=== PATIENT | female | born 1940 | race Hispanic/Latino ===

== ENCOUNTER 2017-01-04 17:50 | Emergency (ER) | payer MEDICARE, OTHER ==
[2017-01-04 18:14] VITALS: BMI 26.9
--- NOTE | 2017-01-04 18:17 | ED PDOC ---
Arrival/HPI <Oliva Aldana - Last Filed: 01/04/17 21:27> - General Historian: Patient <Shay Palma - Last Filed: 01/04/17 21:54> - General Time Seen by Provider: 01/04/17 18:13 - History of Present Illness Narrative History of Present Illness (Text): 01/04/17 18:17 76yo female with PMhx of bronchitis, CAD with stents, hypercholestrol, anxiety , BIBA for evaluation s/p trauma. Patient states she became dizzy and fell this evening. states she used a new inhaler for her Bronchitis today and felt dizzy s /p. Notes that she landed on her left side. Having pain to her left hip, pelvic and thigh. Denies LOC, but states reports persistent lightheadedness. Denies headache, visual change, focal weakness, aphasia, back pain, abdominal pain nausea, vomiting, any other complaint. she notes surgical history of left hip replacement. She is currently on Plavix and ASA. (Shay Palma) Past Medical History - Provider Review Nursing Documentation Reviewed: Yes - Infectious Disease Hx of Infectious Diseases: None - Tetanus Immunization Tetanus Immunization: Unknown - Cardiac Hx Pacemaker: No - Pulmonary Hx Chronic Obstructive Pulmonary Disease (COPD): Yes - Neurological Hx Paralysis: No - HEENT Hx HEENT Disorder: No - Renal Hx Kidney Stones: Yes - Endocrine/Metabolic Hx Endocrine Disorders: No - Hematological/Oncological Hx Blood Transfusions: Yes (x4) Hx Blood Transfusion Reaction: No - Integumentary Hx Dermatological Disorder: No - Musculoskeletal/Rheumatological Hx Musculoskeletal Disorders: Yes (L HIP ORIF,L4 L5 LAMINECTOMY,BACK SX,REX.KNEE ,L SHOULDER,RT ANKLE) - Gastrointestinal Hx Gastrointestinal Disorders: Yes Other/Comment: gi bleed - Genitourinary/Gynecological Hx Genitourinary Disorders: No - Psychiatric Hx Emotional Abuse: No Hx Physical Abuse: No Hx Substance Use: No - Surgical History Other/Comment: right ankle pin, right knee fx with pin, carpal tunnel, right hip replacement, vertebrae replacement with 2 screws, 2 rods, 2 artificial verterbrae to cervical spine, and 2 in mid back, left knee. arthoscopic sx - Anesthesia Hx Anesthesia Reactions: No Hx Malignant Hyperthermia: No - Suicidal Assessment Feels Threatened In Home Enviroment: No <Shay Palma - Last Filed: 01/04/17 21:54> Family/Social History - Physician Review Nursing Documentation Reviewed: Yes Family/Social History: Unknown Family HX Smoking Status: Current Some Days Smoker Hx Alcohol Use: No Hx Substance Use: No Hx Substance Use Treatment: No <Shay Palma A - Last Filed: 01/04/17 21:54> Allergies/Home Meds <Oliva Aldana - Last Filed: 01/04/17 21:27> <Shay Palma A - Last Filed: 01/04/17 21:54> Allergies/Adverse Reactions: Allergies codeine Allergy (Verified 01/04/17 18:14) ANAPHYLAXIS hydromorphone HCl [From Dilaudid] Allergy (Verified 01/04/17 18:14) ANAPHYLAXIS meperidine HCl [From Demerol] Allergy (Verified 01/04/17 18:14) ANAPHYLAXIS Home Medications: Home Meds Medication Instructions Recorded Confirmed Clopidogrel [Plavix] 75 mg PO DAILY 04/18/12 01/04/17 Raloxifene HCl [Evista] 60 mg PO DAILY 04/18/12 01/04/17 Aspirin [Adult Low Dose Aspirin EC] 81 mg PO DAILY 10/18/16 01/04/17 Pantoprazole Sodium [Protonix] 40 mg PO DAILY 10/18/16 01/04/17 Rosuvastatin Calcium [Crestor] 20 mg PO HS 10/18/16 01/04/17 ALPRAZolam [Xanax] 1 mg PO DAILY 10/28/16 01/04/17 Ascorbate Calcium [Vitamin C] 500 mg PO DAILY 10/28/16 01/04/17 Calcium Carbonate/Vitamin D3 1 each PO DAILY 10/28/16 01/04/17 [Calcium 1,000 + D3 Caplet] Folic Acid 1 mg PO DAILY 10/28/16 01/04/17 Iron Polysaccharide Complex 150 mg PO DAILY 10/28/16 01/04/17 [Nu-Iron 150] Levocetirizine Dihydrochloride 5 mg PO DAILY 10/28/16 01/04/17 [Xyzal] Montelukast [Singulair] 10 mg PO DAILY 10/28/16 01/04/17 Multivit, Iron, Min #5, FA 1 tab PO DAILY 10/28/16 01/04/17 [Strovite Forte] Oxycodone HCl/Acetaminophen 1 each PO PRN PRN 10/28/16 01/04/17 [Percocet 10-325 mg Tablet] Tolterodine Tartrate [Detrol LA] 4 mg PO DAILY 10/28/16 01/04/17 Review of Systems - Physician Review All systems were reviewed & negative as marked: Yes - Review of Systems Constitutional: Normal Eyes: Normal ENT: Normal Respiratory: Normal Cardiovascular: Normal Gastrointestinal: Normal Genitourinary Female: Normal Musculoskeletal: Arthralgias (Left hip/thigh pain) Skin: Normal Neurological: Dizziness. absent: Headache, Focal Weakness, Gait Changes, Speech Changes Endocrine: Normal Hemo/Lymphatic: Normal Psychiatric: Normal <Diru,Happiness A - Last Filed: 01/04/17 21:54> Physical Exam Vital Signs Reviewed: Yes Temperature: Afebrile Blood Pressure: Normal Pulse: Regular Respiratory Rate: Normal Appearance: Positive for: Well-Appearing, Non-Toxic, Comfortable Pain Distress: None Mental Status: Positive for: Alert and Oriented X 3 - Systems Exam Head: Present: Atraumatic, Normocephalic Pupils: Present: PERRL Extroacular Muscles: Present: EOMI Conjunctiva: Present: Normal Mouth: Present: Moist Mucous Membranes Neck: Present: Normal Range of Motion Respiratory/Chest: Present: Clear to Auscultation, Good Air Exchange. No: Respiratory Distress, Accessory Muscle Use Cardiovascular: Present: Regular Rate and Rhythm, Normal S1, S2. No: Murmurs Abdomen: Present: Normal Bowel Sounds. No: Tenderness, Distention, Peritoneal Signs Back: Present: Normal Inspection Upper Extremity: Present: Normal Inspection, Normal ROM. No: Cyanosis, Edema, Tenderness Lower Extremity: Present: NORMAL PULSES, Normal ROM, Tenderness (LEft proximal thigh/hip), Neurovascularly Intact. No: Edema, Swelling, Erythema, Deformity, Temperature Abnormalties Neurological: Present: GCS=15, CN II-XII Intact, Speech Normal, Motor Func Grossly Intact, Normal Sensory Function, Memory Normal, Other (No focal neurological deficit) Skin: Present: Warm, Dry, Normal Color. No: Rashes Psychiatric: Present: Alert, Oriented x 3, Normal Insight, Normal Concentration <Diru,Happiness A - Last Filed: 01/04/17 21:54> Vital Signs Temp Pulse Resp BP Pulse Ox 01/04/17 21:47 97.7 F 94 H 18 145/89 95 01/04/17 20:52 81 19 159/77 H 98 01/04/17 17:51 98.4 F 82 18 173/74 H 90 L Medical Decision Making <Oliva Aldana - Last Filed: 01/04/17 21:27> <Shay Palma - Last Filed: 01/04/17 21:54> ED Course and Treatment: 01/04/17 21:29 Patient seen and examined - with near syncopal episode; no head injury - on asa and plavix - CT showing pelvis fx with hemorrhage and now hematuria - hemodynamically stable - spoke with Dr. Addison, [facility] accepting attending for transfer. (Oliva Aldana) 01/04/17 20:57 Pt present to ED for stated history. While in ED she is hemodynamically stable. AAO x3. Appears comfortable and in no distress. Lab was unremarkable EKG NSR @79bpm . No ST changes noted. Head CT - No acute intracranial derangement Hip CT - Acute fracture of the left superior pubic ramus. This is comminuted and minimally displaced. Acute fracture of the left inferior pubic ramus, which is nondisplaced. Arthroplasty device in the right hip. Intramedullary lubna and screw device in the left hip. No additional acute fractures seen. No evidence of acute dislocation. No evidence of significant widening of the pubic symphysis or sacroiliac joints. SOFT TISSUES: No evidence of significant soft tissue hematoma. INTRAPERITONEAL SPACE: Small to moderate amount of acute hemorrhage in the left pelvis, mainly located anteriorly. This abuts the bladder on the left. IMPRESSION: - Left pelvic hemorrhage. - Acute fractures of the left superior and inferior pubic rami. - See above for remaining findings. 01/04/17 21:06 On re evaluation pt remain hemodynamically stable. AAO x3. 1L of NS was ordered Case was DIXON Mccarthy Case was DW Dr. Aldana who also saw patient in ED. The plan was to transfer patient to a trauma center secondary to the hemorrhage on the CT. PT is also on anticoagulant, Plavix and ASA. Result and plan was DW the patient and she agreed. Dr. Aldana DC with Dr. Addison, at trauma center and he accepted patient for transfer. (Diru,Happiness A) - Lab Interpretations Lab Results: 01/04/17 18:24 01/04/17 18:24 Lab Results 01/04/17 20:20: Urine Color Dark red, Urine Appearance Cloudy, Urine pH 7.0, Ur Specific [place] 1.015, Urine Protein >=300 H, Urine Glucose (UA) Negative, Urine Ketones Trace H, Urine Blood Large H, Urine Nitrate Positive H, Urine Bilirubin Negative, Urine Urobilinogen 1.0 H, Ur Leukocyte Esterase Small H, Urine RBC Tntc, Urine WBC 5 - 10 01/04/17 18:24: WBC 10.7 D, RBC 4.10, Hgb 10.6 L, Hct 32.7 L, MCV 79.8 L, MCH 25.9, MCHC 32.4, RDW 17.2 H, Plt Count 252, MPV 10.3, Gran % 77.8 H, Lymph % ( Auto) 15.7 L, Cole % (Auto) 4.3, Eos % (Auto) 1.9, Baso % (Auto) 0.3, Gran # 8.32 H, Lymph # 1.7, Cole # 0.5, Eos # 0.2, Baso # 0.03, PT 11.4, INR 1.06, APTT 28.6, Sodium 138, Potassium 3.9, Chloride 103, Carbon Dioxide 26, Anion Gap 13, BUN 17, Creatinine 0.8, Est GFR ( Amer) > 60, Est GFR (Non-Af Amer) > 60, Random Glucose 89, Calcium 9.8, Total Bilirubin 0.4, AST 37, ALT 35 , Alkaline Phosphatase 61, Lactate Dehydrogenase 743 H, Total Creatine Kinase 63 , Troponin I < 0.01, Total Protein 8.0, Albumin 4.1, Globulin 3.9, Albumin/ Globulin Ratio 1.1 - RAD Interpretation Radiology Orders: 01/04/17 18:15 HEAD W/O CONTRAST [CT] Stat Hip [CT HIP W/O CONTRAST BILATERAL] [CT] Stat 01/04/17 18:16 Femur Left [FEMUR MIN 2 VIEWS LT] [RAD] Stat - Medication Orders Current Medication Orders: Sodium Chloride (Sodium Chloride 0.9%) 1,000 mls @ 999 mls/hr IV .Q1H1M STA Stop: 01/04/17 22:03 Last Admin: 01/04/17 21:11 Dose: 999 MLS/HR eMAR Start Stop Document 01/04/17 21:11 SE (Rec: 01/04/17 21:11 SE [id number]) Intravenous Solution Start Date 01/04/17 Start Time 21:11 Discontinued Medications Acetaminophen (Tylenol 325mg Tab) 650 mg PO STAT STA Stop: 01/04/17 19:04 Last Admin: 01/04/17 19:07 Dose: 650 MG MAR Pain/Vitals Document 01/04/17 19:07 SE (Rec: 01/04/17 19:07 [id number]) Pain Reassessment Is This A Pain ReAssessment? No Sleep Is patient sleeping during reassessment? No Presence of Pain Presence of Pain Yes Pain Scale Used Pain Scale Used Numeric Location Left, Right or Bilateral Left Pain Location Body Site Hip Acetaminophen (Tylenol 325mg Tab) Confirm Administered Dose 650 mg .ROUTE .STK- MED ONE Stop: 01/04/17 19:07 Last Admin: 01/04/17 19:07 Dose: Tramadol HCl (Ultram) Confirm Administered Dose 50 mg .ROUTE .STK-MED ONE Stop: 01/04/17 21:11 Last Admin: 01/04/17 21:24 Dose: Tramadol HCl (Ultram) 50 mg PO STAT STA Stop: 01/04/17 21:15 Last Admin: 01/04/17 21:28 Dose: 50 MG Disposition/Present on Arrival - Present on Arrival Any Indicators Present on Arrival: No <Oliva Aldana - Last Filed: 01/04/17 21:27> - Present on Arrival Any Indicators Present on Arrival: No History of DVT/PE: No History of Uncontrolled Diabetes: No Urinary Catheter: No History Surgical Site Infection Following: None - Disposition Have Diagnosis and Disposition been Completed?: Yes Disposition Time: 21:40 <Shay Palma - Last Filed: 01/04/17 21:54> - Disposition Diagnosis: Hip fracture, Hemorrhage Disposition: Transfer [facility] Patient Problems: Current Active Problems Problem Status Diagnosed Hemorrhage Acute Hip fracture Acute Near syncope Acute Condition: GUARDED Referrals: Carlos Mccarthy MD [Primary Care Provider] - Follow up with primary
[2017-01-04 18:30] LABS: ADD MANUAL DIFF? NO
[2017-01-04 18:45] LABS: BASO # 0.03 K/mm3 (0.0-2.0); BASO % 0.3 % (0.0-3.0); EOS # 0.2 (0.0-0.7); EOS % 1.9 % (1.5-5.0); GRAN # 8.32 (1.4-6.5); GRAN % 77.8 % (50.0-68.0); HEMATOCRIT 32.7 % (36.0-48.0); LYMPH # 1.7 (1.2-3.4); LYMPH % 15.7 % (22.0-35.0); MEAN CELL VOLUME 79.8 fL (80.0-105.0); MEAN CORPUSCULAR HEMOGLOBIN 25.9 pg (25.0-35.0); MEAN CORPUSCULAR HGB CONC 32.4 g/dl (31.0-37.0); MEAN PLATELET VOLUME 10.3 fl (7.0-11.0); MONO # 0.5 (0.1-0.6); MONO % 4.3 % (1.0-6.0); PLATELET COUNT 252 10^3/uL (120.0-450.0); RED CELL DISTRIBUTION WIDTH 17.2 % (11.5-14.5); WHITE BLOOD COUNT 10.7 10^3/ul (4.5-11.0)
[2017-01-04 18:47] LABS: ALB/GLOB RATIO 1.1 (1.1-1.8); ALKALINE PHOSPHATASE 61 U/L (38-133); ALT/SGPT 35 U/L (7-56); AST/SGOT 37 U/L (15-39); BILIRUBIN,TOTAL 0.4 mg/dL (0.2-1.3); BLOOD UREA NITROGEN 17 mg/dL (7-21); CALCIUM 9.8 mg/dL (8.4-10.5); CARBON DIOXIDE 26 mmol/L (21-33); CHLORIDE 103 mmol/L (98-107); GFR AFRICAN-AMERICAN > 60; GLUCOSE,RANDOM 89 mg/dL (70-110); POTASSIUM 3.9 mmol/L (3.6-5.0); SODIUM 138 mmol/L (132-148)
[2017-01-04 18:57] LABS: INR 1.06 (0.93-1.08); PARTIAL THROMBOPLASTIN TIME 28.6 Seconds (23.7-30.8)
[2017-01-04 18:59] LABS: TROPONIN I < 0.01 ng/mL
--- NOTE | 2017-01-04 20:24 | CT ---
EXAM: CT Head Without Intravenous Contrast CLINICAL HISTORY: 76 years old, female; Injury or trauma; Fall; Initial encounter; Blunt trauma (contusions or hematomas); Consciousness not specified; Additional info: Head injury/dizziness TECHNIQUE: Axial computed tomography images of the head/brain without intravenous contrast. EXAM DATE/TIME: 01/04/2017 6:15 PM COMPARISON: None is available. 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 Areas of hypodensity seen in the white matter bilaterally, nonspecific in appearance, but most likely representing chronic small vessel ischemic changes, in a patient of this age. Diffuse, age-related cortical atrophy and ventriculomegaly. No significant acute abnormality identified. No acute hemorrhage seen within the brain. No acute extra-axial fluid collections visualized. No evidence of significant mass effect within the brain. VENTRICLES: See above. BONES/JOINTS: No acute fractures or other acute bony abnormality noted. SOFT TISSUES: No acute abnormality of the visualized soft tissues is seen. VASCULATURE: Atherosclerotic calcification. SINUSES: Christofer mucosal thickening in the bilateral ethmoid and left frontal sinuses. MASTOID AIR CELLS: Mastoid air cells appear clear. IMPRESSION: - No evidence of acute intracranial injury or fractures. - See above for remaining findings.
--- NOTE | 2017-01-04 20:35 | CT ---
EXAM: CT Left Lower Extremity Without Intravenous Contrast, Hip CT Right Lower Extremity Without Intravenous Contrast, Hip CLINICAL HISTORY: 76 years old, female; Injury or trauma; Fall; Initial encounter; Blunt trauma; Hip; Bilateral; Prior surgery; Surgery date: 6+ months; Surgery type: Bilateral hip surgeries; Additional info: Hip/left hip pain S/P trauma TECHNIQUE: Axial computed tomography images of the bilateral hips without intravenous contrast. Coronal and sagittal reformatted images were created and reviewed. EXAM DATE/TIME: 01/04/2017 6:15 PM COMPARISON: No relevant prior studies available. FINDINGS: LIMITATIONS: Metallic hardware in the hips bilaterally. There is associated streak artifact, which obscures adjacent structures. BONES/JOINTS: Acute fracture of the left superior pubic ramus. This is comminuted and minimally displaced. Acute fracture of the left inferior pubic ramus, which is nondisplaced. Arthroplasty device in the right hip. Intramedullary lubna and screw device in the left hip. No additional acute fractures seen. No evidence of acute dislocation. No evidence of significant widening of the pubic symphysis or sacroiliac joints. SOFT TISSUES: No evidence of significant soft tissue hematoma. INTRAPERITONEAL SPACE: Small to moderate amount of acute hemorrhage in the left pelvis, mainly located anteriorly. This abuts the bladder on the left. IMPRESSION: - Left pelvic hemorrhage. - Acute fractures of the left superior and inferior pubic rami. - See above for remaining findings.
[2017-01-04 20:38] LABS: URINE BILIRUBIN NEGATIVE (NEGATIVE); URINE BLOOD LARGE (NEGATIVE); URINE GLUCOSE (UA) NEGATIVE (NEGATIVE); URINE KETONE TRACE mg/dL (NEGATIVE); URINE LEUKOCYTE ESTERASE SMALL Leu/uL (NEGATIVE); URINE PROTEIN >=300 mg/dL (<30 mg/dL)
[2017-01-04 20:44] LABS: URINE APPEARANCE CLOUDY (CLEAR); URINE COLOR DARK RED (YELLOW)
[2017-01-04 20:48] LABS: URINE RBC TNTC /hpf (0-2)
[2017-01-04] MEDS ORDERED: Sodium Chloride 0.9% 1,000 ML IV STA (21:03)
[2017-01-04 21:48] VITALS: BP 145/89; PULSE 94; RESP 18; TEMP 97.7; O2SAT 95
--- NOTE | 2017-01-05 09:05 | RAD ---
PROCEDURE: Left Femur Radiographs. HISTORY: thigh pain s/p trauma COMPARISON: None. TECHNIQUE: AP and Lateral Radiographs of the left femur. FINDINGS: FEMUR: Normal. No fracture. SOFT TISSUES: Normal. OTHER FINDINGS: None. IMPRESSION: Unremarkable radiographs of the left femur.
--- NOTE | 2017-01-05 15:34 | CARD ---
APPROVED REPORT EKG Measurement Heart [id number] MI [id number] <Conclusion> Normal sinus rhythm Normal ECG
== END 2017-01-04 22:00 | disposition short-term general hospital (02) ==
LOC: ED 17:50
DX: S32.592A Other specified fracture of left pubis, initial encounter for closed fracture (principal); W19.XXXA Unspecified fall, initial encounter; R58 Hemorrhage, not elsewhere classified; F17.210 Nicotine dependence, cigarettes, uncomplicated; Z96.641 Presence of right artificial hip joint
CPT/HCPCS: 70450; 73552; 73700; 80053; 81001; 82550; 83615; 84484; 85025; 85610; 85730; 93005; 99285; J7040

== ENCOUNTER 2017-08-30 10:44 | Inpatient (IN) | payer MEDICARE, OTHER ==
[2017-08-30 10:53] VITALS: BMI 24.0
[2017-08-30 11:52] LABS: BASO # 0.02 K/mm3 (0.0-2.0); BASO % 0.3 % (0.0-3.0); EOS # 0.1 (0.0-0.7); EOS % 1.8 % (1.5-5.0); GRAN # 6.11 (1.4-6.5); GRAN % 77.3 % (50.0-68.0); LYMPH # 1.3 (1.2-3.4); LYMPH % 15.8 % (22.0-35.0); MEAN CELL VOLUME 84.6 fl (80.0-105.0); MEAN CORPUSCULAR HEMOGLOBIN 26.9 pg (25.0-35.0); MEAN CORPUSCULAR HGB CONC 31.8 g/dl (31.0-37.0); MONO # 0.4 (0.1-0.6); MONO % 4.8 % (1.0-6.0); RED CELL DISTRIBUTION WIDTH 15.5 % (11.5-14.5); WHITE BLOOD COUNT 7.9 10^3/ul (4.5-11.0)
[2017-08-30 12:01] LABS: ALB/GLOB RATIO 1.1 (1.1-1.8); ALKALINE PHOSPHATASE 62 U/L (38-126); ALT/SGPT 25 U/L (7-56); AST/SGOT 30 U/L (14-36); BILIRUBIN,TOTAL 0.5 mg/dL (0.2-1.3); BLOOD UREA NITROGEN 17 mg/dL (7-21); CALCIUM 10.3 mg/dL (8.4-10.5); CARBON DIOXIDE 26 mmol/L (21-33); CHLORIDE 103 mmol/L (98-107); GFR AFRICAN-AMERICAN > 60; GLUCOSE,RANDOM 95 mg/dL (70-110); POTASSIUM 4.7 mmol/L (3.6-5.0); SODIUM 138 mmol/L (132-148); TOTAL PROTEIN 8.1 g/dL (5.8-8.3)
--- NOTE | 2017-08-30 13:12 | RAD ---
PROCEDURE: Radiographs of the chest and bilateral ribs HISTORY: fall, rib pain COMPARISON: 06/29/2017 TECHNIQUE: Frontal radiograph of the chest and multiple oblique radiographs of the bilateral ribs were obtained. FINDINGS: RIGHT RIBS: Displaced healing fractures are seen of the right 6 7th 8 and 10th ribs. There is now callus formation around the fractures. LEFT RIBS: No fracture or focal lesion visualized. LUNGS: Minimal infiltrate at the right lung base and small right pleural effusion showing improvement from prior exam PLEURA: No pneumothorax or pleural fluid. CARDIOVASCULAR: Normal sized heart. No pulmonary vascular congestion. OTHER FINDINGS: None. IMPRESSION: Displaced healing fractures are seen of the right 6 7th 8 and 10th ribs. There is now callus formation around the fractures.
[2017-08-30] MEDS ORDERED: Azithromycin 500MG/NS 250ml 500 MG/250 ML BAG IVPB STA (13:36)
[2017-08-30] MEDS ORDERED: cefTRIAXone 1 gm 100 ML IVPB STA (13:36)
[2017-08-30] MEDS ORDERED: cefTRIAXone 1 gm 1 GM/100 ML BAG IVPB STA (13:42)
[2017-08-30 14:23] LABS: TROPONIN I < 0.01 ng/mL
--- NOTE | 2017-08-30 14:23 | CT ---
PROCEDURE: CT HEAD WITHOUT CONTRAST. HISTORY: dizzy/ fall COMPARISON: 01/04/2017 TECHNIQUE: Axial computed tomography images were obtained through the head/brain without intravenous contrast. Radiation dose: Total exam DLP = 703 mGy-cm. This CT exam was performed using one or more of the following dose reduction techniques: Automated exposure control, adjustment of the mA and/or kV according to patient size, and/or use of iterative reconstruction technique. FINDINGS: HEMORRHAGE: No intracranial hemorrhage. BRAIN: No mass effect or edema. Chronic microvascular changes. Mild atrophy VENTRICLES: Unremarkable. No hydrocephalus. CALVARIUM: Unremarkable. PARANASAL SINUSES: Unremarkable as visualized. No significant inflammatory changes. MASTOID AIR CELLS: Unremarkable as visualized. No inflammatory changes. OTHER FINDINGS: None. IMPRESSION: No acute findings
--- NOTE | 2017-08-30 15:23 | ED PDOC ---
Arrival/HPI - General Chief Complaint: Rib Injury Time Seen by Provider: 08/30/17 10:59 Historian: Patient - History of Present Illness Narrative History of Present Illness (Text): 08/30/17 15:12 77-year-old female presents to the with left-sided rib pain status post fall. Patient states 2 nights ago she was dizzy and tripped and fell landing on the edge of her walker sustaining an injury to the left ribs. Patient denies head or head. She denies headache. Denies loss of consciousness. Patient states she was feeling okay yesterday and had been applying heat to the ribs. Patient states when she woke up today the pain was severe. Patient states the pain is worse with movement or deep inspiration. She denies chest pain. Patient states the pain is localized to the lateral posterior aspect of the left ribs. Patient states she has a history of right rib fracture a few months ago. Patient states she recently completed a course of Levaquin for pneumonia. Patient denies abdominal pain. No urinary symptoms. Denies fevers or chills. Patient states she has a history of chronic bronchitis. No other complaints. Patient states she has a history of dizziness and is being followed by a neurologist and has an outpatient CT angiography of the head scheduled for this Monday. Time/Duration: Other (2 nights ago) Symptom Course: Worsening Quality: Stabbing, Throbbing Past Medical History - Provider Review Nursing Documentation Reviewed: Yes - Travel History Have you recently traveled outside [place] w/in the past 3 mons?: No - Infectious Disease Hx of Infectious Diseases: None - Tetanus Immunization Tetanus Immunization: Unknown - Reproductive Menopause: No - Cardiac Hx Pacemaker: No - Pulmonary Hx Chronic Obstructive Pulmonary Disease (COPD): Yes - Neurological Hx Paralysis: No - HEENT Hx HEENT Disorder: No - Renal Hx Kidney Stones: Yes - Endocrine/Metabolic Hx Endocrine Disorders: No - Hematological/Oncological Hx Blood Transfusions: Yes (x4) Hx Blood Transfusion Reaction: No - Integumentary Hx Dermatological Disorder: No - Musculoskeletal/Rheumatological Hx Musculoskeletal Disorders: Yes (L HIP ORIF,L4 L5 LAMINECTOMY,BACK SX,REX.KNEE ,L SHOULDER,RT ANKLE) - Gastrointestinal Hx Gastrointestinal Disorders: Yes Other/Comment: gi bleed - Genitourinary/Gynecological Hx Genitourinary Disorders: No - Psychiatric Hx Emotional Abuse: No Hx Physical Abuse: No Hx Substance Use: No - Surgical History Other/Comment: right ankle pin, right knee fx with pin, carpal tunnel, right hip replacement, vertebrae replacement with 2 screws, 2 rods, 2 artificial verterbrae to cervical spine, and 2 in mid back, left knee. arthoscopic sx - Anesthesia Hx Anesthesia: Yes Hx Anesthesia Reactions: No Hx Malignant Hyperthermia: No - Suicidal Assessment Feels Threatened In Home Enviroment: No Family/Social History - Physician Review Nursing Documentation Reviewed: Yes Family/Social History: Unknown Family HX Smoking Status: Current Some Days Smoker Hx Alcohol Use: No Hx Substance Use: No Hx Substance Use Treatment: No Allergies/Home Meds Allergies/Adverse Reactions: Allergies codeine Allergy (Verified 08/30/17 10:58) ANAPHYLAXIS hydromorphone HCl [From Dilaudid] Allergy (Verified 08/30/17 10:58) ANAPHYLAXIS meperidine HCl [From Demerol] Allergy (Verified 08/30/17 10:58) ANAPHYLAXIS Home Medications: Home Meds Medication Instructions Recorded Confirmed Clopidogrel [Plavix] 75 mg PO DAILY 04/18/12 08/30/17 Raloxifene HCl [Evista] 60 mg PO DAILY 04/18/12 08/30/17 Aspirin [Adult Low Dose Aspirin EC] 81 mg PO DAILY 10/18/16 08/30/17 Pantoprazole Sodium [Protonix] 40 mg PO DAILY 10/18/16 08/30/17 Rosuvastatin Calcium [Crestor] 20 mg PO HS 10/18/16 08/30/17 ALPRAZolam [Xanax] 1 mg PO DAILY 10/28/16 08/30/17 Ascorbate Calcium [Vitamin C] 500 mg PO DAILY 10/28/16 08/30/17 Calcium Carbonate/Vitamin D3 1 each PO DAILY 10/28/16 08/30/17 [Calcium 1,000 + D3 Caplet] Folic Acid 1 mg PO DAILY 10/28/16 08/30/17 Iron Polysaccharide Complex 150 mg PO DAILY 10/28/16 08/30/17 [Nu-Iron 150] Levocetirizine Dihydrochloride 5 mg PO DAILY 10/28/16 08/30/17 [Xyzal] Montelukast [Singulair] 10 mg PO DAILY 10/28/16 08/30/17 Multivit,Iron,Min 5/Folic Acid 1 tab PO DAILY 10/28/16 08/30/17 [Strovite Forte] Oxycodone HCl/Acetaminophen 1 each PO PRN PRN 10/28/16 08/30/17 [Percocet 10-325 mg Tablet] Tolterodine Tartrate [Detrol LA] 4 mg PO DAILY 10/28/16 08/30/17 Review of Systems - Review of Systems Constitutional: absent: Fatigue, Fevers ENT: absent: Sore Throat, Sinus Congestion Respiratory: SOB, Cough Cardiovascular: absent: Chest Pain, Palpitations Gastrointestinal: absent: Abdominal Pain, Nausea, Vomiting Genitourinary Female: absent: Dysuria Musculoskeletal: Arthralgias. absent: Back Pain, Neck Pain Skin: absent: Rash, Pruritis Neurological: Dizziness. absent: Headache Psychiatric: absent: Anxiety, Depression Physical Exam Vital Signs Reviewed: Yes Vital Signs Temp Pulse Resp BP Pulse Ox 08/30/17 15:00 79 18 116/71 95 08/30/17 13:26 86 18 114/69 95 08/30/17 11:24 98.0 F 86 17 111/68 88 L 08/30/17 11:03 98.1 F 85 18 111/68 95 Temperature: Afebrile Blood Pressure: Normal Pulse: Regular Respiratory Rate: Tachypneic Appearance: Positive for: Well-Appearing, Non-Toxic, Comfortable Pain Distress: None Mental Status: Positive for: Alert and Oriented X 3 - Systems Exam Head: Present: Atraumatic Mouth: Present: Moist Mucous Membranes Neck: Present: Normal Range of Motion. No: MIDLINE TENDERNESS, Paraspinal Tenderness Respiratory/Chest: Present: Decreased Breath Sounds, Rhonchi, Tachypneic, Tender to Palpation (+ ttp over right and left lateral and posterior ribs; no edema, no erythema; no ecchymosis; no midline tenderness. ). No: Clear to Auscultation, Respiratory Distress, Wheezes Cardiovascular: Present: Regular Rate and Rhythm. No: Tachycardic Abdomen: No: Tenderness, Distention, Rebound, Guarding Back: No: Midline Tenderness, Paraspinal Tenderness Upper Extremity: Present: Normal ROM Lower Extremity: Present: Normal ROM Neurological: Present: GCS=15, Speech Normal Skin: Present: Warm, Dry Psychiatric: Present: Alert, Oriented x 3 Medical Decision Making ED Course and Treatment: 08/30/17 15:32 77yr old female with b/l rib pain s/p dizziness and fall 2 days ago. Hypoxic at 88% on room air slightly tachypneic. Patient given 3 L nasal cannula oxygen saturation 94-95% CBC within normal limits CMP within normal limits Troponin within normal limits EKG shows normal sinus rhythm at 83 bpm normal axis normal intervals no ST elevations cxr with b/l ribs; FINDINGS: RIGHT RIBS: Displaced healing fractures are seen of the right 6 7th 8 and 10th ribs. There is now callus formation around the fractures. LEFT RIBS: No fracture or focal lesion visualized. LUNGS: Minimal infiltrate at the right lung base and small right pleural effusion showing improvement from prior exam PLEURA: No pneumothorax or pleural fluid. CARDIOVASCULAR: Normal sized heart. No pulmonary vascular congestion. OTHER FINDINGS: None. IMPRESSION: Displaced healing fractures are seen of the right 6 7th 8 and 10th ribs. There is now callus formation around the fractures. pt given incentive spirometer; blood cultures pending. rocephin and zithromax started IV. pt with hypoxia; frequent falls/ recurrent dizziness with PNA on xray with failure of outpatient abx. splinting. requiring o2 and pain control. will admit. case discussed with dr. joshi accepts admission. consult pulm and neuro. impression; pneumonia with failure outpatient abx, rib fractures, rib contusion , dizziness, fall admit to remote tele. - Lab Interpretations Lab Results: 08/30/17 11:40 08/30/17 11:40 Lab Results 08/30/17 11:45: Lactate Dehydrogenase 437, Total Creatine Kinase 39, Troponin I < 0.01 08/30/17 11:40: WBC 7.9, RBC 4.49, Hgb 12.1, Hct 38.0, MCV 84.6, MCH 26.9, MCHC 31.8, RDW 15.5 H, Plt Count 255, MPV 10.0, Gran % 77.3 H, Lymph % (Auto) 15.8 L , Fannin % (Auto) 4.8, Eos % (Auto) 1.8, Baso % (Auto) 0.3, Gran # 6.11, Lymph # 1.3, Fannin # 0.4, Eos # 0.1, Baso # 0.02 08/30/17 11:40: Sodium 138, Potassium 4.7, Chloride 103, Carbon Dioxide 26, Anion Gap 14, BUN 17, Creatinine 0.7, Est GFR ( Amer) > 60, Est GFR (Non- Af Amer) > 60, Random Glucose 95, Calcium 10.3, Total Bilirubin 0.5, AST 30, ALT 25, Alkaline Phosphatase 62, Total Protein 8.1, Albumin 4.3, Globulin 3.8, Albumin/Globulin Ratio 1.1 - RAD Interpretation Radiology Orders: 08/30/17 11:24 RIBS BILATERAL W/PA CHEST [RAD] Stat 08/30/17 13:43 HEAD W/O CONTRAST [CT] Stat - Medication Orders Current Medication Orders: Discontinued Medications Azithromycin (Zithromax 500mg In Ns) 500 mg in 250 mls @ 167 mls/hr IVPB STAT STA PRN Reason: Protocol Stop: 08/30/17 15:05 Ceftriaxone Sodium (Rocephin 1 Gram Ivpb) 1 gm in 100 mls @ 200 mls/hr IVPB STAT STA PRN Reason: Protocol Stop: 08/30/17 14:11 Last Admin: 08/30/17 14:29 Dose: 200 mls/hr eMAR Start Stop Document 08/30/17 14:29 HI (Rec: 08/30/17 14:34 HI [facility] [id number]) Intravenous Solution Start Date 08/30/17 Start Time 14:33 Tramadol HCl (Ultram) 50 mg PO STAT STA Stop: 08/30/17 12:36 Last Admin: 08/30/17 12:44 Dose: 50 mg MAR Pain Assessment Document 08/30/17 12:44 HI (Rec: 08/30/17 12:45 HI [facility] [id number]) Pain Reassessment Is this a pain reassessment? No Sleep Is patient sleeping during reassessment? No Presence of Pain Presence of Pain Yes Disposition/Present on Arrival - Present on Arrival Any Indicators Present on Arrival: No History of DVT/PE: No History of Uncontrolled Diabetes: No Urinary Catheter: No History of Decub. Ulcer: No History Surgical Site Infection Following: None - Disposition Have Diagnosis and Disposition been Completed?: Yes Diagnosis: Dizziness, Hypoxia, Rib contusion, Ribs, multiple fractures Disposition: HOSPITALIZED Disposition Time: 13:31 Patient Plan: Telemetry Condition: FAIR
--- NOTE | 2017-08-30 17:57 | CP.PCM.CON ---
<Maren Tobin - Last Filed: 08/30/17 17:55> History of Present Illness - History of Present Illness History of Present Illness: PGY-2 Neurology consult note for Dr. Dougherty's service 77-year-old female with PMH of HTN, COPD, cardiac stntes, HLD, CAD, arthritis presents to the with left-sided rib pain status post fall. Patient states 2 nights ago she was dizzy and tripped and fell landing on the edge of her walker sustaining an injury to the left ribs. Patient denies hitting her head, headache , loss of consciousness. Patient was recently in Dr. Dougherty's office for dizziness. She stated that it gets worst with standing. She described it as rishi room spinning. Most likely positional vertigo that contributed to fall. Patient states she recently completed a course of Levaquin for pneumonia. Patient denies abdominal pain. She denies chest pain, sob, urinary symptoms, fevers or chills, No other complaints. In ED patient was found to be hypoxiemic. PMH: HTN, COPD, cardiac stents, HLD, CAD, arthritis PSH: right ankle pin, right knee fx with pin, carpal tunnel, right hip replacement, vertebrae replacement with 2 screws, 2 rods, 2 artificial verterbrae to cervical spine, and 2 in mid back, left knee. arthoscopic sx social history: light smoker, denies alcohol use, illicit drug use Review of Systems - Review of Systems All systems: reviewed and no additional remarkable complaints except (as stated in HPI) Past Patient History - Infectious Disease Hx of Infectious Diseases: None - Tetanus Immunizations Tetanus Immunization: Unknown - Past Social History Smoking Status: Current Some Days Smoker - CARDIAC Hx Pacemaker: No - PULMONARY Hx Chronic Obstructive Pulmonary Disease (COPD): Yes - NEUROLOGICAL Hx Paralysis: No - HEENT Hx HEENT Problems: No - RENAL Hx Kidney Stones: Yes - ENDOCRINE/METABOLIC Hx Endocrine Disorders: No - HEMATOLOGICAL/ONCOLOGICAL Hx Blood Transfusions: Yes (x4) Hx Blood Transfusion Reaction: No - INTEGUMENTARY Hx Dermatological Problems: No - MUSCULOSKELETAL/RHEUMATOLOGICAL Hx Musculoskeletal Disorders: Yes (L HIP ORIF,L4 L5 LAMINECTOMY,BACK SX,REX.KNEE ,L SHOULDER,RT ANKLE) - GASTROINTESTINAL Hx Gastrointestinal Disorders: Yes Other/Comment: gi bleed - GENITOURINARY/GYNECOLOGICAL Hx Genitourinary Disorders: No - PSYCHIATRIC Hx Emotional Abuse: No Hx Physical Abuse: No Hx Substance Use: No - SURGICAL HISTORY Other/Comment: right ankle pin, right knee fx with pin, carpal tunnel, right hip replacement, vertebrae replacement with 2 screws, 2 rods, 2 artificial verterbrae to cervical spine, and 2 in mid back, left knee. arthoscopic sx - ANESTHESIA Hx Anesthesia: Yes Hx Anesthesia Reactions: No Hx Malignant Hyperthermia: No Meds Allergies/Adverse Reactions: Allergies Allergy/AdvReac Type Severity Reaction Status Date / Time codeine Allergy ANAPHYLAXIS Verified 08/30/17 17:57 hydromorphone HCl Allergy ANAPHYLAXIS Verified 08/30/17 17:57 [From Dilaudid] meperidine HCl [From Demerol] Allergy ANAPHYLAXIS Verified 08/30/17 17:57 Physical Exam - Constitutional Appears: No Acute Distress - Head Exam Head Exam: ATRAUMATIC, NORMAL INSPECTION, NORMOCEPHALIC - Eye Exam Eye Exam: Normal appearance - Respiratory Exam Respiratory Exam: NORMAL BREATHING PATTERN. absent: Respiratory Distress - Neurological Exam Neurological exam: Alert, CN II-XII Intact, Oriented x3 - Skin Skin Exam: Dry, Intact, Normal Color, Warm Results - Vital Signs Recent Vital Signs: Last Vital Signs Temp 98.1 F 08/30/17 16:23 Pulse 86 08/30/17 16:23 Resp 18 08/30/17 16:23 BP 105/57 L 08/30/17 16:23 Pulse Ox 95 08/30/17 16:23 - Labs Result Diagrams: 08/30/17 11:40 08/30/17 11:40 Assessment & Plan - Assessment and Plan (Free Text) Assessment: 77-year-old female with PMH of HTN, COPD, cardiac stents, HLD, CAD, arthritis presents to the with left-sided rib pain status post fall and dizziness due to probable BPV with hypoxemia with underlying de conditioning. 1. possible Positional vertigo 2. hypoxemia with PNA 3. HTN - CT head no acute findings - orthostatic vitals - CTA of neck and head - PT/OT - nasal cannula - monitor electrolytes, correct as needed case reviewed and discussed with attending <Prabhjot Dougherty - Last Filed: 08/30/17 19:58> Meds - Medications Medications: Current Medications Alprazolam (Xanax) 1 mg PO DAILY [facility] PRN Reason: Protocol Aspirin (Ecotrin) 81 mg PO DAILY [facility] Atorvastatin Calcium (Lipitor) 80 mg PO HS [facility] Clopidogrel Bisulfate (Plavix) 75 mg PO DAILY [facility] Folic Acid (Folic Acid) 1 mg PO DAILY [facility] Levalbuterol HCl (Xopenex) 1.25 mg IH [id number] [facility] Last Admin: 08/30/17 19:38 Dose: Not Given Montelukast Sodium (Singulair) 10 mg PO DAILY [facility] Non-Formulary Medication (Ascorbate Calcium [Vitamin C]) 500 mg PO DAILY [facility] Non-Formulary Medication (Calcium Carbonate/Vitamin D3 [Calcium 1,000 + D3 Caplet]) 1 each PO DAILY [facility] Non-Formulary Medication (Levocetirizine Dihydrochloride [Xyzal]) 5 mg PO DAILY [facility] Non-Formulary Medication (Multivit,Iron,Min 5/Folic Acid [Strovite Forte Caplet] ) 1 tab PO DAILY [facility] Oxycodone/Acetaminophen (Percocet 10/325 Mg Tab) tab PO PRN PRN PRN Reason: Pain, moderate (4-7) Pantoprazole Sodium (Protonix Ec Tab) 40 mg PO DAILY [facility] Polysaccharide Iron Complex (Ferrex-150) 150 mg PO DAILY [facility] Raloxifene HCl (Evista) 60 mg PO DAILY [facility] Tolterodine Tartrate (Detrol La) 4 mg PO DAILY [facility] Tramadol HCl (Ultram) 50 mg PO Q4H PRN PRN Reason: Pain, severe (8-10) Results - Vital Signs Recent Vital Signs: Last Vital Signs Temp 98.1 F 08/30/17 16:23 Pulse 86 08/30/17 19:19 Resp 18 08/30/17 16:23 BP 105/57 L 08/30/17 16:23 Pulse Ox 95 08/30/17 16:23 - Labs Result Diagrams: 08/30/17 11:40 08/30/17 11:40 Attending/Attestation - Attestation I have personally seen and examined this patient.: Yes I have fully participated in the care of the patient.: Yes I have reviewed all pertinent clinical information: Yes
[2017-08-30] MEDS ORDERED: Oxycodone/Acetaminophen 10/325 mg Tab PO PRN (18:44)
[2017-08-30] MEDS ORDERED: Albuterol-Ipratrop 3 mg / 0.5 (3 ml) UD IH ONE (18:55)
[2017-08-30] MEDS: Levalbuterol 1.25 MG/3 ML Inhal Soln UD IH SCH (19:38)
[2017-08-30] MEDS ORDERED: Influenza Vaccine 60 mcg/0.5 mL SYR (4YR UP) IM ONE (21:16)
[2017-08-30] MEDS ORDERED: Pneumococcal 23-Valent Vaccine IM ONE (21:16)
[2017-08-30] MEDS ORDERED: Albuterol 0.083% Inhal Sol (2.5 mg/3 mL) UD IH PRN (21:35)
[2017-08-30] MEDS ORDERED: Non Formulary Medication (Rosuvastatin Calcium [Crestor] 20 MG) PO SCH (22:00)
--- NOTE | 2017-08-30 23:35 | CARD ---
APPROVED REPORT EKG Measurement Heart [id number] <Conclusion> Normal sinus rhythm Normal ECG
[2017-08-31] MEDS: Levalbuterol 1.25 MG/3 ML Inhal Soln UD IH SCH ×6 (00:59→23:33)
[2017-08-31] MEDS: Budesonide 0.5 mg/2 ml Inhal Susp UD IH SCH ×2 (07:38→19:43)
--- NOTE | 2017-08-31 08:43 | RAD ---
HISTORY: follow up COMPARISON: 08/30/2017 FINDINGS: LUNGS: Minimal bibasilar infiltrates are seen. This could represent atelectasis or pneumonia. PLEURA: No significant pleural effusion identified, no pneumothorax apparent. CARDIOVASCULAR: Normal. OSSEOUS STRUCTURES: No significant abnormalities. VISUALIZED UPPER ABDOMEN: Normal. OTHER FINDINGS: None. IMPRESSION: Minimal bibasilar infiltrates are seen. This could represent atelectasis or pneumonia.
--- NOTE | 2017-08-31 09:06 | CP.PCM.PN ---
<Maren Tobin - Last Filed: 08/31/17 12:26> Subjective - Date & Time of Evaluation Date of Evaluation: 08/31/17 Time of Evaluation: 09:04 - Subjective Subjective: PGY-2 Neurology progress note for Dr. Dougherty's service Patient seen and examined at bedside. Patient is receiving breathing treatment. She reports shortness of breath and rib pain. Patient denies headache, chest pain, dizziness, weakness. Objective - Vital Signs/Intake and Output Vital Signs (last 24 hours): Temp Pulse Resp BP Pulse Ox 100.1 F H 89 20 134/71 88 L 08/31/17 00:00 08/31/17 05:04 08/31/17 00:00 08/31/17 00:00 08/31/17 00:00 Intake and Output: 08/31/17 08/31/17 06:59 18:59 Intake Total 360 Balance 360 - Medications Medications: Current Medications Albuterol Sulfate (Albuterol 0.083% Inhal Petty (2.5 Mg/3 Ml) Ud) 2.5 mg IH TIDRESP PRN PRN Reason: Wheezing Alprazolam (Xanax) 1 mg PO DAILY [facility] PRN Reason: Protocol Aspirin (Ecotrin) 81 mg PO DAILY [facility] Atorvastatin Calcium (Lipitor) 80 mg PO HS [facility] Last Admin: 08/30/17 21:40 Dose: 80 mg Budesonide (Pulmicort Respules) 0.5 mg IH [id number] [facility] Last Admin: 08/31/17 07:38 Dose: 0.5 mg Clopidogrel Bisulfate (Plavix) 75 mg PO DAILY [facility] Folic Acid (Folic Acid) 1 mg PO DAILY [facility] Levalbuterol HCl (Xopenex) 1.25 mg IH [id number] [facility] Last Admin: 08/31/17 07:38 Dose: 1.25 mg Montelukast Sodium (Singulair) 10 mg PO DAILY [facility] Non-Formulary Medication (Ascorbate Calcium [Vitamin C]) 500 mg PO DAILY [facility] Non-Formulary Medication (Calcium Carbonate/Vitamin D3 [Calcium 1,000 + D3 Caplet]) 1 each PO DAILY [facility] Non-Formulary Medication (Levocetirizine Dihydrochloride [Xyzal]) 5 mg PO DAILY [facility] Non-Formulary Medication (Multivit,Iron,Min 5/Folic Acid [Strovite Forte Caplet] ) 1 tab PO DAILY [facility] Oxycodone/Acetaminophen (Percocet 10/325 Mg Tab) tab PO PRN PRN PRN Reason: Pain, moderate (4-7) Pantoprazole Sodium (Protonix Ec Tab) 40 mg PO DAILY [facility] Polysaccharide Iron Complex (Ferrex-150) 150 mg PO DAILY [facility] Raloxifene HCl (Evista) 60 mg PO DAILY [facility] Tolterodine Tartrate (Detrol La) 4 mg PO DAILY [facility] Tramadol HCl (Ultram) 50 mg PO Q4H PRN PRN Reason: Pain, severe (8-10) Zolpidem Tartrate (Ambien) 5 mg PO HS PRN; Protocol PRN Reason: Insomnia Last Admin: 08/30/17 21:39 Dose: 5 mg - Constitutional Appears: Well, No Acute Distress - Head Exam Head Exam: ATRAUMATIC, NORMAL INSPECTION, NORMOCEPHALIC - Eye Exam Eye Exam: EOMI, Normal appearance - ENT Exam ENT Exam: Mucous Membranes Moist - Respiratory Exam Respiratory Exam: Clear to Ausculation Bilateral, NORMAL BREATHING PATTERN. absent: Rhonchi, Wheezes, Respiratory Distress - Cardiovascular Exam Cardiovascular Exam: REGULAR RHYTHM. absent: Tachycardia, Murmur - Neurological Exam Neurological Exam: Alert, Awake, CN II-XII Intact, Oriented x3 Neuro motor strength exam: Left Upper Extremity: 5, Right Upper Extremity: 5, Left Lower Extremity: 5, Right Lower Extremity: 5 - Skin Skin Exam: Dry, Intact, Normal Color, Warm Assessment and Plan - Assessment and Plan (Free Text) Assessment: 77-year-old female with PMH of HTN, COPD, cardiac stents, HLD, CAD, arthritis presents to the with left-sided rib pain status post fall and dizziness due to probable BPV with hypoxemia with underlying de conditioning. 1. possible Positional vertigo 2. hypoxemia with PNA 3. HTN - CT head no acute findings - orthostatic vitals mare normal - CTA of neck and head ordered for today - PT/OT - nasal cannula, continue breathing treatments - continue antibiotics treatment - monitor electrolytes, correct as needed case reviewed and discussed with attending <Prabhjot Dougherty - Last Filed: 08/31/17 18:03> Objective - Vital Signs/Intake and Output Vital Signs (last 24 hours): Temp Pulse Resp BP Pulse Ox 99.2 F 83 20 115/63 88 L 08/31/17 06:00 08/31/17 14:00 08/31/17 06:00 08/31/17 06:00 08/31/17 06:00 Intake and Output: 08/31/17 08/31/17 06:59 18:59 Intake Total 360 Balance 360 - Medications Medications: Current Medications Albuterol Sulfate (Albuterol 0.083% Inhal Petty (2.5 Mg/3 Ml) Ud) 2.5 mg IH TIDRESP PRN PRN Reason: Wheezing Alprazolam (Xanax) 1 mg PO DAILY [facility] PRN Reason: Protocol Last Admin: 08/31/17 09:22 Dose: 1 mg Aspirin (Ecotrin) 81 mg PO DAILY [facility] Last Admin: 08/31/17 09:23 Dose: 81 mg Atorvastatin Calcium (Lipitor) 80 mg PO HS [facility] Last Admin: 08/30/17 21:40 Dose: 80 mg Budesonide (Pulmicort Respules) 0.5 mg IH [id number] [facility] Last Admin: 08/31/17 07:38 Dose: 0.5 mg Clopidogrel Bisulfate (Plavix) 75 mg PO DAILY [facility] Last Admin: 08/31/17 09:23 Dose: 75 mg Folic Acid (Folic Acid) 1 mg PO DAILY [facility] Last Admin: 08/31/17 09:22 Dose: 1 mg Levalbuterol HCl (Xopenex) 1.25 mg IH [id number] [facility] Last Admin: 08/31/17 13:40 Dose: 1.25 mg Montelukast Sodium (Singulair) 10 mg PO DAILY [facility] Last Admin: 08/31/17 09:23 Dose: 10 mg Non-Formulary Medication (Ascorbate Calcium [Vitamin C]) 500 mg PO DAILY [facility] Last Admin: 08/31/17 09:31 Dose: Not Given Non-Formulary Medication (Calcium Carbonate/Vitamin D3 [Calcium 1,000 + D3 Caplet]) 1 each PO DAILY [facility] Last Admin: 08/31/17 09:31 Dose: Not Given Non-Formulary Medication (Levocetirizine Dihydrochloride [Xyzal]) 5 mg PO DAILY [facility] Last Admin: 08/31/17 09:31 Dose: Not Given Non-Formulary Medication (Multivit,Iron,Min 5/Folic Acid [Strovite Forte Caplet] ) 1 tab PO DAILY [facility] Last Admin: 08/31/17 09:31 Dose: Not Given Pantoprazole Sodium (Protonix Ec Tab) 40 mg PO DAILY [facility] Last Admin: 08/31/17 09:23 Dose: 40 mg Polysaccharide Iron Complex (Ferrex-150) 150 mg PO DAILY [facility] Last Admin: 08/31/17 09:23 Dose: 150 mg Raloxifene HCl (Evista) 60 mg PO DAILY [facility] Last Admin: 08/31/17 10:32 Dose: 60 mg Tolterodine Tartrate (Detrol La) 4 mg PO DAILY [facility] Last Admin: 08/31/17 10:31 Dose: 4 mg Tramadol HCl (Ultram) 50 mg PO Q4H PRN PRN Reason: Pain, severe (8-10) Last Admin: 08/31/17 10:32 Dose: 50 mg Zolpidem Tartrate (Ambien) 5 mg PO HS PRN; Protocol PRN Reason: Insomnia Last Admin: 08/30/17 21:39 Dose: 5 mg Assessment and Plan - Assessment and Plan (Free Text) Plan: 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 vascular consult. VINCENT STAFFORD Attending/Attestation - Attestation I have personally seen and examined this patient.: Yes I have fully participated in the care of the patient.: Yes I have reviewed all pertinent clinical information, including history, physical exam and plan: Yes
[2017-08-31] MEDS: Pantoprazole 40 mg EC Tab PO SCH (09:23)
[2017-08-31] MEDS: Iron Complex Polysacch 150mg Cap PO SCH (09:23)
[2017-08-31] MEDS: FOLIC ACID PO SCH (09:31)
[2017-08-31] MEDS: MULTIVIT IRON MIN PO SCH (09:31)
[2017-08-31] MEDS: VITAMIN D3 PO SCH (09:31)
[2017-08-31] MEDS: Non Formulary Medication (Levocetirizine Dihydrochloride [Xyzal] 5 MG) PO SCH (09:31)
[2017-08-31] MEDS: [UNRECOGNIZED DRUG - OTHER] PO SCH (09:31)
[2017-08-31] MEDS: ASCORBATE CALCIUM 500 MG PO SCH (09:31)
[2017-08-31] MEDS: CALCIUM CARBONATE PO SCH (09:31)
[2017-08-31] MEDS ORDERED: TOLTERODINE TARTRATE 4 MG PO SCH (10:00)
[2017-08-31] MEDS: Tolterodine 4 mg ER Cap PO SCH (10:31)
[2017-08-31] MEDS ORDERED: Iodixanol 320 MG/ML 100 ML BOTTLE IV ONE (14:27)
--- NOTE | 2017-08-31 15:46 | CT ---
PROCEDURE: CTA HEAD AND NECK WITH CONTRAST HISTORY: dizziness COMPARISON: None available. TECHNIQUE: Initial noncontrast head CT was performed. Subsequently, CT angiogram of the head and neck were performed after the intravenous administration of 80 mL of Omnipaque 350. Contiguous 1.5mm thick images were obtained in the axial plane of the neck. 2-D coronal and sagittal MPR images were obtained. Imaging postprocessing was performed with 3-D images also obtained. A delayed contrast head CT was also obtained. This CT exam was performed using one or more of the following dose reduction techniques: Automated exposure control, adjustment of the mA and/or kV according to patient size, and/or use of iterative reconstruction technique. Contrast dose: 100 mL Omnipaque 350 Radiation dose: Total exam DLP = 359.31 mGy-cm. FINDINGS: HEAD: Right: The intracranial internal carotid artery, and anterior and middle cerebral arteries are widely patent. Left: The intracranial internal carotid artery, and anterior and middle cerebral arteries are widely patent. Posterior circulation: The visualized intracranial vertebral arteries, basilar artery and posterior cerebral arteries are widely patent. There is origin of the left posterior cerebral artery, an anatomic variant. Ther is no endoluminal filling defect to suggest thrombus. There is no intracranial saccular aneurysm. NECK: There is a two vessel aortic arch with common origins of the innominate and left common carotid artery is. There is no significant stenosis at the origins of the great vessels at the level of the aortic arch. There are calcified and noncalcified atherosclerotic plaques at the origin of the vertebral arteries with mild stenosis. There is retropharyngeal course of bilateral internal carotid arteries, the left carotid artery is more tortuous than the right. Right Carotid: On the right, the common carotid, internal carotid and external carotid arteries are widely patent. There are advanced calcified atherosclerotic plaques in the carotid bulbs and proximal internal carotid artery with approximately 71% stenosis. There is no hemodynamically significant stenosis in the internal carotid arteries. Left Carotid: On the left, the common carotid, internal carotid and external carotid arteries are widely patent.There is no hemodynamically significant stenosis in the internal carotid arteries. There are advanced calcified atherosclerotic plaques in the proximal internal carotid artery and mild calcified plaques in the common carotid artery without luminal narrowing. The vertebral arteries are widely patent. The right vertebral artery is dominant, an anatomic variant. The visualized soft tissues of the neck are normal. The visualized brain and cervical spine are within normal limits. There is severe centrilobular emphysema in the visualized lungs. IMPRESSION: 1. Severe calcified atherosclerotic plaques in the right proximal internal carotid artery with hemodynamically significant stenosis. 2. No evidence of hemodynamically significant stenosis in the left internal carotid artery. 3. Patent bilateral vertebral arteries, the right vertebral artery is dominant an anatomic variant. 4. No evidence of occlusion, significant stenosis or definite narrowing in the intracranial arteries. origin of the left posterior cerebral artery, an anatomic variant.
--- NOTE | 2017-08-31 18:18 | CON ---
PULMONARY CONSULTATION DATE: 08/31/2017 REASON FOR CONSULTATION: Pleural effusion. REFERRING PHYSICIAN: Dr. Mccarthy. HISTORY OF PRESENT ILLNESS: The patient is a 77-year-old female, with past medical history significant for advanced chronic obstructive pulmonary disease, coronary artery disease, status post multiple cardiac stents, hypertension, hyperlipidemia, frequent falls at home, who presents to [facility] with left posterior rib pain - after falling at home. The patient states that she was walking with her walker, tripped and fell landing on her left side. When the pain progressively got worse, she sought additional evaluation in the emergency room. In the emergency room, she also complained of frequent dizziness. She was thus admitted for additional evaluation. The patient is not short of breath at rest. She does have chronic dyspnea on exertion - unchanged. She also has a chronic minimal cough with minimal sputum production - also unchanged. There is no history of chest pain, coughing up of blood, or chest pain - made worse with deep respirations. However, her left posterior back pain is certainly made worse with deep respirations or turning. There is no history of temperatures, chills, or infectious exposure. There is no history of night sweats, weight loss or appetite change prior to the above events. No history of leg or calf pains. No history of syncope or diaphoresis. No history of recent travel. REVIEW OF SYSTEMS: No history of nausea, vomiting, or diarrhea. No acute urinary symptoms. Rest of the review of systems is negative. ALLERGIES: TO CODEINE, DILAUDID, AND DEMEROL. SOCIAL HISTORY: Positive for tobacco usage. No alcohol. FAMILY HISTORY: No inheritable diseases. HOME MEDICATIONS: Include Crestor, folate, Plavix, vitamin C, Xanax, Evista, Protonix, Percocet, Singulair, and Xyzal. PHYSICAL EXAMINATION: GENERAL: The patient appears comfortable at rest. She is not short of breath. VITAL SIGNS: Last temperature recorded is 100.1, pulse 89, respirations 18/20, blood pressure 134/71. Oxygen saturation on nasal cannula is 88% to 95%. HEENT: Normocephalic, atraumatic. No JVD. CARDIOVASCULAR: Systolic ejection murmur at the lower left sternal border. No S3 gallop. LUNGS: Decreased breath sounds at the bases. Minimal bilateral rhonchi. No wheezing. EXTREMITIES: No clubbing, cyanosis or edema. Calves are nontender to palpation. GI: Abdomen is soft, nontender, and nondistended. Bowel sounds are positive. SKIN: No acute rash. NEUROLOGIC: Limited at the present time. PERTINENT LABORATORY DATA: Rib series was done yesterday and reviewed. There is a very small/minimal infiltrate noted at the right base, as well as a very small right pleural effusion. These findings were actually worse on previous films. CBC: White count 7.9, hemoglobin 12.1, hematocrit 38.0, platelets of 255. Complete metabolic profile: All values within normal limits. IMPRESSION: 1. Status post fall at home. 2. Recurrent dizziness. 3. Advanced chronic obstructive pulmonary disease. 4. Small right pleural effusion with small right basilar infiltrate. 5. Coronary artery disease. PLAN: The patient presents to [facility] after falling at home. Apparently, she fell a few nights ago. However, when she awoke yesterday, the pain in her left posterior back was more severe - prompting her to come to the emergency room. I did review the chest x-ray as above. The chest x-ray was done as part of a rib series. The current film shows a very small infiltrate and effusion at the right base. These findings were actually worse on previous films. I will order a stat procalcitonin level - to try and discern whether we are dealing with an acute pneumonia or not. There have been low-grade temperatures in the hospital. There is no leukocytosis. The patient was cultured and given antibiotic therapy in the emergency room. On physical exam, the patient is in mild bronchospasm. I will continue the current nebulizer treatments and add inhaled steroids. I did discuss the patient's pulse oximetry with her at length. She stated that the above readings are nothing unusual for her. Incentive spirometry is ordered. I will also have the patient out of bed as much as possible. Neurology evaluation is noted. Additional pulmonary intervention will be based on the clinical status of the patient as well as the above results. I will discuss the above with Dr. Mccarthy. Thank you very much for this pulmonary consultation. Kendrick Zimmerman MD [facility] # [id number] MTDD
[2017-08-31] MEDS: cefTRIAXone 1 gm 1 GM/100 ML BAG IVPB SCH (18:48)
--- NOTE | 2017-08-31 20:33 | CP.PCM.CON ---
History of Present Illness - History of Present Illness History of Present Illness: Surgery 77 F w pmh of COPD, former smoker, CAD, HLD came with weakness and dizziness. Pt reports that she fell dizzy and fell several times last few months. Denies F/ C/N/V/D/CP/SOb/LOC/vision changes/ facial drooping. Pt reports ribs pain from fall. CTA shows 70 % R ICA stenosis. Vascular surgery is consulted to evaluate for carotid stenosis of R ICA. PMH: COPD, HLD. CAD PSH: heart stents. orthopedic surgeries. Meds: ASA, Plavix SS: Former smoker. Review of Systems - Review of Systems Review of Systems: See HPI Past Patient History - Infectious Disease Hx of Infectious Diseases: None - Tetanus Immunizations Tetanus Immunization: Unknown - Past Social History Smoking Status: Former Smoker - CARDIAC Hx Cardiac Disorders: Yes Hx Hypercholesterolemia: Yes Hx Pacemaker: No - PULMONARY Hx Respiratory Disorders: Yes (SMOKED CIGARETTES H/O) Hx Chronic Obstructive Pulmonary Disease (COPD): Yes - NEUROLOGICAL Hx Neurological Disorder: Yes Other/Comment: paralysis 20 yrs ago post fall for 6-8 wks - HEENT Hx HEENT Problems: No - RENAL Hx Chronic Kidney Disease: Yes Hx Kidney Stones: Yes - ENDOCRINE/METABOLIC Hx Endocrine Disorders: No - HEMATOLOGICAL/ONCOLOGICAL Hx Blood Disorders: Yes Other/Comment: blood transfusions - INTEGUMENTARY Hx Dermatological Problems: No - MUSCULOSKELETAL/RHEUMATOLOGICAL Hx Musculoskeletal Disorders: Yes (L HIP ORIF,L4 L5 LAMINECTOMY,BACK SX,REX.KNEE ,L SHOULDER,RT ANKLE) Hx Falls: Yes (MULTIPLE FX,FALLS) Hx Unsteady Gait: Yes (WALKER) - GASTROINTESTINAL Hx Gastrointestinal Disorders: Yes Other/Comment: gi bleed - GENITOURINARY/GYNECOLOGICAL Hx Genitourinary Disorders: No - PSYCHIATRIC Hx Psychophysiologic Disorder: No Hx Emotional Abuse: No Hx Physical Abuse: No Hx Substance Use: No - SURGICAL HISTORY Hx Surgeries: Yes Other/Comment: right ankle pin, right knee fx with pin, carpal tunnel, right hip replacement, vertebrae replacement with 2 screws, 2 rods, 2 artificial verterbrae to cervical spine, and 2 in mid back, left knee. arthoscopic sx - ANESTHESIA Hx Anesthesia: Yes Hx Anesthesia Reactions: No Hx Malignant Hyperthermia: No Meds Allergies/Adverse Reactions: Allergies Allergy/AdvReac Type Severity Reaction Status Date / Time codeine Allergy ANAPHYLAXIS Verified 08/30/17 17:57 hydromorphone HCl Allergy ANAPHYLAXIS Verified 08/30/17 17:57 [From Dilaudid] meperidine HCl [From Demerol] Allergy ANAPHYLAXIS Verified 08/30/17 17:57 - Medications Medications: Current Medications Albuterol Sulfate (Albuterol 0.083% Inhal Petty (2.5 Mg/3 Ml) Ud) 2.5 mg IH TIDRESP PRN PRN Reason: Wheezing Alprazolam (Xanax) 1 mg PO DAILY [facility] PRN Reason: Protocol Last Admin: 08/31/17 09:22 Dose: 1 mg Aspirin (Ecotrin) 81 mg PO DAILY [facility] Last Admin: 08/31/17 09:23 Dose: 81 mg Atorvastatin Calcium (Lipitor) 80 mg PO HS [facility] Last Admin: 08/30/17 21:40 Dose: 80 mg Budesonide (Pulmicort Respules) 0.5 mg IH [id number] [facility] Last Admin: 08/31/17 19:43 Dose: 0.5 mg Clopidogrel Bisulfate (Plavix) 75 mg PO DAILY [facility] Last Admin: 08/31/17 09:23 Dose: 75 mg Folic Acid (Folic Acid) 1 mg PO DAILY [facility] Last Admin: 08/31/17 09:22 Dose: 1 mg Ceftriaxone Sodium (Rocephin 1 Gram Ivpb (D5w)) 1 gm in 100 mls @ 100 mls/hr IVPB DAILY [facility] PRN Reason: Protocol Last Admin: 08/31/17 18:48 Dose: 100 mls/hr Azithromycin (Zithromax 500mg In Ns) 500 mg in 250 mls @ 167 mls/hr IVPB DAILY [facility] PRN Reason: Protocol Levalbuterol HCl (Xopenex) 1.25 mg IH [id number] [facility] Last Admin: 08/31/17 19:43 Dose: 1.25 mg Montelukast Sodium (Singulair) 10 mg PO DAILY [facility] Last Admin: 08/31/17 09:23 Dose: 10 mg Non-Formulary Medication (Ascorbate Calcium [Vitamin C]) 500 mg PO DAILY [facility] Last Admin: 08/31/17 09:31 Dose: Not Given Non-Formulary Medication (Calcium Carbonate/Vitamin D3 [Calcium 1,000 + D3 Caplet]) 1 each PO DAILY [facility] Last Admin: 08/31/17 09:31 Dose: Not Given Non-Formulary Medication (Levocetirizine Dihydrochloride [Xyzal]) 5 mg PO DAILY [facility] Last Admin: 08/31/17 09:31 Dose: Not Given Non-Formulary Medication (Multivit,Iron,Min 5/Folic Acid [Strovite Forte Caplet] ) 1 tab PO DAILY [facility] Last Admin: 08/31/17 09:31 Dose: Not Given Pantoprazole Sodium (Protonix Ec Tab) 40 mg PO DAILY [facility] Last Admin: 08/31/17 09:23 Dose: 40 mg Polysaccharide Iron Complex (Ferrex-150) 150 mg PO DAILY [facility] Last Admin: 08/31/17 09:23 Dose: 150 mg Raloxifene HCl (Evista) 60 mg PO DAILY [facility] Last Admin: 08/31/17 10:32 Dose: 60 mg Tolterodine Tartrate (Detrol La) 4 mg PO DAILY [facility] Last Admin: 08/31/17 10:31 Dose: 4 mg Tramadol HCl (Ultram) 50 mg PO Q4H PRN PRN Reason: Pain, severe (8-10) Last Admin: 08/31/17 18:24 Dose: 50 mg Zolpidem Tartrate (Ambien) 5 mg PO HS PRN; Protocol PRN Reason: Insomnia Last Admin: 08/30/17 21:39 Dose: 5 mg Physical Exam - Constitutional Appears: No Acute Distress - Head Exam Head Exam: ATRAUMATIC, NORMAL INSPECTION, NORMOCEPHALIC - Eye Exam Eye Exam: EOMI, Normal appearance, PERRL Pupil Exam: NORMAL ACCOMODATION, PERRL - ENT Exam ENT Exam: Mucous Membranes Moist, Normal Exam - Neck Exam Neck exam: Positive for: Normal Inspection - Respiratory Exam Respiratory Exam: Clear to Auscultation Bilateral, NORMAL BREATHING PATTERN - Cardiovascular Exam Cardiovascular Exam: REGULAR RHYTHM - GI/Abdominal Exam GI & Abdominal Exam: Normal Bowel Sounds, Soft. absent: Tenderness - Extremities Exam Extremities exam: Positive for: full ROM, normal inspection - Back Exam Back exam: NORMAL INSPECTION - Neurological Exam Neurological exam: Alert, CN II-XII Intact, Normal Gait, Oriented x3, Reflexes Normal - Psychiatric Exam Psychiatric exam: Normal Affect, Normal Mood - Skin Skin Exam: Dry, Intact, Normal Color, Warm Results - Vital Signs Recent Vital Signs: Last Vital Signs Temp 98.2 F 08/31/17 16:00 Pulse 79 08/31/17 18:00 Resp 20 08/31/17 16:00 BP 105/61 08/31/17 16:00 Pulse Ox 91 L 08/31/17 16:00 - Labs Result Diagrams: 08/30/17 11:40 08/30/17 11:40 Labs: Laboratory Results - last 24 hr 08/31/17 07:20 Procalcitonin 0.05 L Assessment & Plan - Assessment and Plan (Free Text) Assessment: 70 % R ICA stenosis -Dr. Faustin to evalaute the pt -Possible OR next week for R carotid endarterectomy -Continue anticoagulation -Medical management -[employer] Consultant clearance -Neuro on board DW Dr. Faustin
[2017-08-31] MEDS: Azithromycin 500MG/NS 250ml 500 MG/250 ML BAG IVPB SCH (21:33)
[2017-09-01] MEDS: Levalbuterol 1.25 MG/3 ML Inhal Soln UD IH SCH ×5 (01:48→20:08)
--- NOTE | 2017-09-01 04:01 | PN ---
DATE: 08/31/2017 The patient was seen this morning in room 363, bed #2, lying in bed, comfortable. Admitted yesterday with multiple rib fractures from a recent fall at home as well as multiple other prior falls. She was seen by Neurology, his notes were appreciated, and scheduled for CTA of the carotid vessels in view of so many falls. She said her pain is relatively nicely controlled. We will follow chest x-ray as there was apparently a question of pneumonia in the emergency room, but there is no reported infiltrate. She is afebrile, and her white count is normal. would hold antibiotics for now , but could resume should there be any signs of infectious etiology or symptoms. Barak Mccarthy MD MTDD
[2017-09-01 06:32] LABS: HEMATOCRIT 32.4 % (36.0-48.0); MEAN CELL VOLUME 84.4 fl (80.0-105.0); MEAN CORPUSCULAR HEMOGLOBIN 26.6 pg (25.0-35.0); MEAN CORPUSCULAR HGB CONC 31.5 g/dl (31.0-37.0); MEAN PLATELET VOLUME 10.1 fl (7.0-11.0); RED CELL DISTRIBUTION WIDTH 15.5 % (11.5-14.5); WHITE BLOOD COUNT 7.4 10^3/ul (4.5-11.0)
[2017-09-01 06:57] LABS: ALB/GLOB RATIO 1.2 (1.1-1.8); ALKALINE PHOSPHATASE 58 U/L (38-126); ALT/SGPT 25 U/L (7-56); AST/SGOT 29 U/L (14-36); BILIRUBIN,TOTAL 0.5 mg/dL (0.2-1.3); BLOOD UREA NITROGEN 13 mg/dL (7-21); CARBON DIOXIDE 27 mmol/L (21-33); CHLORIDE 105 mmol/L (98-107); GFR AFRICAN-AMERICAN > 60; GLUCOSE,RANDOM 91 mg/dL (70-110); POTASSIUM 3.8 mmol/L (3.6-5.0); SODIUM 139 mmol/L (132-148); TOTAL PROTEIN 6.9 g/dL (5.8-8.3)
[2017-09-01] MEDS ORDERED: Albuterol-Ipratrop 3 mg / 0.5 (3 ml) UD IH PRN (08:05)
[2017-09-01] MEDS: Budesonide 0.5 mg/2 ml Inhal Susp UD IH SCH ×2 (08:24→20:07)
--- NOTE | 2017-09-01 09:53 | PN ---
DATE: PULMONARY PROGRESS NOTE SUBJECTIVE: The patient appears comfortable this morning. She is not short of breath at rest. OBJECTIVE: VITAL SIGNS: Temperature is 98.1, pulse is 86, respirations are 18, and blood pressure is 114/59. Oxygen saturation on nasal cannula is 94-96%. HEENT: Normocephalic, atraumatic. NECK: No JVD. CARDIOVASCULAR: Systolic ejection murmur at the lower left sternal border. No S3 gallop. LUNGS: Decreased breath sounds at the bases. Less rhonchi. No wheezing. EXTREMITIES: No clubbing, cyanosis or edema. Calves are nontender to palpation. GASTROINTESTINAL: Abdomen is soft, nontender, and nondistended. Bowel sounds are positive. SKIN: No acute rash. NEUROLOGIC: Limited at the present time. PERTINENT LABORATORY DATA: Chest x-ray was repeated yesterday and reviewed. There are minimal linear changes at the bases, most consistent with atelectasis; however, pneumonia cannot be ruled out. Procalcitonin done yesterday negative - 0.05. IMPRESSION: 1. Status post fall at home. 2. Recurrent dizziness. 3. Advanced chronic obstructive pulmonary disease. 4. Small right pleural effusion with probable bibasilar atelectasis. 5. Coronary artery disease. PLAN: The patient appears comfortable this morning. She is not short of breath at rest. She does state to feeling better overall. On physical exam, her bronchospasm is definitely less. In addition, the alveolar-arterial gradient is also less. Oxygen saturation on nasal cannula is now 94-96%. I will continue the current nebulizer treatments and inhaled steroids for now. I will also continue with the patient out of bed and using her incentive spirometer as much as possible. I did review the chest x-ray as above. The chest x-ray is more consistent with atelectasis at the bases than true infiltrates (pneumonia). I have also reviewed the laboratory data. There is a negative procalcitonin noted. The patient is on antibiotic therapy at the present time, and we can continue with the antibiotics for now. However, again, the negative procalcitonin makes acute pneumonia less likely. Inputs by Neurology and Surgery are noted. Clinical status of the patient is definitely improving. I will discuss the above with the attending physician. Kendrick Zimmerman MD [facility]
[2017-09-01] MEDS: Iron Complex Polysacch 150mg Cap PO SCH (10:29)
[2017-09-01] MEDS: Pantoprazole 40 mg EC Tab PO SCH (10:31)
[2017-09-01] MEDS: Tolterodine 4 mg ER Cap PO SCH (10:33)
[2017-09-01] MEDS: Azithromycin 500MG/NS 250ml 500 MG/250 ML BAG IVPB SCH (10:34)
[2017-09-01] MEDS: cefTRIAXone 1 gm 1 GM/100 ML BAG IVPB SCH (10:34)
[2017-09-01] MEDS: CALCIUM CARBONATE PO SCH (12:04)
[2017-09-01] MEDS: Non Formulary Medication (Levocetirizine Dihydrochloride [Xyzal] 5 MG) PO SCH (12:04)
[2017-09-01] MEDS: ASCORBATE CALCIUM 500 MG PO SCH (12:04)
[2017-09-01] MEDS: [UNRECOGNIZED DRUG - OTHER] PO SCH (12:04)
[2017-09-01] MEDS: VITAMIN D3 PO SCH (12:04)
[2017-09-01] MEDS: MULTIVIT IRON MIN PO SCH (12:05)
[2017-09-01] MEDS: FOLIC ACID PO SCH (12:05)
--- NOTE | 2017-09-01 12:44 | CON ---
REASON FOR THE CONSULTATION: Preop evaluation and risk stratification for possible carotid artery endarterectomy, history of coronary artery disease. BRIEF CLINICAL HISTORY: This is a 77-year-old female with a past medical history significant for coronary artery disease, status post multiple stents in LAD in 2010, a stent in circumflex, a stent in RCA. Recent stress test was normal dated 10/17/2016, admitted after a fall, mechanical in , but sustaining rib fracture. Prior to that, the patient has had multiple syncopal episodes and the patient had CTA of the neck was done that showed left carotid artery stenosis 70%, possible endarterectomy. So cardiac evaluation, cardiac consult was called. The patient denies any chest pain, denies any shortness of breath, denies any palpitation. PAST MEDICAL HISTORY: Significant for coronary artery disease status post multiple stents in the past, multiple PTCA, last PTCA was done in January 2012. History of premature coronary artery disease, hypertension, hyperlipidemia, history of GI bleed in the past, history of multiple endoscopy in the past. SOCIAL HISTORY: Denies smoking. Denies any history of alcohol abuse. RECENT CARDIAC WORKUP: As follows; the patient had a stress test done in 10/17/2016, that shows essentially normal myocardial perfusion study, filling defect, ejection fraction 71%. Last echo in the hospital 06/27/2014, that shows normal LV ejection fraction 65%, mild tricuspid regurgitation, RV systolic pressure of 37, trace to mild pulmonary insufficiency, trace to mild mitral regurgitation, trace to mild aortic regurgitation, moderate aortic valve thickened, no aortic stenosis noted at that time, 06/27/2014. CURRENT MEDICATIONS: The patient is taking at home, Detrol, Crestor, Evista, Protonix, clopidogrel, Plavix 75 mg daily, aspirin 81 mg daily, Xanax, and ascorbic acid. REVIEW OF SYSTEMS: As per HPI. PHYSICAL EXAMINATION VITAL SIGNS: Temperature afebrile, heart rate 84 and blood pressure 114/59. HEENT: PERRLA. Extraocular muscles intact. NECK: Supple. No carotid bruits or thyromegaly. CHEST: Clear to auscultation. HEART: S1 and S2 regular. ABDOMEN: Soft. EXTREMITIES: Clubbing and cyanosis negative. LABORATORY DATA: EKG shows normal sinus, no acute ST-T changes noted. Blood workup as follows; WBC 7.5, hemoglobin 10.2, hematocrit 32.4, platelet count 217. Chemistry shows sodium 113, potassium 3.0, chloride of 105, carbon dioxide 27, anion gap of 13, BUN 11, creatinine 0.7. IMPRESSION: Status post fall, mechanical fracture with history of dizziness before, history of carotid artery stenosis. CTA shows 70% stenosis of left carotid, may require a carotid artery endarterectomy. The patient had multiple stents in the past, but catheterization patent stent; last stress test dated 10/17/2016, preserved LV function, no ischemia, ejection fraction 71%. Last echo in [place] shows trace to mild aortic regurgitation, trace to mild mitral regurgitation, mild tricuspid regurgitation, RV systolic pressure of 37 mmHg, ejection fraction 65%, dated 06/27/2014. Also, this patient had an echo in Dr. Velasco's office. RECOMMENDATION: The risk and benefit ratio, if the benefits outweigh the risk for carotid endarterectomy, the patient undergoes surgery, no absolute contraindication. Last stress test, no evidence of ischemia, though history of multiple stents in the past, but no evidence of active ischemia, heart failure or arrhythmia, so no absolute contraindication for surgery. Though, the patient to be high-risk for any procedure because of underlying comorbidity. We will put low dose of beta damien for preoperative . We will get lipid profile, hemoglobin A1c, TSH and calcium mag phosphate level in the morning. We will follow with you. Thank you Dr. Mccarthy for providing me the opportunity in taking care of the patient, Olivia Cevallos. Adeola Deshpande MD
--- NOTE | 2017-09-01 13:35 | CP.PCM.PN ---
Subjective - Date & Time of Evaluation Date of Evaluation: 09/01/17 Time of Evaluation: 13:31 - Subjective Subjective: PGY1 Note for Dr. Faustin HPI: Patient seen and examined at bedside. Significant pain with breathing and coughing. No other complaints at this time. Currently not experiencing any blurry vision, weakness, numbness. Objective - Vital Signs/Intake and Output Vital Signs (last 24 hours): Temp Pulse Resp BP Pulse Ox 98.2 F 84 20 114/59 L 94 L 09/01/17 06:00 09/01/17 06:00 09/01/17 06:00 09/01/17 06:00 09/01/17 06:00 Intake and Output: 09/01/17 09/01/17 06:59 18:59 Intake Total 540 Balance 540 - Medications Medications: Current Medications Albuterol/Ipratropium (Duoneb 3 Mg/0.5 Mg (3 Ml) Ud) 3 ml IH Q2H PRN PRN Reason: Shortness of Breath Alprazolam (Xanax) 1 mg PO DAILY [facility] PRN Reason: Protocol Last Admin: 09/01/17 10:31 Dose: 1 mg Aspirin (Ecotrin) 81 mg PO DAILY [facility] Last Admin: 09/01/17 10:31 Dose: 81 mg Atorvastatin Calcium (Lipitor) 80 mg PO HS [facility] Last Admin: 08/31/17 21:32 Dose: 80 mg Azithromycin (Zithromax) 500 mg PO DAILY [facility] Budesonide (Pulmicort Respules) 0.5 mg IH [id number] [facility] Last Admin: 09/01/17 08:24 Dose: 0.5 mg Clopidogrel Bisulfate (Plavix) 75 mg PO DAILY [facility] Last Admin: 09/01/17 10:32 Dose: 75 mg Folic Acid (Folic Acid) 1 mg PO DAILY [facility] Last Admin: 09/01/17 10:29 Dose: 1 mg Ceftriaxone Sodium (Rocephin 1 Gram Ivpb (D5w)) 1 gm in 100 mls @ 100 mls/hr IVPB DAILY [facility] PRN Reason: Protocol Last Admin: 09/01/17 10:34 Dose: 100 mls/hr Levalbuterol HCl (Xopenex) 1.25 mg IH [id number] [facility] Last Admin: 09/01/17 13:08 Dose: 1.25 mg Metoprolol Tartrate (Lopressor) 12.5 mg PO BID [facility] Last Admin: 09/01/17 10:29 Dose: 12.5 mg Montelukast Sodium (Singulair) 10 mg PO DAILY [facility] Last Admin: 09/01/17 10:28 Dose: 10 mg Non-Formulary Medication (Ascorbate Calcium [Vitamin C]) 500 mg PO DAILY [facility] Last Admin: 09/01/17 12:04 Dose: Not Given Non-Formulary Medication (Calcium Carbonate/Vitamin D3 [Calcium 1,000 + D3 Caplet]) 1 each PO DAILY [facility] Last Admin: 09/01/17 12:04 Dose: Not Given Non-Formulary Medication (Levocetirizine Dihydrochloride [Xyzal]) 5 mg PO DAILY [facility] Last Admin: 09/01/17 12:04 Dose: Not Given Non-Formulary Medication (Multivit,Iron,Min 5/Folic Acid [Strovite Forte Caplet] ) 1 tab PO DAILY [facility] Last Admin: 09/01/17 12:05 Dose: Not Given Pantoprazole Sodium (Protonix Ec Tab) 40 mg PO DAILY [facility] Last Admin: 09/01/17 10:31 Dose: 40 mg Polysaccharide Iron Complex (Ferrex-150) 150 mg PO DAILY [facility] Last Admin: 09/01/17 10:29 Dose: 150 mg Raloxifene HCl (Evista) 60 mg PO DAILY [facility] Last Admin: 09/01/17 10:28 Dose: 60 mg Tolterodine Tartrate (Detrol La) 4 mg PO DAILY [facility] Last Admin: 09/01/17 10:33 Dose: 4 mg Tramadol HCl (Ultram) 50 mg PO Q4H PRN PRN Reason: Pain, severe (8-10) Last Admin: 09/01/17 10:32 Dose: 50 mg Zolpidem Tartrate (Ambien) 5 mg PO HS PRN; Protocol PRN Reason: Insomnia Last Admin: 08/31/17 21:32 Dose: 5 mg - Labs Labs: 09/01/17 05:30 09/01/17 05:30 - Constitutional Appears: Well, Non-toxic, No Acute Distress - Head Exam Head Exam: ATRAUMATIC, NORMAL INSPECTION, NORMOCEPHALIC - Eye Exam Eye Exam: EOMI Pupil Exam: NORMAL ACCOMODATION - ENT Exam ENT Exam: Mucous Membranes Moist - Respiratory Exam Respiratory Exam: Clear to Ausculation Bilateral, NORMAL BREATHING PATTERN - Cardiovascular Exam Cardiovascular Exam: REGULAR RHYTHM - GI/Abdominal Exam GI & Abdominal Exam: Soft, Normal Bowel Sounds. absent: Distended, Tenderness - Extremities Exam Extremities Exam: absent: Joint Swelling, Tenderness - Neurological Exam Neurological Exam: Alert, Awake, Oriented x3 Neuro motor strength exam: Left Upper Extremity: 5, Right Upper Extremity: 5, Left Lower Extremity: 5, Right Lower Extremity: 5 - Psychiatric Exam Psychiatric exam: Normal Affect, Normal Mood - Skin Skin Exam: Dry, Intact, Normal Color, Warm Assessment and Plan - Assessment and Plan (Free Text) Assessment: 77F w/ R. Carotid artery stenosis Plan: * OR Monday09/04/17 * Will Discuss with cardio and neurology * Further reccs per Dr. Roxie Burch PGY1
--- NOTE | 2017-09-01 17:46 | CP.PCM.PCO ---
Assessment & Plan - Assessment and Plan (Free Text) Assessment: NEURO COMMUNICATION NOTE: DIZZINESS SEEMS MORE OF VERTEBRO-BASILAR AND DECONDITIONED. WOULD RE-EVALUATE THE RIGHT CAROTID STENOSIS SINCE I FEEL THAT ITS STENOSIS IS LESS THAN 70% AND NOT SYMPTOMATIC CAUSING HER SYMPTOMS. WOULD POSSIBLY NEED A CEREBRAL ANGIO GRAM IN THE FUTURE. C/W [id number] AND PLAVIX 75 MG PO DAILY WITH STATIN FOR STOKE PREVENTION. PT/OT AND DA. THANKS LEONIDAS STAFFORD.
--- NOTE | 2017-09-01 17:54 | CP.PCM.PN ---
<Maren Tobin - Last Filed: 09/01/17 17:55> Subjective - Date & Time of Evaluation Date of Evaluation: 09/01/17 Time of Evaluation: 09:00 - Subjective Subjective: PGY-2 Neurology progress note for Dr. Dougherty's service Patient seen and examined at bedside. No acute distress. Patient is sleeping comfortably. Continues to report some dizziness. Objective - Vital Signs/Intake and Output Vital Signs (last 24 hours): Temp Pulse Resp BP Pulse Ox 98.4 F 86 20 128/63 90 L 09/01/17 16:00 09/01/17 16:00 09/01/17 16:00 09/01/17 16:00 09/01/17 16:00 Intake and Output: 09/01/17 09/01/17 06:59 18:59 Intake Total 540 Balance 540 - Medications Medications: Current Medications Albuterol/Ipratropium (Duoneb 3 Mg/0.5 Mg (3 Ml) Ud) 3 ml IH Q2H PRN PRN Reason: Shortness of Breath Alprazolam (Xanax) 1 mg PO DAILY [facility] PRN Reason: Protocol Last Admin: 09/01/17 10:31 Dose: 1 mg Aspirin (Ecotrin) 81 mg PO DAILY [facility] Last Admin: 09/01/17 10:31 Dose: 81 mg Atorvastatin Calcium (Lipitor) 80 mg PO HS [facility] Last Admin: 08/31/17 21:32 Dose: 80 mg Azithromycin (Zithromax) 500 mg PO DAILY [facility] Budesonide (Pulmicort Respules) 0.5 mg IH [id number] [facility] Last Admin: 09/01/17 08:24 Dose: 0.5 mg Clopidogrel Bisulfate (Plavix) 75 mg PO DAILY [facility] Last Admin: 09/01/17 10:32 Dose: 75 mg Folic Acid (Folic Acid) 1 mg PO DAILY [facility] Last Admin: 09/01/17 10:29 Dose: 1 mg Ceftriaxone Sodium (Rocephin 1 Gram Ivpb (D5w)) 1 gm in 100 mls @ 100 mls/hr IVPB DAILY [facility] PRN Reason: Protocol Last Admin: 09/01/17 10:34 Dose: 100 mls/hr Levalbuterol HCl (Xopenex) 1.25 mg IH [id number] [facility] Last Admin: 09/01/17 13:08 Dose: 1.25 mg Metoprolol Tartrate (Lopressor) 12.5 mg PO BID [facility] Last Admin: 09/01/17 10:29 Dose: 12.5 mg Montelukast Sodium (Singulair) 10 mg PO DAILY [facility] Last Admin: 09/01/17 10:28 Dose: 10 mg Non-Formulary Medication (Ascorbate Calcium [Vitamin C]) 500 mg PO DAILY [facility] Last Admin: 09/01/17 12:04 Dose: Not Given Non-Formulary Medication (Calcium Carbonate/Vitamin D3 [Calcium 1,000 + D3 Caplet]) 1 each PO DAILY [facility] Last Admin: 09/01/17 12:04 Dose: Not Given Non-Formulary Medication (Levocetirizine Dihydrochloride [Xyzal]) 5 mg PO DAILY [facility] Last Admin: 09/01/17 12:04 Dose: Not Given Non-Formulary Medication (Multivit,Iron,Min 5/Folic Acid [Strovite Forte Caplet] ) 1 tab PO DAILY [facility] Last Admin: 09/01/17 12:05 Dose: Not Given Pantoprazole Sodium (Protonix Ec Tab) 40 mg PO DAILY [facility] Last Admin: 09/01/17 10:31 Dose: 40 mg Polysaccharide Iron Complex (Ferrex-150) 150 mg PO DAILY [facility] Last Admin: 09/01/17 10:29 Dose: 150 mg Raloxifene HCl (Evista) 60 mg PO DAILY [facility] Last Admin: 09/01/17 10:28 Dose: 60 mg Tolterodine Tartrate (Detrol La) 4 mg PO DAILY [facility] Last Admin: 09/01/17 10:33 Dose: 4 mg Tramadol HCl (Ultram) 50 mg PO Q4H PRN PRN Reason: Pain, severe (8-10) Last Admin: 09/01/17 16:17 Dose: 50 mg Zolpidem Tartrate (Ambien) 5 mg PO HS PRN; Protocol PRN Reason: Insomnia Last Admin: 08/31/17 21:32 Dose: 5 mg - Labs Labs: 09/01/17 05:30 09/01/17 05:30 - Constitutional Appears: Well, No Acute Distress - Head Exam Head Exam: ATRAUMATIC, NORMAL INSPECTION, NORMOCEPHALIC - Eye Exam Eye Exam: Normal appearance - ENT Exam ENT Exam: Mucous Membranes Moist - Respiratory Exam Respiratory Exam: NORMAL BREATHING PATTERN. 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 1. vertigo 2. hypoxemia with PNA 3. HTN - CT head no acute findings - orthostatic vitals mare normal - CTA of neck and head showed 70 % stenosis of right ICA - would reevaluate right carotid stenosis, appears to be less then 70% - continue medical management - continue asa and plavix - continue Lipitor for stroke prevention - PT/OT - nasal cannula, continue breathing treatments - continue antibiotics treatment - monitor electrolytes, correct as needed - consider possible DA case reviewed and discussed with attending <Prabhjot Dougherty - Last Filed: 09/01/17 23:31> Objective - Vital Signs/Intake and Output Vital Signs (last 24 hours): Temp Pulse Resp BP Pulse Ox 98.4 F 72 20 128/63 90 L 09/01/17 16:00 09/01/17 22:00 09/01/17 16:00 09/01/17 16:00 09/01/17 16:00 Intake and Output: 09/01/17 09/02/17 18:59 06:59 Intake Total 240 Balance 240 - Medications Medications: Current Medications Albuterol/Ipratropium (Duoneb 3 Mg/0.5 Mg (3 Ml) Ud) 3 ml IH Q2H PRN PRN Reason: Shortness of Breath Alprazolam (Xanax) 1 mg PO DAILY [facility] PRN Reason: Protocol Last Admin: 09/01/17 10:31 Dose: 1 mg Aspirin (Ecotrin) 81 mg PO DAILY [facility] Last Admin: 09/01/17 10:31 Dose: 81 mg Atorvastatin Calcium (Lipitor) 80 mg PO HS [facility] Last Admin: 09/01/17 21:36 Dose: 80 mg Azithromycin (Zithromax) 500 mg PO DAILY [facility] Budesonide (Pulmicort Respules) 0.5 mg IH [id number] [facility] Last Admin: 09/01/17 20:07 Dose: 0.5 mg Clopidogrel Bisulfate (Plavix) 75 mg PO DAILY [facility] Last Admin: 09/01/17 10:32 Dose: 75 mg Folic Acid (Folic Acid) 1 mg PO DAILY [facility] Last Admin: 09/01/17 10:29 Dose: 1 mg Ceftriaxone Sodium (Rocephin 1 Gram Ivpb (D5w)) 1 gm in 100 mls @ 100 mls/hr IVPB DAILY [facility] PRN Reason: Protocol Last Admin: 09/01/17 10:34 Dose: 100 mls/hr Levalbuterol HCl (Xopenex) 1.25 mg IH [id number] [facility] Last Admin: 09/01/17 20:08 Dose: 1.25 mg Metoprolol Tartrate (Lopressor) 12.5 mg PO BID [facility] Last Admin: 09/01/17 17:57 Dose: 12.5 mg Montelukast Sodium (Singulair) 10 mg PO DAILY [facility] Last Admin: 09/01/17 10:28 Dose: 10 mg Non-Formulary Medication (Ascorbate Calcium [Vitamin C]) 500 mg PO DAILY [facility] Last Admin: 09/01/17 12:04 Dose: Not Given Non-Formulary Medication (Calcium Carbonate/Vitamin D3 [Calcium 1,000 + D3 Caplet]) 1 each PO DAILY [facility] Last Admin: 09/01/17 12:04 Dose: Not Given Non-Formulary Medication (Levocetirizine Dihydrochloride [Xyzal]) 5 mg PO DAILY [facility] Last Admin: 09/01/17 12:04 Dose: Not Given Non-Formulary Medication (Multivit,Iron,Min 5/Folic Acid [Strovite Forte Caplet] ) 1 tab PO DAILY [facility] Last Admin: 09/01/17 12:05 Dose: Not Given Pantoprazole Sodium (Protonix Ec Tab) 40 mg PO DAILY [facility] Last Admin: 09/01/17 10:31 Dose: 40 mg Polysaccharide Iron Complex (Ferrex-150) 150 mg PO DAILY [facility] Last Admin: 09/01/17 10:29 Dose: 150 mg Promethazine HCl/Dextromethorphan (Phenergan Dm Syrup) 5 ml PO Q6H PRN PRN Reason: Cough Raloxifene HCl (Evista) 60 mg PO DAILY [facility] Last Admin: 09/01/17 10:28 Dose: 60 mg Tolterodine Tartrate (Detrol La) 4 mg PO 1999 [facility] Last Admin: 09/01/17 21:36 Dose: 4 mg Tramadol HCl (Ultram) 50 mg PO Q4H PRN PRN Reason: Pain, severe (8-10) Last Admin: 09/01/17 21:39 Dose: 50 mg Zolpidem Tartrate (Ambien) 5 mg PO HS PRN; Protocol PRN Reason: Insomnia Last Admin: 08/31/17 21:32 Dose: 5 mg - Labs Labs: 09/01/17 05:30 09/01/17 05:30 Attending/Attestation - Attestation I have personally seen and examined this patient.: Yes I have fully participated in the care of the patient.: Yes I have reviewed all pertinent clinical information, including history, physical exam and plan: Yes
[2017-09-01] MEDS ORDERED: Promethazine/Cod 6.25mg-10mg/5ml Syr UD PO PRN (18:46)
[2017-09-01] MEDS ORDERED: Promethazine DM 6.25 mg-15 mg/5 ml Syrup PO PRN (19:09)
[2017-09-01] MEDS ORDERED: Tolterodine 4 mg ER Cap PO SCH (20:00)
[2017-09-02] MEDS: Levalbuterol 1.25 MG/3 ML Inhal Soln UD IH SCH ×2 (02:21→07:31)
[2017-09-02] MEDS: Budesonide 0.5 mg/2 ml Inhal Susp UD IH SCH (07:31)
[2017-09-02 07:39] LABS: BASO # 0.03 K/mm3 (0.0-2.0); BASO % 0.4 % (0.0-3.0); EOS # 0.4 (0.0-0.7); EOS % 4.3 % (1.5-5.0); GRAN # 6.08 (1.4-6.5); GRAN % 73.3 % (50.0-68.0); HEMATOCRIT 33.8 % (36.0-48.0); LYMPH # 1.3 (1.2-3.4); LYMPH % 15.9 % (22.0-35.0); MEAN CELL VOLUME 84.9 fl (80.0-105.0); MEAN CORPUSCULAR HEMOGLOBIN 26.4 pg (25.0-35.0); MEAN CORPUSCULAR HGB CONC 31.1 g/dl (31.0-37.0); MEAN PLATELET VOLUME 10.5 fl (7.0-11.0); MONO # 0.5 (0.1-0.6); MONO % 6.1 % (1.0-6.0); RED CELL DISTRIBUTION WIDTH 15.5 % (11.5-14.5); WHITE BLOOD COUNT 8.3 10^3/ul (4.5-11.0)
[2017-09-02 08:01] VITALS: BP 108/62; RESP 24; TEMP 99.2; O2SAT 94
[2017-09-02 08:16] LABS: ALB/GLOB RATIO 1.3 (1.1-1.8); ALKALINE PHOSPHATASE 63 U/L (38-126); ALT/SGPT 24 U/L (7-56); AST/SGOT 32 U/L (14-36); BILIRUBIN,TOTAL 0.5 mg/dL (0.2-1.3); BLOOD UREA NITROGEN 16 mg/dL (7-21); CALCIUM 8.9 mg/dL (8.4-10.5); CARBON DIOXIDE 20 mmol/L (21-33); CHLORIDE 105 mmol/L (98-107); CHOLESTEROL 113 mg/dL (130-200); GFR AFRICAN-AMERICAN > 60; GLUCOSE,RANDOM 82 mg/dL (70-110); PHOSPHOROUS 3.6 mg/dL (2.5-4.5); POTASSIUM 3.9 mmol/L (3.6-5.0); SODIUM 138 mmol/L (132-148)
--- NOTE | 2017-09-02 08:47 | PN ---
DATE: 09/02/2017 PULMONARY PROGRESS NOTE SUBJECTIVE: The patient appears comfortable at rest. She is mildly short of breath, but in no acute distress. PHYSICAL EXAMINATION: VITAL SIGNS: Temperature is 99.2, pulse is 89, respirations are 20/22, and blood pressure is 108/62. Oxygen saturation on nasal cannula is 94%. HEENT: Normocephalic and atraumatic. NECK: No JVD. CARDIOVASCULAR: Systolic ejection murmur at the lower left sternal border. No S3, gallop. LUNGS: Decreased breath sounds at the bases. Minimal/less rhonchi. No wheezing. EXTREMITIES: No clubbing, cyanosis or edema. Calves are nontender to palpation. GASTROINTESTINAL: Abdomen is soft, nontender and nondistended. Bowel sounds are positive. SKIN: No acute rash. NEUROLOGIC: Exam is limited at the present time. IMPRESSION 1. Status post fall at home. 2. Recurrent dizziness. 3. Advanced chronic obstructive pulmonary disease. 4. Small right pleural effusion, with probable bibasilar atelectasis. 5. Coronary artery disease. PLAN: The patient appears comfortable this morning. She is mildly short of breath, but in no acute distress. She does state to feeling better overall. On physical exam, there is certainly less bronchospasm noted. In addition, the alveolar-arterial gradient is also less. I will continue the current nebulizer treatments and inhaled steroids for now. The patient is also reminded to use her spirometer and be out of bed as much as possible. I will continue with the current antibiotic therapy for now. Temperatures are resolving. There is no leukocytosis. Clinical status of the patient is certainly improved - compared to the initial presentation. However, the overall status/prognosis for this patient, with advanced chronic obstructive pulmonary disease, does remain guarded. I will discuss the above with the attending physician. Kendrick Zimmerman MD MTDD
[2017-09-02] MEDS: cefTRIAXone 1 gm 1 GM/100 ML BAG IVPB SCH (09:21)
[2017-09-02] MEDS: Iron Complex Polysacch 150mg Cap PO SCH (09:25)
[2017-09-02] MEDS: Pantoprazole 40 mg EC Tab PO SCH (09:25)
[2017-09-02] MEDS: ASCORBATE CALCIUM 500 MG PO SCH (09:26)
[2017-09-02] MEDS: VITAMIN D3 PO SCH (09:27)
[2017-09-02] MEDS: FOLIC ACID PO SCH (09:27)
[2017-09-02] MEDS: [UNRECOGNIZED DRUG - OTHER] PO SCH (09:27)
[2017-09-02] MEDS: CALCIUM CARBONATE PO SCH (09:27)
[2017-09-02] MEDS: Non Formulary Medication (Levocetirizine Dihydrochloride [Xyzal] 5 MG) PO SCH (09:27)
[2017-09-02] MEDS: MULTIVIT IRON MIN PO SCH (09:27)
[2017-09-02 11:09] VITALS: PULSE 84
--- NOTE | 2017-09-02 20:34 | PN ---
DATE: 09/02/2017 LOCATION: The patient is in room 363, bed 2. REASON FOR CONSULTATION AND FOLLOWUP: Coronary artery disease, history of coronary artery stent, mechanical fall, rib fractures, hypertension, hyperlipidemia and past history of GI bleeding, multiple endoscopy in the past. SUBJECTIVE: The patient is lying in bed complaining pain at the site of the rib fractures, otherwise the patient denies any angina type symptoms or palpitation. The patient's breathing is also stable. PHYSICAL EXAMINATION: VITAL SIGNS: Blood pressure 93/56, respirations 20, pulse 84, and temperature 97.3. HEENT: Head is normocephalic. Eyes: Pupils normal. Conjunctivae slightly pale. NECK: JVP low. Carotid equal. THORAX: AP diameter normal. LUNGS: No rales. CARDIOVASCULAR: S1 and S2. ABDOMEN: Soft and nontender. No organomegaly. Bowel sounds normal. EXTREMITIES: No clubbing. No cyanosis. LABORATORY DATA: WBC 8.3, hemoglobin 10.5, hematocrit 33.8 and platelets 245. Sodium 138, potassium 3.9, BUN 16 and creatinine 0.8. AST and ALT normal. Total protein, albumin normal. The patient's CTA of the neck, showed proximal internal carotid artery about 71% stenosis, there is no hemodynamically significant stenosis in the internal carotid artery. He has a right carotid, which showed 71% stenosis. DIAGNOSES: Status post mechanical fall, fracture of ribs, dizziness, CTA shows 70% stenosis of the left carotid, coronary artery disease, history of multiple stents in the past. Stress test on 04/16/2017 showed preserved left ventricular function, normal nuclear scan, ejection fraction of 71%. Echocardiogram at [facility] showed trace to mild aortic regurgitation, trace to mild mitral regurgitation, mild tricuspid regurgitation, right ventricular systolic pressure of 37 mmHg, left ventricular ejection fraction of 55%. This echocardiogram was done on 06/27/2014. The patient recently had outpatient echocardiogram at our office. PLAN: The patient is getting DuoNeb and nebulizer therapy, aspirin 81 mg daily, Evista 60 mg p.o. daily, iron polysaccharide 150 mg p.o. daily, folic acid 1 mg daily, atorvastatin 80 daily, levocetirizine dihydrochloride 5 mg p.o. daily, metoprolol 12.5 mg b.i.d., Plavix 75 mg daily. We will continue present therapy. We will follow. Adeola Velasco MD
--- NOTE | 2017-09-03 02:20 | PN ---
DATE: 09/01/2017 The patient was seen this Monday evening in room 363, bed 2. SUBJECTIVE: She sitting out of bed in the chair. Awake, alert, quite clear, comfortable, a little bit confused about some details of her hospital stay, but appropriate in response and present conversation. She denied hemoptysis or chest pains. She does report some continued rib fracture pains and cough associated with her rather severe COPD. There is no hemoptysis as per the patient. PHYSICAL EXAMINATION LUNGS: Showed markedly prolonged expiratory phase with advanced COPD. HEART: Regular, not tachycardic. EXTREMITIES: Showed no edema. After leaving the room, I spoke with the patient's nurse, who asked me to complete some paper work in preparation for her trip to the OR on Monday. Imagine my surprise when I heard she is scheduled in the OR for carotid enterectomy. This came as a surprise to me as her CTA was reportedly showing a 70% or less stenosis in the area that she would be asymptomatic. So this patient with multiple other comorbidities, I would not think this was a strong indications for her surgical intervention at this time. I went back into the room and asked the patient if anyone has spoke with her, which time she told me that is why she is little upset and concerned needing surgery and explained the cleaning off of calcified plaque in her neck. I tried to reassure her and told her that I would confer the consultants involved and give her an updated information tomorrow. I looked at the chart today as to how this all came today and what consultants were involved and we are trying to discuss with consultants I have called to be involved in the case and our best recommendation and plan for the patient. Barak Mccarthy MD [facility]
--- NOTE | 2017-09-03 15:15 | DS ---
HISTORY OF PRESENT ILLNESS: This is a 77-year-old woman with severe COPD, known to my practice for several years and known to me for her many hospitalizations at [facility] for COPD over the past several years. She had recently been experiencing series of falls dating back to several months. At times, she broke ribs, compression fractures, but most recently fell sustaining fractures to approximately 6 ribs. She was admitted to medical floor. Consultation was requested for her neurologist who knows her and has been working her up for what I believe to be vestibular syndrome with room spinning vertigo. MRA was done with approximately 70% stenosis of carotid artery. The patient was asymptomatic for syncope, weakness, slurred speech, etc. So, this was felt to be more of a coincidental finding. In the matter I am quite uncertain. The rest of surgery residents and team became involved with the case. The patient was told she may be a candidate for a surgery, which was scheduled for Monday causing some degree of confusion amongst the patient and the staff as well as myself as to the origin of this plan. However, with conversations today between myself and consulting neurologist Dr. Farhat Jr., our plans are confirmed. The patient was reassured and it was felt best to ready her for transfer to Transitional Care Unit today. That way, we can continue analgesics for her rib fracture, monitoring of underlying pulmonary disease. I will confirm the findings of the MRA with hospital radiologist. Her vascular consultation was canceled, and the patient was transferred to TCU. FINAL DISCHARGE DIAGNOSES: 1. Fall at home with multiple rib fractures. 2. History of vertigo being pursued as an outpatient by neurologist with a presumptive diagnosis of the vestibular syndrome. 3. Severe chronic obstructive pulmonary disease with chronic hypoxia. 4. Hyperlipidemia. 5. Coronary artery disease. 6. Osteoporosis. 7. Severe overactive bladder. 8. Gastroesophageal reflux disease, reflux esophagitis. 9. Anxiety. PLAN: The patient will go to Transitional Care Unit. We will follow up right there. Barak Mccarthy MD [facility]
== END 2017-09-02 12:50 | DRG 67 ==
LOC: ED 10:44 → ERH 14:51 → 3RNO 16:49
PROVIDERS: ADMIT Internal Medicine; ATTEND Internal Medicine
DX: I65.21 Occlusion and stenosis of right carotid artery (principal); J18.9 Pneumonia, unspecified organism; J90 Pleural effusion, not elsewhere classified; J44.0 Chronic obstructive pulmonary disease with (acute) lower respiratory infection; S22.49XA Multiple fractures of ribs, unspecified side, initial encounter for closed fracture; I08.3 Combined rheumatic disorders of mitral, aortic and tricuspid valves; J98.11 Atelectasis; W01.0XXA Fall on same level from slipping, tripping and stumbling without subsequent striking against object, initial encounter; R09.02 Hypoxemia; E78.5 Hyperlipidemia, unspecified; I25.10 Atherosclerotic heart disease of native coronary artery without angina pectoris; M81.0 Age-related osteoporosis without current pathological fracture; N32.81 Overactive bladder; K21.0 Gastro-esophageal reflux disease with esophagitis; F41.9 Anxiety disorder, unspecified; E78.00 Pure hypercholesterolemia, unspecified; I08.0 Rheumatic disorders of both mitral and aortic valves; Y92.009 Unspecified place in unspecified non-institutional (private) residence as the place of occurrence of the external cause; Y93.01 Activity, walking, marching and hiking; R29.6 Repeated falls; Z79.02 Long term (current) use of antithrombotics/antiplatelets; Z79.82 Long term (current) use of aspirin; Z79.899 Other long term (current) drug therapy; Z87.442 Personal history of urinary calculi; F17.200 Nicotine dependence, unspecified, uncomplicated; Z95.5 Presence of coronary angioplasty implant and graft; Z96.641 Presence of right artificial hip joint; Z88.5 Allergy status to narcotic agent; Z87.892 Personal history of anaphylaxis; R40.2412 Glasgow coma scale score 13-15, at arrival to emergency department

== ENCOUNTER 2017-09-02 12:50 | Inpatient (IN) | payer OTHER ==
[2017-09-02] MEDS ORDERED: Albuterol-Ipratrop 3 mg / 0.5 (3 ml) UD IH PRN (13:46)
[2017-09-02] MEDS: Levalbuterol 1.25 MG/3 ML Inhal Soln UD IH SCH ×2 (14:19→20:00)
[2017-09-02 15:30] VITALS: RESP 20
[2017-09-02] MEDS ORDERED: Pneumococcal 23-Valent Vaccine IM ONE (15:31)
[2017-09-02] MEDS ORDERED: Influenza Vaccine 60 mcg/0.5 mL SYR (4YR UP) IM ONE (15:31)
[2017-09-02] MEDS: Arformoterol 15 mcg/2 ml Inh Sol IH SCH (19:49)
[2017-09-02] MEDS: Budesonide 0.5 mg/2 ml Inhal Susp UD IH SCH (20:00)
--- NOTE | 2017-09-02 20:01 | CON ---
DATE: 09/02/2017 NEUROLOGY CONSULTATION CHIEF COMPLAINT: Dizziness, history of fall. HISTORY OF PRESENT ILLNESS: This is a 77-year-old woman who is well known to me from my prior practice with past medical history of hypertension, COPD, cardiac stents, hyperlipidemia, CAD, arthritis, vertigo, positional type who presented to the hospital with left-sided rib pain, found to have left-sided rib fractures and status post fall and dizziness, and has lightheadedness and mild spinning sensation of the room. She underwent a CT scan of the head which showed no acute intracranial abnormalities. CTA of the head and neck shows some patent bilateral vertebral arteries. The right vertebral artery is dominant and . There are some atherosclerotic plaque in bilateral carotids, more in the right, but less than 60% according to my read. She is currently TCU for deconditioning and balancing exercise for gait and dizziness. She recently was treated with pneumonia, had some hypoxemia when she came into the hospital, which has eventually stabilized and had some vertiginous symptoms as well, which has stabilized as well. She is currently in [facility] for rehabilitation. PAST MEDICAL HISTORY: History of hypertension, COPD, cardiac stent, hyperlipidemia, coronary artery disease, arthritis, vertigo, and multiple falls. FAMILY HISTORY: Noncontributory. SOCIAL HISTORY: No illicit drug use, smoking, or EtOH abuse. REVIEW OF SYSTEMS: A 14-point review of systems is negative except as per the HPI. ALLERGIES: KENDALL, CODEINE, HYDROMORPHONE, AND MEPERIDINE. PHYSICAL EXAMINATION: VITAL SIGNS: Temperature 99.2, pulse rate of 89, blood pressure of 108/62, respiratory rate of 20, oxygen saturation 95% on room air. GENERAL: The patient is sitting up in bed, in no acute distress. HEENT: Head is atraumatic and normocephalic. PERRLA. Extraocular muscles are intact. NECK: Supple. No JVD. No adenopathy noted. LUNGS: Clear to auscultation. No adventitious sounds. HEART: S1 and S2. Normal rate and rhythm. No murmurs, rubs or gallops. ABDOMEN: Soft, nontender and nondistended. Bowel sounds are present. EXTREMITIES: No clubbing. No cyanosis. Peripheral pulses are 2+ bilaterally. NEUROLOGIC: The patient is alert and oriented to person, place, month and year. Speech is fluent without any errors. Cranial nerves II through XII are intact. Motor exam: Moves all extremities equally. Toes downgoing bilaterally. Sensory exam: Light touch, pinprick, proprioception, and vibration intact. DTRs are 2+ throughout and 1 at the knees and ankles. Coordination: [id number] intact. Gait is deferred for now. LABORATORY DATA: Sodium is 138, potassium 3.9, chloride 105, carbon dioxide 20, BUN of 16, creatinine of 0.8, random glucose of 82. ASSESSMENT AND PLAN: This is a 77-year-old woman with history of positional vertigo, hypertension, chronic obstructive pulmonary disease, cardiac stents, hyperlipidemia, coronary artery disease, arthritis, multiple falls, recently recovered pneumonia, who came in for status post fall, left-sided rib pain, and dizziness. Based on her CT/angio of the head and neck, I felt like dizziness is likely secondary to underlying vertebrobasilar insufficiency with underlying decondition state in conjunction with her underlying positional vertigo. I did not feel that her right carotid artery stenosis is not causing any of her symptoms and it is definitely less than 60%. She does not need an endarterectomy at this time according to my evaluation. We will definitely discontinue her OR for any CEA. She is currently in [facility] for decondition state and rehabilitation. We recommend: 1. To continue with aspirin 81, Plavix 75, and Lipitor for stroke prevention. 2. Continue underlying antibiotics for pneumonia. 3. Avoid systolic drops in her blood pressure. 4. Continue with PT/OT and occupational therapy for decondition state. 5. Monitor electrolytes and correct accordingly. Once again, thank you for this consult. Prabhjot Dougherty MD
--- NOTE | 2017-09-02 21:34 | CP.PCM.PN ---
Subjective - Date & Time of Evaluation Date of Evaluation: 09/02/17 Time of Evaluation: 07:00 - Subjective Subjective: VASCULAR SURGERY PROGRESS NOTE FOR DR. OSORIO Patient seen and examined at bedside with Dr. Osorio. She reports pain in her back and side from her previous rib fractures. She is SOB (about to get breathing tx) and coughing. She denies weakness or dizziness. She reports that when she gets dizzy and falls, she never loses consciousness. Never has sx of amaurosis fugax. Never had weakness in one particular extremity. Occasionally drops things but from both hands. Objective - Vital Signs/Intake and Output Vital Signs (last 24 hours): Temp Pulse Resp BP Pulse Ox 97.3 F L 88 20 103/63 09/02/17 15:05 09/02/17 18:22 09/02/17 15:05 09/02/17 18:22 - Medications Medications: Current Medications Albuterol/Ipratropium (Duoneb 3 Mg/0.5 Mg (3 Ml) Ud) 3 ml IH Q2H PRN; Protocol PRN Reason: Shortness of Breath Alprazolam (Xanax) 0.5 mg PO Q6 PRN; Protocol PRN Reason: Anxiety Arformoterol Tartrate (Brovana) 15 mcg IH [id number] LAMAR Ascorbic Acid (Vitamin C 500 Mg Tab) 500 mg PO DAILY LAMAR Aspirin (Ecotrin) 81 mg PO DAILY LAMAR PRN Reason: Protocol Atorvastatin Calcium (Lipitor) 80 mg PO DIN LAMAR PRN Reason: Protocol Last Admin: 09/02/17 18:00 Dose: 80 mg Azithromycin (Zithromax) 500 mg PO DAILY LAMAR PRN Reason: Protocol Budesonide (Pulmicort Respules) 0.5 mg IH [id number] LAMAR PRN Reason: Protocol Calcium/Vitamin D (Oscal-D 250 Mg-125 Units Tab) 1 tab PO DAILY LAMAR Clopidogrel Bisulfate (Plavix) 75 mg PO DAILY LAMAR PRN Reason: Protocol Folic Acid (Folic Acid) 1 mg PO DAILY LAMAR PRN Reason: Protocol Ceftriaxone Sodium (Rocephin 1 Gram Ivpb (D5w)) 1 gm in 100 mls @ 100 mls/hr IVPB 0600 LAMAR PRN Reason: Protocol Levalbuterol HCl (Xopenex) 1.25 mg IH [id number] LAMAR PRN Reason: Protocol Last Admin: 09/02/17 14:19 Dose: 1.25 mg Metoprolol Tartrate (Lopressor) 12.5 mg PO BID [facility] PRN Reason: Protocol Last Admin: 09/02/17 18:22 Dose: 12.5 mg Montelukast Sodium (Singulair) 10 mg PO DAILY LAMAR PRN Reason: Protocol Levocetirizine Dihydrochloride [ Xyzal] 5 Mg) (Home Med) 5 mg PO DAILY [facility] Multivit,Iron,Min 5/Folic Acid [Strovite Forte Caplet] 1 tab PO DAILY [facility] Pantoprazole Sodium (Protonix Ec Tab) 40 mg PO 0600 [facility] PRN Reason: Protocol Polysaccharide Iron Complex (Ferrex-150) 150 mg PO DAILY LAMAR PRN Reason: Protocol Promethazine HCl/Dextromethorphan (Phenergan Dm Syrup) 5 ml PO Q6H PRN; Protocol PRN Reason: Cough Raloxifene HCl (Evista) 60 mg PO DAILY [facility] PRN Reason: Protocol Tolterodine Tartrate (Detrol La) 4 mg PO DAILY LAMAR Tramadol HCl (Ultram) 50 mg PO Q4H PRN; Protocol PRN Reason: Pain, severe (8-10) Zolpidem Tartrate (Ambien) 5 mg PO HS PRN; Protocol PRN Reason: Insomnia - Constitutional Appears: Non-toxic, No Acute Distress, Chronically Ill - Respiratory Exam Respiratory Exam: absent: Respiratory Distress - Cardiovascular Exam Cardiovascular Exam: +S1, +S2 - GI/Abdominal Exam GI & Abdominal Exam: Soft. absent: Tenderness - Neurological Exam Neurological Exam: Alert, Awake, CN II-XII Intact, Oriented x3 Neuro motor strength exam: Left Upper Extremity: 5, Right Upper Extremity: 5, Left Lower Extremity: 5, Right Lower Extremity: 5 - Psychiatric Exam Psychiatric exam: Normal Affect, Normal Mood - Skin Skin Exam: Dry, Normal Color, Warm Assessment and Plan - Assessment and Plan (Free Text) Assessment: 77yo F with right carotid artery stenosis - Per Neurologist Dr. Dougherty: dizziness is likely secondary to underlying vertebrobasilar insufficiency w/ underlying deconditioning state in conjunction w/ underlying positional vertigo. He does not feel that her right carotid artery stenosis is causing any of her symptoms. She does not need endarterectomy at this time. - Agree with Dr. Farhat, symptoms do not appear to be related to carotid stenosis. Since her stenosis is 60-70% and asymptomatic, carotid endarterectomy is not indicated at this time. - Recommend repeating US in 3-6 months to follow up carotid stenosis. - Discussed plan with Dr. Roxie Larkin PGY-3
[2017-09-03] MEDS: Levalbuterol 1.25 MG/3 ML Inhal Soln UD IH SCH ×4 (02:08→19:51)
[2017-09-03] MEDS: Promethazine DM 6.25 mg-15 mg/5 ml Syrup PO PRN (04:45)
[2017-09-03] MEDS: cefTRIAXone 1 gm 1 GM/100 ML BAG IVPB SCH (05:30)
[2017-09-03] MEDS: Pantoprazole 40 mg EC Tab PO SCH (05:31)
[2017-09-03] MEDS ORDERED: cefTRIAXone 1 gm 1 GM/100 ML BAG IVPB SCH (06:00)
[2017-09-03] MEDS ORDERED: Pantoprazole 40 mg EC Tab PO SCH (06:00)
[2017-09-03] MEDS: Arformoterol 15 mcg/2 ml Inh Sol IH SCH ×2 (07:28→20:00)
[2017-09-03] MEDS: Budesonide 0.5 mg/2 ml Inhal Susp UD IH SCH ×2 (07:28→19:51)
--- NOTE | 2017-09-03 08:20 | PN ---
DATE: 09/03/2017 PULMONARY NOTE SUBJECTIVE: The patient appears comfortable this morning. She is not short of breath at rest. PHYSICAL EXAMINATION: VITAL SIGNS: (Last noted in the computer): Temperature is 97.3, pulse 88, respirations 18/20, blood pressure 103/63. Oxygen saturation on nasal cannula is 94%. HEENT: Normocephalic, atraumatic. No JVD. CARDIOVASCULAR: Systolic ejection murmur at the lower left sternal border. No S3 gallop. LUNGS: Decreased breath sounds at the bases. Minimal/less rhonchi. No wheezing. EXTREMITIES: No clubbing, cyanosis or edema. Calves are nontender to palpation. GI: Abdomen is soft, nontender and nondistended. Bowel sounds are positive. SKIN: No acute rash. NEUROLOGIC: Exam limited a the present time. IMPRESSION: 1. Status post fall at home. 2. Recurrent dizziness. 3. Advanced chronic obstructive pulmonary disease. 4. Small right pleural effusion, with probable bibasilar atelectasis. 5. Coronary artery disease. PLAN: The patient appears comfortable this morning. She is not short of breath at rest. She does state to feeling much better overall. She is also experiencing much less rib pain. On physical exam, her bronchospasm is definitely less. I will continue the current nebulizer treatments and inhaled steroids for now. The patient also remains on antibiotic therapy. There are no temperatures noted. Clinical status of the patient is significantly improved - compared to the initial presentation. The patient is now on the Transitional Unit - where she will participate with physical therapy. She is also reminded to use her spirometer. I will discuss the above with the attending physician. Kendrick Zimmerman MD [facility]
[2017-09-03] MEDS ORDERED: FOLIC ACID PO SCH (10:00)
[2017-09-03] MEDS ORDERED: Tolterodine 4 mg ER Cap PO SCH (10:00)
[2017-09-03] MEDS ORDERED: LEVOCETIRIZINE DIHYDROCHLORIDE 5 MG PO SCH (10:00)
[2017-09-03] MEDS ORDERED: MULTIVIT IRON MIN PO SCH (10:00)
[2017-09-03] MEDS: Calcium-Vit D 250 mg-125 Units Tab UD PO SCH (10:24)
[2017-09-03] MEDS: Iron Complex Polysacch 150mg Cap PO SCH (10:24)
[2017-09-03] MEDS ORDERED: TOLTERODINE TARTRATE 4 MG PO SCH (20:00)
--- NOTE | 2017-09-03 23:44 | PN ---
DATE: 09/03/2017 SUBJECTIVE: The patient was seen this Monday, late morning, having been transferred out of the Transitional Care Unit yesterday afternoon. Today is much better day for the patient. She is more relaxed, less stressed, or unsettled. She is releived that she is not scheduled for carotid endarterectomy and surgery is not necessary after she was unfortunately told that this was needed and scheduled. She is more calm. She is quite pleasant and conversation was delightful today. I reviewed her case with her completely mainly from the chronic vertigo symptoms to her findings on CTA. Of interesting note the patient states that since she is here in the hospital, she has had no further episodes of vertigo. She has had no further room spinning dizziness. She has not taken any Antivert and wonders if the Antivert could have actually making her feel dizzy. At this point in time, I am going to try most anything with her including staying off the Antivert. We will still check orthostatic blood pressures and engage in Physical Therapy, incentive spirometry, and treatment for her rib fractures, she has analgesics available, and I will see how she does over the next few days. She, as well as I, anticipate discharge home sooner than the maximum allowable 8 days of the Transitional Care Unit depending on how she is doing. Barak Mccarthy MD [facility]
[2017-09-04] MEDS: Promethazine DM 6.25 mg-15 mg/5 ml Syrup PO PRN ×2 (00:20→09:50)
[2017-09-04] MEDS: Levalbuterol 1.25 MG/3 ML Inhal Soln UD IH SCH ×2 (01:09→07:24)
--- NOTE | 2017-09-04 05:37 | CON ---
DATE: 09/03/2017 REASON FOR CONSULTATION: Coronary artery disease status post fall, rib fractures, COPD, and deconditioning. HISTORY OF PRESENT ILLNESS: The patient is a 77-year-old female who is known to have coronary artery disease status post multiple stents, last stent was put in LAD in 2010, also a stent in circumflex and RCA. Recent stress test on 10/17/2016 was negative with ejection fraction of 71%. The patient was admitted to medical floor with a mechanical fall with dizziness and found to have rib fractures at 7, 8, and 10. The patient's CTA on 08/31/2017 also showed right internal carotid artery 71% stenosis. The patient complained of chest pain at the area of the rib fractures. Otherwise, she does not have any anginal symptoms. The patient had advanced chronic obstructive pulmonary disease. PAST MEDICAL HISTORY: Positive for coronary artery disease status post multiple stents in the past. The patient had a stent put in 2010 and last stent was put in January 2012, history of hypertension, hyperlipidemia, arthritis, vertigo, history of GI bleeding, history of multiple endoscopies in the past, history of advanced chronic obstructive pulmonary disease. PERSONAL HISTORY: Denied smoking. Denied alcohol abuse. ALLERGIES: THE PATIENT IS ALLERGIC TO CODEINE, HYDROMORPHONE, AND MEPERIDINE. RECENT CARDIAC WORKUP: The patient had a stress test on 10/17/2016 which was normal with LV ejection fraction of 70%. Last echo in the hospital was done on 06/27/2014 that showed LV ejection fraction of 65%, mild tricuspid regurgitation, RV systolic pressure of 37 mmHg, trace to mild pulmonary insufficiency, trace to mild mitral regurgitation, trace to mild aortic regurgitation. Aortic valve was thickened, but no aortic stenosis noted at that time. HOME MEDICATION: Included Detrol, Crestor, Evista, Protonix, Plavix, aspirin, Xanax, and ascorbic acid. REVIEW OF SYSTEMS: All the system reviewed and positive mentioned in the history, others were negative. PHYSICAL EXAMINATION: VITAL SIGNS: Blood pressure 90/48, respirations 20, pulse 78, temperature 97.3. HEENT: Head is normocephalic.. EYES: Pupils normal. Conjunctivae slightly pale. NECK: JVP low. Carotids equal. THORAX: AP diameter slightly increased. LUNGS: Few rhonchi. CARDIOVASCULAR: S1 and S2. ABDOMEN: Soft. No tenderness. CHEST WALL: The patient had tenderness on the area of the rib fractures. LABORATORY DATA: On the medical floor, labs showed WBC 7.5, hemoglobin 10.2, hematocrit 32.4, platelets 217. Sodium 138, potassium 4.7, BUN 14, creatinine 0.7, calcium 10.3. AST and ALT normal. Total protein and bilirubin normal. EKG showed normal sinus rhythm. Chest x-ray showed some bibasilar atelectasis. DIAGNOSES: Status post fall and status post rib fractures, advanced chronic obstructive pulmonary disease, vertigo, arthritis, hyperlipidemia, hypertension, history of gastrointestinal bleed in the past, history of multiple endoscopies, coronary artery disease, multiple percutaneous transluminal coronary angioplasty and stent insertion, right internal carotid approximately 70% stenosis, and anemia. PLAN: The patient recently had echo in our office as well. Continue DuoNeb and nebulizer therapy, aspirin 81 mg daily, Evista 60 mg p.o. daily, iron polysaccharide 150 mg p.o. daily, folic acid 1 mg daily, Lipitor 40 daily, metoprolol tartrate 12.5 b.i.d., Plavix 75 daily, Protonix 40 daily, ceftriaxone 1 g daily, Singulair 10 mg daily, azithromycin 500 mg p.o. daily. Clinically cardiac status stable. The patient can go for physical therapy for deconditioning and we will follow with you. Adeola Velasco MD
[2017-09-04] MEDS: cefTRIAXone 1 gm 1 GM/100 ML BAG IVPB SCH (05:48)
[2017-09-04] MEDS: Pantoprazole 40 mg EC Tab PO SCH (05:50)
[2017-09-04 06:10] VITALS: BP 125/77; TEMP 97.9
[2017-09-04] MEDS: Budesonide 0.5 mg/2 ml Inhal Susp UD IH SCH (07:24)
[2017-09-04] MEDS: Arformoterol 15 mcg/2 ml Inh Sol IH SCH (07:24)
--- NOTE | 2017-09-04 07:37 | PN ---
DATE: 09/04/2017 PULMONARY NOTE SUBJECTIVE: The patient appears comfortable this morning. She is not short of breath at rest. She also has much less rib pain. PHYSICAL EXAMINATION: VITAL SIGNS: Temperature is 97.9, pulse 67, respirations 18/20, blood pressure 125/77. Oxygen saturation on nasal cannula is 97%. HEENT: Normocephalic, atraumatic. NECK: No JVD. CARDIOVASCULAR: Systolic ejection murmur at the lower left sternal border. No S3 gallop. LUNGS: Better breath sounds at the bases. Very minimal/less rhonchi. No wheezing. EXTREMITIES: No clubbing, cyanosis or edema. Calves are nontender to palpation. GI: Abdomen is soft, nontender and nondistended. Bowel sounds are positive. SKIN: No acute rash. NEUROLOGIC: Exam limited at the present time. IMPRESSION: 1. Status post fall at home. 2. Recurrent dizziness. 3. Advanced chronic obstructive pulmonary disease. 4. Small right pleural effusion, with probable bibasilar atelectasis. 5. Coronary artery disease. PLAN: The patient appears comfortable this morning. She is not short of breath at rest. She has much less rib pain. She does state to feeling much, much better overall. On physical exam, her bronchospasm continues to slowly resolve. In addition, the alveolar arterial gradient also continues to resolve. Oxygen saturation on nasal cannula is now 97%. I will continue the current nebulizer treatments and inhaled steroids for now. The patient also remains on antibiotic therapy. There are no temperatures noted. Inputs by Neurology and Cardiology are noted. Clinical status of the patient is significantly improved. The patient is advised to be out of bed as much as possible. I will discuss the above with Dr. Mccarthy. Kendrick Zimmerman MD [facility]
[2017-09-04] MEDS: Calcium-Vit D 250 mg-125 Units Tab UD PO SCH (09:45)
[2017-09-04] MEDS: Iron Complex Polysacch 150mg Cap PO SCH (09:45)
[2017-09-04 11:40] VITALS: PULSE 79; O2SAT 94
[2017-09-04] MEDS ORDERED: Albuterol 0.083% Inhal Sol (2.5 mg/3 mL) UD IH SCH (12:45)
--- NOTE | 2017-09-04 14:43 | PN ---
DATE: 09/04/2017 LOCATION: The patient in room 317, bed 1. REASON FOR CONSULTATION: Coronary artery disease, status post fall, rib fracture, COPD, deconditioning. SUBJECTIVE: The patient is complaining of pain in the rib fracture area. Otherwise, denies any anginal symptoms. Her shortness of breath also has been stable. Denies palpitation. The patient was admitted to the medical floor post mechanical fall and developed rib fracture. PHYSICAL EXAMINATION: VITAL SIGNS: Blood pressure 125/77, respirations 20, pulse 67, temperature 97.9. HEENT: Head is normocephalic. Eyes: Pupils normal. Conjunctivae normal. NECK: JVP low. Carotids equal. THORAX: AP diameter slightly increased. The patient has tenderness at area of rib fracture. LUNGS: No significant rales. CARDIOVASCULAR: S1 and S2. ABDOMEN: Soft. No tenderness. No organomegaly. EXTREMITIES: No clubbing. No cyanosis. LABORATORY DATA: Labs were done on medical floor and they were reported in our previous notes. RECENT CARDIAC WORKUP: Stress test on 10/17/2016 was normal with ejection fraction of 70%. Last echo in hospital was 06/27/2014, which showed ejection fraction 65%, mild tricuspid regurg, RV systolic pressure of 37 mmHg, [id number] pulmonary regurg, [id number] mitral regurg, [id number] aortic regurgitation. Aortic wall thickened but no aortic stenosis noted at that time. The patient also had a recent echo in our office. DIAGNOSES: Status post fall, status post rib fracture, advanced chronic obstructive pulmonary disease, vertigo, arthritis, hyperlipidemia, hypertension, history of gastrointestinal bleeding in the past, history of multiple endoscopies, coronary artery disease, multiple transluminal coronary angioplasties and stent insertions, right internal carotid approximately 70% stenosis, anemia. PLAN: Continue present therapy. Clinically, cardiac stress test stable. Continue physical therapy. We will follow with you. Adeola Velasco MD
[2017-09-04] MEDS ORDERED: Fluticasone Nasal 50 mcg/Spray NS SCH (22:00)
[2017-09-04] MEDS ORDERED: Non Formulary Medication (Rosuvastatin Calcium [Crestor] 20 MG) PO SCH (22:00)
== END 2017-09-04 12:54 | disposition home or self-care (01) | DRG 559 ==
LOC: TRCU 12:50
PROVIDERS: ADMIT Internal Medicine; ATTEND Internal Medicine
PROC: 3E0F7GC Introduction of Other Therapeutic Substance into Respiratory Tract, Via Natural or Artificial Opening (ICD-10-PCS; 2017-09-02)
PROC: F07Z9FZ Gait Training/Functional Ambulation Treatment using Assistive, Adaptive, Supportive or Protective Equipment (ICD-10-PCS; principal; 2017-09-03)
PROC: F08Z4FZ Home Management Treatment using Assistive, Adaptive, Supportive or Protective Equipment (ICD-10-PCS; 2017-09-04)
DX: S22.49XD Multiple fractures of ribs, unspecified side, subsequent encounter for fracture with routine healing (principal); J18.9 Pneumonia, unspecified organism; G45.0 Vertebro-basilar artery syndrome; J44.0 Chronic obstructive pulmonary disease with (acute) lower respiratory infection; Z79.2 Long term (current) use of antibiotics; D64.9 Anemia, unspecified; I65.21 Occlusion and stenosis of right carotid artery; I25.10 Atherosclerotic heart disease of native coronary artery without angina pectoris; I10 Essential (primary) hypertension; E78.5 Hyperlipidemia, unspecified; R29.6 Repeated falls; M19.90 Unspecified osteoarthritis, unspecified site; W19.XXXD Unspecified fall, subsequent encounter; Z95.5 Presence of coronary angioplasty implant and graft

== ENCOUNTER 2018-04-25 11:44 | Observation (INO) | payer MEDICARE, OTHER ==
[2018-04-25 11:44] VITALS: BMI 25.4
[2018-04-25] MEDS ORDERED: Albuterol-Ipratrop 3 mg / 0.5 (3 ml) UD IH STA (12:10)
--- NOTE | 2018-04-25 12:16 | ED PDOC ---
Arrival/HPI - General Historian: Patient - History of Present Illness Time/Duration: Prior to Arrival Symptom Onset: Sudden Symptom Course: Unchanged Quality: Aching, Tightness Severity Level: 7 Activities at Onset: Rest Context: Walking, Exertion <Ryan Ornelas - Last Filed: 04/25/18 13:42> <MaritzacarltonSuzie A - Last Filed: 04/25/18 15:13> - General Chief Complaint: Trauma Time Seen by Provider: 04/25/18 11:47 - History of Present Illness Narrative History of Present Illness (Text): 04/25/18 12:12 Patient is a 77 year old female with PMH of chronic bronchitis, CAD (s/p 7 stents and valve replacement), and multiple falls with fractures (s/p R hip arthroplasty, L hip fx repair, L rib fx's) who presents to ED after she fell after showering this morning and hit her right side on the bathtub two hours ago. She denies that she hit her head and denies ELIZALDE, blurred vision, or numbness /tingling in her extremities. She denies any pain in her hips. She admits to worsening dyspnea since the event that is worse with exertion. She also endorses chest tightness that is worse when she breaths in. She last used her albuterol inhaler earlier this morning. She denies fever, chills, nausea/ vomiting/diarrhea, or other arthralgias. (Ryan Ornelas) Past Medical History - Provider Review Nursing Documentation Reviewed: Yes - Travel History Have you recently traveled outside [place] w/in the past 3 mons?: No - Infectious Disease Hx of Infectious Diseases: None - Tetanus Immunization Tetanus Immunization: Unknown - Cardiac Hx Cardiac Disorders: Yes - Pulmonary Hx Respiratory Disorders: Yes Hx Chronic Obstructive Pulmonary Disease (COPD): Yes - Neurological Hx Neurological Disorder: Yes Other/Comment: paralysis 20 yrs ago post fall for 6-8 wks - HEENT Hx HEENT Disorder: No - Renal Hx Renal Disorder: Yes Hx Kidney Stones: Yes - Endocrine/Metabolic Hx Endocrine Disorders: No - Hematological/Oncological Hx Blood Disorders: Yes Other/Comment: blood transfusions - Integumentary Hx Dermatological Disorder: No - Musculoskeletal/Rheumatological Hx Musculoskeletal Disorders: Yes Hx Falls: Yes (recent) - Gastrointestinal Hx Gastrointestinal Disorders: Yes Other/Comment: gi bleed - Genitourinary/Gynecological Hx Genitourinary Disorders: No - Psychiatric Hx Psychophysiologic Disorder: No Hx Substance Use: No - Surgical History Other/Comment: right ankle pin, right knee fx with pin, carpal tunnel, right hip replacement, vertebrae replacement with 2 screws, 2 rods, 2 artificial verterbrae to cervical spine, and 2 in mid back, left knee. arthoscopic sx - Anesthesia Hx Anesthesia: Yes Hx Anesthesia Reactions: No Hx Malignant Hyperthermia: No - Suicidal Assessment Feels Threatened In Home Enviroment: No <Ryan Ornelas - Last Filed: 04/25/18 13:42> Family/Social History - Physician Review Nursing Documentation Reviewed: Yes Family/Social History: No Known Family HX (patient was adopted) Smoking Status: Former Smoker Hx Alcohol Use: No Hx Substance Use: No Hx Substance Use Treatment: No <Ryan Ornelas - Last Filed: 04/25/18 13:42> Allergies/Home Meds <Ryan Ornelas - Last Filed: 04/25/18 13:42> <Suzie Jung - Last Filed: 04/25/18 15:13> Allergies/Adverse Reactions: Allergies codeine Allergy (Verified 04/25/18 12:02) ANAPHYLAXIS hydromorphone HCl [From Dilaudid] Allergy (Verified 04/25/18 12:02) ANAPHYLAXIS meperidine HCl [From Demerol] Allergy (Verified 04/25/18 12:02) ANAPHYLAXIS Home Medications: Home Meds Medication Instructions Recorded Confirmed Clopidogrel [Plavix] 75 mg PO DAILY 04/18/12 04/25/18 Raloxifene HCl [Evista] 60 mg PO DAILY 04/18/12 04/25/18 Aspirin [Adult Low Dose Aspirin EC] 81 mg PO DAILY 10/18/16 04/25/18 Pantoprazole Sodium [Protonix] 40 mg PO DAILY 10/18/16 04/25/18 Rosuvastatin Calcium [Crestor] 20 mg PO HS 10/18/16 04/25/18 ALPRAZolam [Xanax] 1 mg PO DAILY 10/28/16 04/25/18 Ascorbate Calcium [Vitamin C] 500 mg PO DAILY 10/28/16 04/25/18 Calcium Carbonate/Vitamin D3 1 each PO DAILY 10/28/16 04/25/18 [Calcium 1,000 + D3 Caplet] Folic Acid 1 mg PO DAILY 10/28/16 04/25/18 Levocetirizine Dihydrochloride 5 mg PO DAILY 10/28/16 04/25/18 [Xyzal] Montelukast [Singulair] 10 mg PO DAILY 10/28/16 04/25/18 Multivit,Iron,Min 5/Folic Acid 1 tab PO DAILY 10/28/16 04/25/18 [Strovite Forte Caplet] Oxycodone HCl/Acetaminophen 1 each PO PRN PRN 10/28/16 04/25/18 [Percocet 10-325 mg Tablet] Tolterodine Tartrate [Detrol LA] 4 mg PO DAILY 10/28/16 04/25/18 Albuterol HFA [Ventolin HFA 90 2 puff IH QID PRN 09/02/17 04/25/18 mcg/actuation (8 g)] Benzonatate 200 mg PO TID 09/02/17 04/25/18 Ferrous Sulfate [Feosol] 325 mg PO DAILY 09/02/17 04/25/18 Fluticasone Nasal [Flonase] 1 spr NS HS 09/02/17 04/25/18 Review of Systems - Review of Systems Constitutional: absent: Fatigue, Fevers Eyes: absent: Vision Changes, Photophobia ENT: absent: Hearing Changes, Sore Throat Respiratory: SOB, Cough. absent: Sputum, Wheezing Cardiovascular: Chest Pain, BURT. absent: Calf Pain Gastrointestinal: absent: Abdominal Pain, Nausea, Vomiting Genitourinary Female: Dysuria. absent: Frequency Musculoskeletal: absent: Arthralgias, Joint Swelling Skin: absent: Rash, Pruritis Neurological: absent: Headache Endocrine: absent: Diaphoresis Hemo/Lymphatic: absent: Adenopathy Psychiatric: absent: Anxiety, Depression <Ryan Ornelas - Last Filed: 04/25/18 13:42> Physical Exam Vital Signs Reviewed: Yes Temperature: Afebrile Blood Pressure: Normal Pulse: Regular Respiratory Rate: Normal Appearance: Positive for: Non-Toxic, Uncomfortable Pain Distress: Moderate Mental Status: Positive for: Alert and Oriented X 3 - Systems Exam Head: Present: Atraumatic, Normocephalic Pupils: Present: PERRL Extroacular Muscles: Present: EOMI Conjunctiva: Present: Normal Ears: Present: Normal Mouth: Present: Moist Mucous Membranes Pharnyx: Present: Normal. No: ERYTHEMA, EXUDATE Nose (External): Present: Atraumatic Neck: Present: Normal Range of Motion. No: Paraspinal Tenderness, JVD Respiratory/Chest: Present: Decreased Breath Sounds (poor air movement bilaterally, consistent with poorly controlled chronic bronchitis). No: Wheezes , Rales, Rhonchi Cardiovascular: Present: Regular Rate and Rhythm, Normal S1, S2. No: Murmurs, Rub, Gallop Abdomen: No: Tenderness, Distention, Rebound, Guarding Upper Extremity: Present: Tenderness (tenderness to palpation of R ribs). No: Cyanosis, Edema, Swelling Lower Extremity: No: Edema, Cyanosis, Tenderness (no tenderness to R hip) Neurological: Present: Speech Normal Skin: Present: Warm, Dry Psychiatric: Present: Alert, Oriented x 3 <Ryan Ornelas - Last Filed: 04/25/18 13:42> Vital Signs Temp Pulse Resp BP Pulse Ox 04/25/18 15:00 71 18 122/62 95 04/25/18 13:41 75 20 119/67 95 04/25/18 12:05 98.1 F 124 H 18 178/83 H 98 Medical Decision Making <Ryan Ornelas - Last Filed: 04/25/18 13:42> - Lab Interpretations I have reviewed the lab results: Yes - RAD Interpretation Childbirth And Infant Care Teacher: Radiologist - EKG Interpretation Interpreted by ED Physician: Yes Type: 12 lead EKG <Suzie Jung - Last Filed: 04/25/18 15:13> ED Course and Treatment: 04/25/18 12:24 -Patient currently feels pain primarily over the R ribs -No pain to palpation of neck or R hip, no need for hip series -Patient denies hitting her head, patient without neurological symptoms, no need for head CT -Will give duo-neb treatment as patient has decreased breath sounds currently -Will obtain CXR and rib series 04/25/18 13:46 -Patient states she was recently treated for a UTI as an outpatient -She states she continues to have dysuria even though she finished 7 days of antibiotics -Will get UA and UCx along with CBC, CMP -Rib series positive for rib fx in ribs 6, 7, 8 -Will plan to admit for observation for pain control, incentive spirometry ( Ryan Ornelas) 04/25/18 In agreement with resident note, which includes further HPI details. Patient was seen and evaluated with resident, came up with plan and treatment together. Patient seen by resident and then evaluated by me. Patient presents complaining of R sided rib pain after slipping in bathtub this morning. She reports that she fell on her R side. Physical exam shows R sided bony rib tenderness. No bony hip tenderness and full and normal ROM of extremities. Steady gait. Denies head trauma. Denies LOC. Denies headache. Xray shows "Displaced fractures are seen of the right lateral 6th 7th and 8th ribs." EKG shows NSR at 92bpm with normal intervals and no st changes. Patient refusing narcotics for pain. Patient's lung exam shows decreased air entry. Patient has long standing hx of COPD. I am concerned about pain control and deterioration of baseline poor respiratory function due to 3 rib fractures. Recommend observation for pain control, monitoring of respiratory function, and incentive spirometry. Also complaining of prior outpatient treatment with 7 days of unknown antibiotic for uti, with persistent dysuria. UA and ucx ordered. 04/25/18 14:54 UA shows 5-10 wbc and leukocytes. Patient still complaining of dysuria. Due to recent treatment with po antibitoics will start rocephin pending ucx. 04/25/18 15:12 Discussed case with , who is aware of and agrees to admit patient to his service. (Suzie Jung) - Lab Interpretations Lab Results: 04/25/18 13:42 04/25/18 13:42 Lab Results 04/25/18 13:42: Sodium 142, Potassium 4.4, Chloride 109 H, Carbon Dioxide 24, Anion Gap 13, BUN 14, Creatinine 0.7, Est GFR ( Amer) > 60, Est GFR (Non- Af Amer) > 60, Random Glucose 86, Calcium 8.9, Total Bilirubin 0.3, AST 27, ALT 31, Alkaline Phosphatase 49, Total Protein 6.8, Albumin 3.9, Globulin 3.0, Albumin/Globulin Ratio 1.3 04/25/18 13:42: WBC 5.8 D, RBC 3.96, Hgb 11.5 L, Hct 35.0 L, MCV 88.4 D, MCH 29.0, MCHC 32.9, RDW 15.5 H, Plt Count 173, MPV 9.4, Gran % 73.7 H, Lymph % ( Auto) 19.2 L, [place] % (Auto) 4.8, Eos % (Auto) 2.1, Baso % (Auto) 0.2, Gran # 4.30, Lymph # (Auto) 1.1 L, [place] # (Auto) 0.3, Eos # (Auto) 0.1, Baso # (Auto) 0.01 04/25/18 13:15: Urine Color Yellow, Urine Appearance Sl cloudy, Urine pH 6.0, Ur Specific [place] 1.010, Urine Protein Negative, Urine Glucose (UA) Negative, Urine Ketones Negative, Urine Blood Negative, Urine Nitrate Negative, Urine Bilirubin Negative, Urine Urobilinogen 0.2, Ur Leukocyte Esterase Small H, Urine RBC Negative, Urine WBC 5 - 10, Ur Epithelial Cells 6 - 8 - RAD Interpretation Radiology Orders: 04/25/18 12:10 RIBS BILATERAL W/PA CHEST [RAD] Stat - Medication Orders Current Medication Orders: Discontinued Medications Acetaminophen (Tylenol 325mg Tab) 975 mg PO STAT STA Stop: 04/25/18 12:12 Last Admin: 04/25/18 12:19 Dose: 975 mg Albuterol/Ipratropium (Duoneb 3 Mg/0.5 Mg (3 Ml) Ud) 3 ml IH STAT STA Stop: 04/25/18 12:11 Last Admin: 04/25/18 12:19 Dose: 3 ml Disposition/Present on Arrival - Present on Arrival History of DVT/PE: No History of Uncontrolled Diabetes: No Urinary Catheter: No History of Decub. Ulcer: No History Surgical Site Infection Following: None <Ryan Ornelas - Last Filed: 04/25/18 13:42> - Present on Arrival Any Indicators Present on Arrival: No - Disposition Have Diagnosis and Disposition been Completed?: Yes Disposition Time: 13:37 Patient Plan: Observation <Suzie Jung - Last Filed: 04/25/18 15:13> - Disposition Diagnosis: Ribs, multiple fractures, Dysuria, Shortness of breath, UTI (urinary tract infection) Disposition: HOSPITALIZED Patient Problems: Current Active Problems Problem Status Onset Ribs, multiple fractures Acute Dysuria Acute Shortness of breath Acute Condition: FAIR
--- NOTE | 2018-04-25 13:20 | RAD ---
Date of service: 04/25/2018 PROCEDURE: Radiographs of the chest and bilateral ribs HISTORY: s/p fall, hit R side COMPARISON: None available. TECHNIQUE: Frontal radiograph of the chest and multiple oblique radiographs of the bilateral ribs were obtained. FINDINGS: RIGHT RIBS: Displaced fractures are seen of the right lateral 6th 7th and 8th ribs. LEFT RIBS: No fracture or focal lesion visualized. LUNGS: Clear. PLEURA: No pneumothorax or pleural fluid. CARDIOVASCULAR: Normal sized heart. No pulmonary vascular congestion. OTHER FINDINGS: None. IMPRESSION: Displaced fractures are seen of the right lateral 6th 7th and 8th ribs.
[2018-04-25 13:28] LABS: URINE BILIRUBIN NEGATIVE (NEGATIVE); URINE BLOOD NEGATIVE (NEGATIVE); URINE GLUCOSE (UA) NEGATIVE (NEGATIVE); URINE LEUKOCYTE ESTERASE SMALL Leu/uL (NEGATIVE); URINE PROTEIN NEGATIVE mg/dL (<30 mg/dL); URINE UROBILINOGEN 0.2 E.U./dL (<1 E.U./dL)
[2018-04-25 13:30] LABS: URINE APPEARANCE SL CLOUDY (CLEAR); URINE COLOR YELLOW (YELLOW)
[2018-04-25 13:40] LABS: URINE RBC NEGATIVE /hpf (0-2)
[2018-04-25 14:20] LABS: BASO # 0.01 K/mm3 (0.0-2.0); BASO % 0.2 % (0.0-3.0); EOS # 0.1 (0.0-0.7); EOS % 2.1 % (1.5-5.0); GRAN # 4.3 (1.4-6.5); GRAN % 73.7 % (50.0-68.0); HEMOGLOBIN 11.5 g/dL (12.0-16.0); LYMPH # 1.1 (1.2-3.4); LYMPH % 19.2 % (22.0-35.0); MEAN CELL VOLUME 88.4 fl (80.0-105.0); MEAN CORPUSCULAR HGB CONC 32.9 g/dl (31.0-37.0); MEAN PLATELET VOLUME 9.4 fl (7.0-11.0); MONO # 0.3 (0.1-0.6); MONO % 4.8 % (1.0-6.0); RBC 3.96 10^6/uL (3.5-6.1); RED CELL DISTRIBUTION WIDTH 15.5 % (11.5-14.5); WHITE BLOOD COUNT 5.8 10^3/ul (4.5-11.0)
[2018-04-25 14:24] LABS: ALB/GLOB RATIO 1.3 (1.1-1.8); ALBUMIN 3.9 g/dL (3.0-4.8); ALT/SGPT 31 U/L (7-56); AST/SGOT 27 U/L (14-36); BLOOD UREA NITROGEN 14 mg/dL (7-21); CALCIUM 8.9 mg/dL (8.4-10.5); GFR AFRICAN-AMERICAN > 60; GFR NON-AFRICAN AMERICAN > 60
[2018-04-25] MEDS ORDERED: cefTRIAXone (Rocephin) 1 gm Inj IVPB STA (15:11)
[2018-04-25] MEDS ORDERED: cefTRIAXone 1 GM/100 ML BAG IVPB STA (15:13)
--- NOTE | 2018-04-25 15:35 | CARD ---
APPROVED REPORT Date of service: 04/25/2018 EKG Measurement Heart [id number] <Conclusion> Normal sinus rhythm Normal ECG
[2018-04-25] MEDS: Albuterol-Ipratrop 3 mg / 0.5 (3 ml) UD IH PRN (19:14)
[2018-04-25] MEDS ORDERED: Pneumococcal 23-Valent Vaccine IM ONE (23:01)
[2018-04-26] MEDS: Albuterol-Ipratrop 3 mg / 0.5 (3 ml) UD IH PRN (05:19)
[2018-04-26 06:54] VITALS: BP 119/53; PULSE 60; RESP 20; TEMP 97.4; O2SAT 96
[2018-04-26] MEDS ORDERED: Budesonide 0.5 mg/2 ml Inhal Susp UD IH SCH (08:00)
[2018-04-26] MEDS ORDERED: Levalbuterol 1.25 MG/3 ML Inhal Soln UD IH SCH (08:00)
[2018-04-26] MEDS ORDERED: Acetylcysteine 20% Inhal Soln (4ml) IH SCH (08:00)
--- NOTE | 2018-04-26 09:10 | CON ---
Copied To: Kendrick Zimmerman MD Attending MD: Kendrick Zimmerman MD DATE: 04/26/2018 PULMONARY CONSULTATION REASON FOR CONSULTATION: Chronic obstructive pulmonary disease. REFERRING PHYSICIAN: Dr. Mccarthy. HISTORY: The patient is a 77-year-old female, with past medical history significant for advanced chronic obstructive pulmonary disease, positive extensive smoking history, coronary artery disease, status post multiple cardiac stents, hypertension, hyperlipidemia, frequent falls at home, who presents to [facility] after falling in her bathtub. Apparently, she was showering and then slipped - hitting her right side on the bathtub edge. After the fall, the patient did experience severe right rib pain. She then was evaluated in [facility]. Subsequent evaluation revealed multiple right-sided rib fractures. The patient was thus admitted for additional evaluation. The patient is not short of breath at rest. She does complain of increased dyspnea on exertion (chronic) - made worse by the fall. She also has a chronic cough with occasional sputum production.. Outside of the right-sided rib pain, the patient denies chest pain. There is no history of coughing up of blood. The patient's right-sided rib pain is increased with any movement. There is no history of temperatures, chills or infectious exposure. There is no history of night sweats, weight loss or appetite change prior to the above events. No history of leg or calf pains. No history of syncope or diaphoresis. No history of recent travel. REVIEW OF SYSTEMS No history of nausea, vomiting or diarrhea. No acute urinary symptoms. No new neurologic complaints. Rest of the review of systems is negative. ALLERGIES: TO CODEINE, DILAUDID AND DEMEROL. SOCIAL HISTORY: Positive for extensive tobacco usage - no alcohol. FAMILY HISTORY: No inheritable diseases. HOME MEDICATIONS: Include albuterol HFA, Xanax, DuoNeb p.r.n., Plavix, Singulair, Lopressor, Xyzal, Xopenex, Flonase, Feosol, Ambien, Crestor, Evista, Protonix, Percocet, Ultram. PHYSICAL EXAMINATION: GENERAL: The patient appears comfortable at rest. She is not short of breath. She is not using accessory muscles for breathing. VITAL SIGNS: Temperature is 97.4, pulse 60, respirations 18/20, blood pressure 119/53. Oxygen saturation on nasal cannula is 96-98%. HEENT: Normocephalic, atraumatic. No JVD. CARDIOVASCULAR: Systolic ejection murmur at the lower left sternal border. No S3 gallop. LUNGS: Decreased breath sounds at the bases. Mild loose rhonchi bilaterally. No wheezing. EXTREMITIES: No clubbing, cyanosis or edema. Calves are nontender to palpation. GI: Abdomen is soft, nontender and nondistended. Bowel sounds are positive. SKIN: No acute rash. NEUROLOGIC: Limited at the present time. PERTINENT LABORATORY DATA: Rib series was done yesterday and reviewed. The lungs are clear. However, there are displaced fractures seen in the right lateral sixth, seventh and eighth ribs. CBC: White count 5.8K, hemoglobin 11.5, hematocrit 35, platelets of 173,000. Complete metabolic profile: Chloride 109. Rest of the metabolic profile is within normal limits. IMPRESSION: 1. Multiple right-sided rib fractures, status post fall. 2. Advanced chronic obstructive pulmonary disease. 3. Mild anemia. 4. Coronary artery disease. PLAN: The patient presents to [facility] - after falling in her bathtub - and sustaining multiple right-sided rib fractures. As above, her lungs show no acute abnormalities. The patient is strongly advised to use her incentive spirometer frequently, and be out of bed as much as possible. I did review the chest x-ray/rib series - noted above. Other than the right-sided rib fractures, the lungs are clear. On physical exam, there is mild bronchospasm noted. However, there is no significant alveolar-arterial gradient. Oxygen saturation on nasal cannula is 96-98%. I will place the patient on Xopenex nebulizer treatments and inhaled Pulmicort. I will also add a small amount of inhaled Mucomyst - to help the patient's pulmonary toilet. Lastly, the patient is on nasal steroids and I will continue with them for now. The patient does feel better this morning - compared to yesterday. She is clinically improved. Additional pulmonary intervention will be based on the clinical status of the patient. I will discuss the above with Dr. Mccarthy. Thank you very much for this pulmonary consultation. Kednrick Zimmerman MD [facility] # [id number] [place]
[2018-04-26] MEDS ORDERED: Fluticasone Nasal 50 mcg/Spray NS SCH (10:00)
== END 2018-04-26 11:07 | disposition home or self-care (01) ==
LOC: ED 11:44 → ERH 13:56 → 3RNO 16:40
PROVIDERS: ADMIT Internal Medicine; ATTEND Internal Medicine
DX: S22.43XA Multiple fractures of ribs, bilateral, initial encounter for closed fracture (principal); N39.0 Urinary tract infection, site not specified; J44.9 Chronic obstructive pulmonary disease, unspecified; D64.9 Anemia, unspecified; I25.10 Atherosclerotic heart disease of native coronary artery without angina pectoris; E78.5 Hyperlipidemia, unspecified; I10 Essential (primary) hypertension; Y93.E1 Activity, personal bathing and showering; W18.2XXA Fall in (into) shower or empty bathtub, initial encounter; Y92.091 Bathroom in other non-institutional residence as the place of occurrence of the external cause; Z79.02 Long term (current) use of antithrombotics/antiplatelets; Z87.891 Personal history of nicotine dependence; Z79.82 Long term (current) use of aspirin; Z95.2 Presence of prosthetic heart valve; Z95.5 Presence of coronary angioplasty implant and graft; Z88.5 Allergy status to narcotic agent; Z96.641 Presence of right artificial hip joint
CPT/HCPCS: 71111; 80053; 81001; 85025; 87086; 93005; 94640; 94760; 96365; 99285; G0378; J0696

== ENCOUNTER 2018-06-23 10:24 | Emergency (ER) | payer MEDICARE, OTHER ==
[2018-06-23 10:25] VITALS: BMI 25.4
[2018-06-23 10:40] VITALS: RESP 18; TEMP 98.9
[2018-06-23] MEDS ORDERED: TDAP Vaccine 0.5 mL Syr IM ONE (10:57)
--- NOTE | 2018-06-23 11:03 | ED PDOC ---
Arrival/HPI - General Chief Complaint: Trauma Time Seen by Provider: 06/23/18 10:57 Historian: Patient - History of Present Illness Narrative History of Present Illness (Text): 06/23/18 10:58 A 77 year old female, whose past medical history includes presents to the emergency department with a complaint of abrasions to her left knee and right elbow. The patient notes that she fell getting out of the bathtub. She states that she was seen in Dr. Winn's office this morning who told her to come into the emergency department to get a tetanus shot. The patient denies head trauma or LOC. The patient denies fevers, chills, headache, dizziness, abdominal pain, nausea, vomiting, diarrhea, back pain, neck pain, chest pain, shortness of breath, dyspnea on exertion, cough or any other complaint. PMD: Dr. Mccarthy Time/Duration: Other (This morning) Symptom Onset: Sudden Symptom Course: Unchanged Activities at Onset: Rest, Light Context: Home Past Medical History - Provider Review Nursing Documentation Reviewed: Yes - Infectious Disease Hx of Infectious Diseases: None - Tetanus Immunization Tetanus Immunization: Unknown - Reproductive Menopause: Yes - Cardiac Hx Cardiac Disorders: Yes (CAD) Other/Comment: VALVE REPLACEMENT - Pulmonary Hx Respiratory Disorders: Yes Hx Chronic Obstructive Pulmonary Disease (COPD): Yes Hx Pneumonia: Yes - Neurological Hx Neurological Disorder: Yes Hx Dizziness: Yes (VERTIGO) Other/Comment: paralysis 20 yrs ago post fall for 6-8 wks - HEENT Hx HEENT Disorder: No - Renal Hx Renal Disorder: Yes Hx Kidney Stones: Yes - Endocrine/Metabolic Hx Endocrine Disorders: No - Hematological/Oncological Hx Blood Disorders: Yes Other/Comment: blood transfusions - Integumentary Hx Dermatological Disorder: Yes Other/Comment: MULTIPLE BRUISING. - Musculoskeletal/Rheumatological Hx Musculoskeletal Disorders: Yes (LUMBAR SPODYLOSIS,13 ORTHO SX,) Hx Falls: Yes (recent) Hx Unsteady Gait: Yes (WALKER) - Gastrointestinal Hx Gastrointestinal Disorders: Yes Other/Comment: gi bleed - Genitourinary/Gynecological Hx Genitourinary Disorders: Yes Hx Urinary Tract Infection: Yes - Psychiatric Hx Psychophysiologic Disorder: No Hx Substance Use: No - Surgical History Hx Coronary Stent: Yes (7 STENTS) Other/Comment: right ankle pin, right knee fx with pin, carpal tunnel, right hip replacement, vertebrae replacement with 2 screws, 2 rods, 2 artificial verterbrae to cervical spine, and 2 in mid back, left knee. arthoscopic sx - Anesthesia Hx Anesthesia: Yes Hx Anesthesia Reactions: No Hx Malignant Hyperthermia: No - Suicidal Assessment Feels Threatened In Home Enviroment: No Family/Social History - Physician Review Nursing Documentation Reviewed: Yes Family/Social History: No Known Family HX Smoking Status: Never Smoked Hx Alcohol Use: No Hx Substance Use: No Hx Substance Use Treatment: No Allergies/Home Meds Allergies/Adverse Reactions: Allergies codeine Allergy (Verified 04/25/18 21:13) ANAPHYLAXIS hydromorphone HCl [From Dilaudid] Allergy (Verified 04/25/18 21:13) ANAPHYLAXIS meperidine HCl [From Demerol] Allergy (Verified 04/25/18 21:13) ANAPHYLAXIS Home Medications: Home Meds Medication Instructions Recorded Confirmed RX: Clopidogrel [Plavix] 75 mg PO DAILY 04/18/12 04/25/18 RX: Raloxifene HCl [Evista] 60 mg PO DAILY 04/18/12 04/25/18 RX: Aspirin [Adult Low Dose 81 mg PO DAILY 10/18/16 04/25/18 Aspirin EC] RX: Pantoprazole Sodium [Protonix] 40 mg PO DAILY 10/18/16 04/25/18 RX: Rosuvastatin Calcium [Crestor] 20 mg PO HS 10/18/16 04/25/18 RX: ALPRAZolam [Xanax] 1 mg PO DAILY 10/28/16 04/25/18 RX: Ascorbate Calcium [Vitamin C] 500 mg PO DAILY 10/28/16 04/25/18 RX: Calcium Carbonate/Vitamin D3 1 each PO DAILY 10/28/16 04/25/18 [Calcium 1,000 + D3 Caplet] RX: Folic Acid 1 mg PO DAILY 10/28/16 04/25/18 RX: Levocetirizine Dihydrochloride 5 mg PO DAILY 10/28/16 04/25/18 [Xyzal] RX: Montelukast [Singulair] 10 mg PO DAILY 10/28/16 04/25/18 RX: Multivit,Iron,Min 5/Folic Acid 1 tab PO DAILY 10/28/16 04/25/18 [Strovite Forte Caplet] RX: Oxycodone HCl/Acetaminophen 1 each PO PRN PRN 10/28/16 04/25/18 [Percocet 10-325 mg Tablet] RX: Tolterodine Tartrate [Detrol 4 mg PO DAILY 10/28/16 04/25/18 LA] RX: Albuterol HFA [Ventolin HFA 90 2 puff IH QID PRN 09/02/17 04/25/18 mcg/actuation (8 g)] RX: Benzonatate 200 mg PO TID 09/02/17 04/25/18 RX: Ferrous Sulfate [Feosol] 325 mg PO DAILY 09/02/17 04/25/18 RX: Fluticasone Nasal [Flonase] 1 spr NS HS 09/02/17 04/25/18 Review of Systems - Physician Review All systems were reviewed & negative as marked: Yes - Review of Systems Constitutional: absent: Fevers Respiratory: absent: SOB, Cough Cardiovascular: absent: Chest Pain, BURT Gastrointestinal: absent: Abdominal Pain, Stool Changes, Diarrhea, Nausea, Vomiting Genitourinary Female: absent: Urine Output Changes Musculoskeletal: absent: Back Pain, Neck Pain Skin: Other (Abrasions to the left knee and right elbow.) Neurological: absent: Headache, Dizziness Physical Exam Vital Signs Reviewed: Yes Vital Signs Temp Pulse Resp BP Pulse Ox 06/23/18 10:36 98.9 F 88 18 137/70 98 Temperature: Afebrile Blood Pressure: Normal Pulse: Regular Respiratory Rate: Normal Appearance: Positive for: Well-Appearing, Non-Toxic, Comfortable Pain Distress: None Mental Status: Positive for: Alert and Oriented X 3 - Systems Exam Head: Present: Atraumatic, Normocephalic Pupils: Present: PERRL Extroacular Muscles: Present: EOMI Conjunctiva: Present: Normal Mouth: Present: Moist Mucous Membranes Neck: Present: Normal Range of Motion Respiratory/Chest: Present: Clear to Auscultation, Good Air Exchange. No: Respiratory Distress, Accessory Muscle Use Cardiovascular: Present: Regular Rate and Rhythm, Normal S1, S2. No: Murmurs Abdomen: No: Tenderness, Distention, Peritoneal Signs Back: Present: Normal Inspection Upper Extremity: Present: Normal Inspection. No: Cyanosis, Edema Lower Extremity: Present: Normal Inspection. No: Edema Neurological: Present: GCS=15, CN II-XII Intact, Speech Normal Skin: Present: Warm, Dry, Normal Color, Abrasion (Circular abrasion over rishi left knee. No bony tenderness. 2 cm. skin tear over the right posterior elbow. No significant bleeding.). No: Rashes Psychiatric: Present: Alert, Oriented x 3, Normal Insight, Normal Concentration Medical Decision Making ED Course and Treatment: 06/23/18 11:09 Impression: A 77 year old female presents to the emergency department requesting a tetanus shot s/p fall sustaining abrasions to her left knee and right elbow. Plan: -- Boostrix Vaccine -- Reassess and disposition Prior Visits: Notes and results from previous visits were reviewed. Progress Notes: 06/23/18 11:10 Patient is in no acute distress. Patient in agreement with plan to be discharged home. Patient is stable for discharge. Patient was instructed to follow up with physician/clinic in 1-2 days or return if symptoms worsen or new concerning symptoms arise. - Scribe Statement The provider has reviewed the documentation as recorded by the Carmenibe Gabbi Simpson Provider Scribe Attestation: All medical record entries made by the Scribe were at my direction and personally dictated by me. I have reviewed the chart and agree that the record accurately reflects my personal performance of the history, physical exam, medical decision making, and the department course for this patient. I have also personally directed, reviewed, and agree with the discharge instructions and disposition Disposition/Present on Arrival - Present on Arrival Any Indicators Present on Arrival: No History of DVT/PE: No History of Uncontrolled Diabetes: No Urinary Catheter: No History of Decub. Ulcer: No History Surgical Site Infection Following: None - Disposition Have Diagnosis and Disposition been Completed?: Yes Diagnosis: Skin tear Disposition: HOME/ ROUTINE Disposition Time: 16:46 Patient Plan: Discharge Condition: STABLE Discharge Instructions (ExitCare): Wound Care Additional Instructions: Follow up at the wound care center as soon possible to help take care of the skin tear on the forearm. ZAC QUINTEROS, thank you for letting us take care of you today. Your provider was Dr. Coleman Boo and you were treated for skin tear. The emergency medical care you received today was directed at your acute symptoms. If you were prescribed any medication, please fill it and take as directed. It may take several days for your symptoms to resolve. Return to the Emergency Department if your symptoms worsen, do not improve, or if you have any other problems. Please contact your doctor or call one of the physicians/clinics you have been referred to that are listed on the Patient Visit Information form that is included in your discharge packet. Bring any paperwork you were given at discharge with you along with any medications you are taking to your follow up visit. Our treatment cannot replace ongoing medical care by a primary care provider outside of the emergency department. Thank you for allowing the [facility] team to be part of your care today. If you had an X-Ray or CT scan: A Radiologist will review the ED reading if any change in treatment is needed we will contact you. If you had a blood, urine, or wound culture: It will take several days for the results, if any change in treatment is needed we will contact you. If you had an STI test: It will take 48 hours for the results. Please call after 1 week if you have not heard back. Referrals: [facility] [Outside] - Follow up with primary Forms: [employer] ([place])
[2018-06-23 11:24] VITALS: BP 132/70; PULSE 82; O2SAT 99
== END 2018-06-23 11:24 | disposition home or self-care (01) ==
LOC: ED 10:24
DX: S51.011A Laceration without foreign body of right elbow, initial encounter (principal); W19.XXXA Unspecified fall, initial encounter; Y93.E1 Activity, personal bathing and showering; I25.10 Atherosclerotic heart disease of native coronary artery without angina pectoris; J44.9 Chronic obstructive pulmonary disease, unspecified; Z23 Encounter for immunization

== ENCOUNTER 2018-06-28 10:59 | Emergency (ER) | payer MEDICARE, OTHER ==
[2018-06-28 10:59] VITALS: BMI 25.4
[2018-06-28 11:25] VITALS: RESP 18
--- NOTE | 2018-06-28 12:35 | ED PDOC ---
Arrival/HPI - General Chief Complaint: Trauma Time Seen by Provider: 06/28/18 12:13 Historian: Patient - History of Present Illness Narrative History of Present Illness (Text): 06/28/18 12:13 77 F, whose past medical history includes CAD, 7 stents, COPD, PNA, renal disorder, right ankle pin, right knee fx with pin, carpal tunnel, right hip replacement, vertebrae replacement with 2 screws, 2 rods, and 2 artificial verterbrae to cervical spine, and 2 in mid back, left knee, who presents to the Emergency department with cc of aching pain to buttocks and hips, status post falling onto her butt "really hard." Pt reports going to the bathroom, losing her balance and then falling. Patient states she has a numb hand and a tingling feeling in toes and legs since she fell. Patient denies loss of consciousness, neck pain, or any other complaints. Time/Duration: Prior to Arrival (pt notes losing balance and falling onto her buttocks) Symptom Onset: Sudden Symptom Course: Unchanged Quality: Aching Activities at Onset: Light Past Medical History - Provider Review Nursing Documentation Reviewed: Yes - Infectious Disease Hx of Infectious Diseases: None - Tetanus Immunization Tetanus Immunization: Unknown - Reproductive Menopause: Yes - Cardiac Hx Cardiac Disorders: Yes (CAD) Other/Comment: VALVE REPLACEMENT - Pulmonary Hx Respiratory Disorders: Yes Hx Chronic Obstructive Pulmonary Disease (COPD): Yes Hx Pneumonia: Yes - Neurological Hx Neurological Disorder: Yes Hx Dizziness: Yes (VERTIGO) Other/Comment: paralysis 20 yrs ago post fall for 6-8 wks - HEENT Hx HEENT Disorder: No - Renal Hx Renal Disorder: Yes Hx Kidney Stones: Yes - Endocrine/Metabolic Hx Endocrine Disorders: No - Hematological/Oncological Hx Blood Disorders: Yes Other/Comment: blood transfusions - Integumentary Hx Dermatological Disorder: Yes Other/Comment: MULTIPLE BRUISING. - Musculoskeletal/Rheumatological Hx Musculoskeletal Disorders: Yes (LUMBAR SPODYLOSIS,13 ORTHO SX,) Hx Falls: Yes (recent) Hx Unsteady Gait: Yes (WALKER) - Gastrointestinal Hx Gastrointestinal Disorders: Yes Other/Comment: gi bleed - Genitourinary/Gynecological Hx Genitourinary Disorders: Yes Hx Urinary Tract Infection: Yes - Psychiatric Hx Psychophysiologic Disorder: No Hx Substance Use: No - Surgical History Hx Coronary Stent: Yes (7 STENTS) Other/Comment: right ankle pin, right knee fx with pin, carpal tunnel, right hip replacement, vertebrae replacement with 2 screws, 2 rods, 2 artificial vert erbrae to cervical spine, and 2 in mid back, left knee. arthoscopic sx - Anesthesia Hx Anesthesia: Yes Hx Anesthesia Reactions: No Hx Malignant Hyperthermia: No - Suicidal Assessment Feels Threatened In Home Enviroment: No Family/Social History - Physician Review Nursing Documentation Reviewed: Yes Family/Social History: No Known Family HX Smoking Status: Never Smoked Hx Alcohol Use: No Hx Substance Use: No Hx Substance Use Treatment: No Allergies/Home Meds Allergies/Adverse Reactions: Allergies codeine Allergy (Verified 04/25/18 21:13) ANAPHYLAXIS hydromorphone HCl [From Dilaudid] Allergy (Verified 04/25/18 21:13) ANAPHYLAXIS meperidine HCl [From Demerol] Allergy (Verified 04/25/18 21:13) ANAPHYLAXIS Home Medications: Home Meds Medication Instructions Recorded Confirmed RX: Clopidogrel [Plavix] 75 mg PO DAILY 04/18/12 04/25/18 RX: Raloxifene HCl [Evista] 60 mg PO DAILY 04/18/12 04/25/18 RX: Aspirin [Adult Low Dose 81 mg PO DAILY 10/18/16 04/25/18 Aspirin EC] RX: Pantoprazole Sodium [Protonix] 40 mg PO DAILY 10/18/16 04/25/18 RX: Rosuvastatin Calcium [Crestor] 20 mg PO HS 10/18/16 04/25/18 RX: ALPRAZolam [Xanax] 1 mg PO DAILY 10/28/16 04/25/18 RX: Ascorbate Calcium [Vitamin C] 500 mg PO DAILY 10/28/16 04/25/18 RX: Calcium Carbonate/Vitamin D3 1 each PO DAILY 10/28/16 04/25/18 [Calcium 1,000 + D3 Caplet] RX: Folic Acid 1 mg PO DAILY 10/28/16 04/25/18 RX: Levocetirizine Dihydrochloride 5 mg PO DAILY 10/28/16 04/25/18 [Xyzal] RX: Montelukast [Singulair] 10 mg PO DAILY 10/28/16 04/25/18 RX: Multivit,Iron,Min 5/Folic Acid 1 tab PO DAILY 10/28/16 04/25/18 [Strovite Forte Caplet] RX: Oxycodone HCl/Acetaminophen 1 each PO PRN PRN 10/28/16 04/25/18 [Percocet 10-325 mg Tablet] RX: Tolterodine Tartrate [Detrol 4 mg PO DAILY 10/28/16 04/25/18 LA] RX: Albuterol HFA [Ventolin HFA 90 2 puff IH QID PRN 09/02/17 04/25/18 mcg/actuation (8 g)] RX: Benzonatate 200 mg PO TID 09/02/17 04/25/18 RX: Ferrous Sulfate [Feosol] 325 mg PO DAILY 09/02/17 04/25/18 RX: Fluticasone Nasal [Flonase] 1 spr NS HS 09/02/17 04/25/18 Review of Systems - Physician Review All systems were reviewed & negative as marked: Yes (All other systems negative except that noted in the HPI.) Physical Exam - Physical Exam Narrative Physical Exam (Text): 06/28/18 12:13 Gen: VS reviewed, alert, well developed, well nourished, nontoxic, mild distress. ENT: normal pharynx Eye: EOMI, PERRL Neck: no JVD, supple, no adenopathy CV: regular rate, regular rhythm, no rubs, no murmer, no gallops, S1, S2, pulses equal and strong Pulm: no distress, clear to auscultation, no wheeze, no rhonci, breath sounds equal, no rales Abd: soft, nontender, no guarding, no rebound, no rigidity, normal bowel sounds Ext: Dressing over her right forearm and left knee. Tenderness of bilateral hips, but no deformity. Back: Diffuse tenderness of her back. Skin: good color, no rash, no cyanosis Psych: responds appropriately to questions, normal affect Neuro: oriented x3, CN2-12 intact grossly, motor intact, sensation intact Vital Signs Reviewed: Yes Vital Signs Temp Pulse Resp BP Pulse Ox 06/28/18 11:21 99.1 F 90 18 149/81 96 Temperature: Afebrile Blood Pressure: Normal Pulse: Regular Respiratory Rate: Normal Appearance: Positive for: Well-Appearing, Non-Toxic Pain Distress: Mild Mental Status: Positive for: Alert and Oriented X 3 Medical Decision Making ED Course and Treatment: 06/28/18 12:13 Impression: Differential Diagnosis included but are not limited to: Plan: -- CT of cervical spine w/o contrast -- CT of chest, abd, pel w/ IV contrast -- CT of head w/o contrast -- CT of lumbar spine w/o contrast -- CT of thoracic spine w/o contrast -- EKG -- CMP -- CBC (with differential) -- Toradol -- Tylenol 325 mg -- Reassess and disposition Prior Visits: Notes and results from previous visits were reviewed. Patient was last seen in the emergency department on 06/23/18 with a complaint of abrasions to her left knee and right elbow. Patient discharged home in stable condition, diagnosed with a skin tear. Progress Notes: 06/28/18 15:57 patient feels much better, patient no longer has tingling sensation in the hands. patient feels well and ready to go home. her dressings have been changed in the ED. patient states her family member will assist her home. - RAD Interpretation Narrative RAD Interpretations (Text): CT of head reviewed by radiologist, shows: Dictator : Carlos Link MD Report Date : 06/28/2018 15:20:42 FINDINGS: HEMORRHAGE: No intracranial hemorrhage. BRAIN: No mass effect or edema. Severe chronic microvascular changes. Mild to moderate atrophy. No acute findings VENTRICLES: Unremarkable. No hydrocephalus. CALVARIUM: Unremarkable. PARANASAL SINUSES: Unremarkable as visualized. No significant inflammatory changes. MASTOID AIR CELLS: Unremarkable as visualized. No inflammatory changes. OTHER FINDINGS: None. IMPRESSION: Severe chronic microvascular changes. Mild to moderate atrophy. No acute findings CT of cervical spine reviewed by radiologist, shows: Dictator : Carlos Link MD Report Date : 06/28/2018 15:23:23 FINDINGS: VERTEBRAE: No fracture. Normal alignment. No destructive bony lesion. DISCS/SPINAL CANAL/NEURAL FORAMINA: No significant central canal or neural foraminal stenosis. Intradiscal fusion devices are seen at C4-5 and C5-6. PARASPINAL SOFT TISSUES: Unremarkable. OTHER FINDINGS: None. IMPRESSION: No acute findings CT of chest/abdomen/pelvis reviewed by radiologist, shows: Dictator : Carlos Link MD Report Date : 06/28/2018 15:49:57 FINDINGS: CT CHEST WITH CONTRAST: LUNGS: Emphysematous changes are seen in both lungs. MEDIASTINUM: Unremarkable. Normal caliber aorta and pulmonary arterial trunk. No aortic dissection. Normal size heart. LYMPH NODES: Unremarkable. PLEURA: Unremarkable. No pneumothorax. No pleural fluid. BONES: Unremarkable. OTHER FINDINGS: None. CT ABDOMEN AND PELVIS: LIVER: Unremarkable. No gross lesion or ductal dilatation. GALLBLADDER AND BILE DUCTS: Unremarkable. PANCREAS: Unremarkable. No gross lesion or ductal dilatation. SPLEEN: Unremarkable. ADRENALS: Unremarkable. No mass. KIDNEYS AND URETERS: Unremarkable. No hydronephrosis. No solid mass. VASCULATURE: Unremarkable. No aortic aneurysm. Caval filter BOWEL: Unremarkable. No obstruction. No gross mural thickening. APPENDIX: Normal appendix. PERITONEUM: Unremarkable. No free fluid. No free air. LYMPH NODES: Unremarkable. No enlarged lymph nodes. BLADDER: Unremarkable. REPRODUCTIVE: Unremarkable. BONES: No acute fracture. OTHER FINDINGS: None. IMPRESSION: No acute findings CT of Lumbar spine reviewed by radiologist, shows: Dictator : Carlos Link MD Report Date : 06/28/2018 15:36:21 FINDINGS: VERTEBRAE: Unremarkable. No fracture. Normal alignment. There has been previous fusion with pedicle screws and rods from L5. DISCS/SPINAL CANAL/NEURAL FORAMINA: L1-2: Unremarkable. L2-3: Unremarkable. L3-4: Laminectomy. L4-5: There is mild anterior subluxation of L4 over L5. L5-S1: There is disc degeneration at L5-S1. PARASPINAL SOFT TISSUES: Unremarkable. OTHER FINDINGS: There is a transverse screw through the sacrum and iliac bones IMPRESSION: Status post fusion L3 through L5. No acute findings CT of thoracic spine reviewed by radiologist, shows: Dictator : Carlos Link MD Report Date : 06/28/2018 15:30:08 FINDINGS: VERTEBRAE: Unremarkable. No fracture. Normal alignment. DISCS/SPINAL CANAL/NEURAL FORAMINA: Within the limits of the CT technique, no disc herniation seen. No central canal or neural foraminal stenosis.. PARASPINAL SOFT TISSUES: Unremarkable. OTHER FINDINGS: Unremarkable. IMPRESSION: Unremarkable CT of the thoracic spine. Radiology Orders: 06/28/18 12:15 CERVICAL SPINE W/O CONTRAST [CT] Stat HEAD W/O CONTRAST [CT] Stat 06/28/18 12:16 CHEST,ABD,PEL W/IV CONT ONLY [CT] Stat LUMBAR SPINE W/O CONTRAST [CT] Stat THORACIC SPINE W/O CONT [CT] Stat Computer Sciences Professor: Radiologist - EKG Interpretation EKG Interpretation (Text): 06/28/18 13:15 1250: nsr at 78 bpm, nml qrs, nml axis, no acute sttw abn Interpreted by ED Physician: Yes Type: 12 lead EKG - Medication Orders Current Medication Orders: Discontinued Medications Acetaminophen (Tylenol 325mg Tab) 975 mg PO STAT STA Stop: 06/28/18 12:16 Ketorolac Tromethamine (Toradol) 15 mg IVP STAT STA Stop: 06/28/18 12:16 - Scribe Statement The provider has reviewed the documentation as recorded by the Scribe Christien Marte All medical record entries made by the Scribe were at my direction and personally dictated by me. I have reviewed the chart and agree that the record accurately reflects my personal performance of the history, physical exam, medical decision making, and the department course for this patient. I have also personally directed, reviewed, and agree with the discharge instructions and disposition. Disposition/Present on Arrival - Present on Arrival Any Indicators Present on Arrival: No History of DVT/PE: No History of Uncontrolled Diabetes: No Urinary Catheter: No History of Decub. Ulcer: No History Surgical Site Infection Following: None - Disposition Have Diagnosis and Disposition been Completed?: Yes Diagnosis: Fall, Multiple contusions, Coccyx contusion Disposition: HOME/ ROUTINE Disposition Time: 15:58 Patient Plan: Discharge Condition: STABLE Discharge Instructions (ExitCare): Contusion (DC), Coccyx Injury Additional Instructions: Follow up with your primary care doctor. you should use a donut shaped pillow if it hurts to sit on your tailbone. ZAC QUINTEROS, thank you for letting us take care of you today. Your provider was Dr. Coleman Boo and you were treated for FALL. The emergency medical care you received today was directed at your acute symptoms. If you were prescribed any medication, please fill it and take as directed. It may take several days for your symptoms to resolve. Return to the Emergency Department if your symptoms worsen, do not improve, or if you have any other problems. Please contact your doctor or call one of the physicians/clinics you have been referred to that are listed on the Patient Visit Information form that is included in your discharge packet. Bring any paperwork you were given at discharge with you along with any medications you are taking to your follow up visit. Our treatment cannot replace ongoing medical care by a primary care provider outside of the emergency department. Thank you for allowing the [facility] team to be part of your care today. If you had an X-Ray or CT scan: A Radiologist will review the ED reading if any change in treatment is needed we will contact you. If you had a blood, urine, or wound culture: It will take several days for the results, if any change in treatment is needed we will contact you. If you had an STI test: It will take 48 hours for the results. Please call after 1 week if you have not heard back. Referrals: Carlos Mccarthy MD [Primary Care Provider] - Follow up with primary Forms: [employer] ([place])
[2018-06-28 13:19] LABS: BASO # 0.02 K/mm3 (0.0-2.0); BASO % 0.3 % (0.0-3.0); EOS # 0.2 (0.0-0.7); EOS % 2.1 % (1.5-5.0); GRAN # 5.6 (1.4-6.5); GRAN % 77.9 % (50.0-68.0); HEMOGLOBIN 12.4 g/dL (12.0-16.0); LYMPH # 1.1 (1.2-3.4); LYMPH % 14.6 % (22.0-35.0); MEAN CELL VOLUME 88.6 fl (80.0-105.0); MEAN CORPUSCULAR HEMOGLOBIN 28.4 pg (25.0-35.0); MEAN PLATELET VOLUME 9.9 fl (7.0-11.0); MONO # 0.4 (0.1-0.6); MONO % 5.1 % (1.0-6.0); RBC 4.37 10^6/uL (3.5-6.1); RED CELL DISTRIBUTION WIDTH 13.6 % (11.5-14.5); WHITE BLOOD COUNT 7.2 10^3/ul (4.5-11.0)
[2018-06-28 13:29] LABS: ALB/GLOB RATIO 1.2 (1.1-1.8); ALBUMIN 3.9 g/dL (3.0-4.8); ALT/SGPT 16 U/L (7-56); AST/SGOT 36 U/L (14-36); BLOOD UREA NITROGEN 13 mg/dL (7-21); GFR NON-AFRICAN AMERICAN > 60
[2018-06-28 14:26] VITALS: BP 145/78; PULSE 99; TEMP 98.2; O2SAT 98
--- NOTE | 2018-06-28 14:56 | CARD ---
APPROVED REPORT Date of service: 06/28/2018 EKG Measurement Heart [id number] <Conclusion> Normal sinus rhythm Normal ECG
--- NOTE | 2018-06-28 15:24 | CT ---
Date of service: 06/28/2018 PROCEDURE: CT HEAD WITHOUT CONTRAST. HISTORY: trauma COMPARISON: None available. TECHNIQUE: Axial computed tomography images were obtained through the head/brain without intravenous contrast. Radiation dose: Total exam DLP = 939 mGy-cm. This CT exam was performed using one or more of the following dose reduction techniques: Automated exposure control, adjustment of the mA and/or kV according to patient size, and/or use of iterative reconstruction technique. FINDINGS: HEMORRHAGE: No intracranial hemorrhage. BRAIN: No mass effect or edema. Severe chronic microvascular changes. Mild to moderate atrophy. No acute findings VENTRICLES: Unremarkable. No hydrocephalus. CALVARIUM: Unremarkable. PARANASAL SINUSES: Unremarkable as visualized. No significant inflammatory changes. MASTOID AIR CELLS: Unremarkable as visualized. No inflammatory changes. OTHER FINDINGS: None. IMPRESSION: Severe chronic microvascular changes. Mild to moderate atrophy. No acute findings
--- NOTE | 2018-06-28 15:27 | CT ---
Date of service: 06/28/2018 PROCEDURE: CT Cervical Spine without contrast HISTORY: trauma COMPARISON: None available. TECHNIQUE: Axial computed tomography images were obtained of the cervical spine without the use of intravenous contrast. Coronal and sagittal reformatted images were created and reviewed. Radiation dose: Total exam DLP = 453 mGy-cm. This CT exam was performed using one or more of the following dose reduction techniques: Automated exposure control, adjustment of the mA and/or kV according to patient size, and/or use of iterative reconstruction technique. FINDINGS: VERTEBRAE: No fracture. Normal alignment. No destructive bony lesion. DISCS/SPINAL CANAL/NEURAL FORAMINA: No significant central canal or neural foraminal stenosis. Intradiscal fusion devices are seen at C4-5 and C5-6. PARASPINAL SOFT TISSUES: Unremarkable. OTHER FINDINGS: None. IMPRESSION: No acute findings
--- NOTE | 2018-06-28 15:33 | CT ---
Date of service: 06/28/2018 PROCEDURE: CT Thoracic Spine without contrast HISTORY: trauma COMPARISON: None available. TECHNIQUE: Axial computed tomography images were obtained of the thoracic spine without intravenous contrast. Coronal and sagittal reformatted images were created and reviewed. Radiation dose: Total exam DLP = 324 mGy-cm. This CT exam was performed using one or more of the following dose reduction techniques: Automated exposure control, adjustment of the mA and/or kV according to patient size, and/or use of iterative reconstruction technique. FINDINGS: VERTEBRAE: Unremarkable. No fracture. Normal alignment. DISCS/SPINAL CANAL/NEURAL FORAMINA: Within the limits of the CT technique, no disc herniation seen. No central canal or neural foraminal stenosis.. PARASPINAL SOFT TISSUES: Unremarkable. OTHER FINDINGS: Unremarkable. IMPRESSION: Unremarkable CT of the thoracic spine.
--- NOTE | 2018-06-28 15:41 | CT ---
Date of service: 06/28/2018 PROCEDURE: CT Lumbar Spine without contrast HISTORY: trauma, include sacrum and coccyx COMPARISON: None available. TECHNIQUE: Axial computed tomography images were obtained of the lumbar spine without the use of intravenous contrast. Coronal and sagittal reformatted images were created and reviewed. Radiation dose: Total exam DLP = 554 mGy-cm. This CT exam was performed using one or more of the following dose reduction techniques: Automated exposure control, adjustment of the mA and/or kV according to patient size, and/or use of iterative reconstruction technique. FINDINGS: VERTEBRAE: Unremarkable. No fracture. Normal alignment. There has been previous fusion with pedicle screws and rods from L5. DISCS/SPINAL CANAL/NEURAL FORAMINA: L1-2: Unremarkable. L2-3: Unremarkable. L3-4: Laminectomy. L4-5: There is mild anterior subluxation of L4 over L5. L5-S1: There is disc degeneration at L5-S1. PARASPINAL SOFT TISSUES: Unremarkable. OTHER FINDINGS: There is a transverse screw through the sacrum and iliac bones IMPRESSION: Status post fusion L3 through L5. No acute findings
--- NOTE | 2018-06-28 15:53 | CT ---
Date of service: 06/28/2018 PROCEDURE: CT Chest, Abdomen and Pelvis with intravenous contrast HISTORY: trauma COMPARISON: None available. TECHNIQUE: IV dose administered: 146 cc of Omni 350 Radiation dose: Total exam DLP = 567 mGy-cm. This CT exam was performed using one or more of the following dose reduction techniques: Automated exposure control, adjustment of the mA and/or kV according to patient size, and/or use of iterative reconstruction technique. FINDINGS: CT CHEST WITH CONTRAST: LUNGS: Emphysematous changes are seen in both lungs. MEDIASTINUM: Unremarkable. Normal caliber aorta and pulmonary arterial trunk. No aortic dissection. Normal size heart. LYMPH NODES: Unremarkable. PLEURA: Unremarkable. No pneumothorax. No pleural fluid. BONES: Unremarkable. OTHER FINDINGS: None. CT ABDOMEN AND PELVIS: LIVER: Unremarkable. No gross lesion or ductal dilatation. GALLBLADDER AND BILE DUCTS: Unremarkable. PANCREAS: Unremarkable. No gross lesion or ductal dilatation. SPLEEN: Unremarkable. ADRENALS: Unremarkable. No mass. KIDNEYS AND URETERS: Unremarkable. No hydronephrosis. No solid mass. VASCULATURE: Unremarkable. No aortic aneurysm. Caval filter BOWEL: Unremarkable. No obstruction. No gross mural thickening. APPENDIX: Normal appendix. PERITONEUM: Unremarkable. No free fluid. No free air. LYMPH NODES: Unremarkable. No enlarged lymph nodes. BLADDER: Unremarkable. REPRODUCTIVE: Unremarkable. BONES: No acute fracture. OTHER FINDINGS: None. IMPRESSION: No acute findings
== END 2018-06-28 15:00 | disposition home or self-care (01) ==
LOC: ED 10:59
DX: S30.0XXA Contusion of lower back and pelvis, initial encounter (principal); W01.0XXA Fall on same level from slipping, tripping and stumbling without subsequent striking against object, initial encounter; Y92.009 Unspecified place in unspecified non-institutional (private) residence as the place of occurrence of the external cause; I25.10 Atherosclerotic heart disease of native coronary artery without angina pectoris; Z96.641 Presence of right artificial hip joint; Z95.5 Presence of coronary angioplasty implant and graft; Z87.81 Personal history of (healed) traumatic fracture; Z95.2 Presence of prosthetic heart valve
CPT/HCPCS: 70450; 71260; 72125; 72128; 72131; 74177; 80053; 85025; 93005; 96374; 99285; J1885; Q9967

== ENCOUNTER 2018-07-26 11:56 | Inpatient (IN) | payer MEDICARE, OTHER ==
[2018-07-26 11:56] VITALS: BMI 25.4
--- NOTE | 2018-07-26 12:12 | ED PDOC ---
Arrival/HPI - General Historian: Patient - History of Present Illness Narrative History of Present Illness (Text): 07/26/18 12:11 78 y/o female, pmhx including htn/hld/cad with stents/osteoporosis/renal disorder, allergic to narcotics, presents to the Emergency department complai yojana of shortness of breath associated with chest pain since this 10 am morning. Patient informs she was at her routine physical therapy session this morning when she was found to be hypoxic saturating at 87% room air. Simultaneously, patient was found to be bradycardic by her physical therapist with a heart rate in the 50s. Patient was immediately brought to the Emergency department for medical evaluation. Upon arrival, patient informs a "squeezing" chest pain associated with difficulty breathing. Patient informs compliance with her routine aspirin and Plavix this morning but reports she is not any Beta- blockers. Patient denies any other associated somatic complaints. Patient denies any fevers, chills, headache, dizziness, abdominal pain, nausea, vomiting, back pain, neck pain, jaw pain, arm pain or any other complaints. Time/Duration: 1-3 hours Symptom Onset: Gradual Symptom Course: Unchanged Activities at Onset: Light Context: Other (Physical therapy session) Past Medical History - Provider Review Nursing Documentation Reviewed: Yes - Infectious Disease Hx of Infectious Diseases: None - Tetanus Immunization Tetanus Immunization: Unknown - Cardiac Hx Cardiac Disorders: Yes (CAD) Other/Comment: VALVE REPLACEMENT - Pulmonary Hx Respiratory Disorders: Yes Hx Chronic Obstructive Pulmonary Disease (COPD): Yes Hx Pneumonia: Yes - Neurological Hx Neurological Disorder: Yes Hx Dizziness: Yes (VERTIGO) Other/Comment: paralysis 20 yrs ago post fall for 6-8 wks - HEENT Hx HEENT Disorder: No - Renal Hx Renal Disorder: Yes Hx Kidney Stones: Yes - Endocrine/Metabolic Hx Endocrine Disorders: No - Hematological/Oncological Hx Blood Disorders: Yes Other/Comment: blood transfusions - Integumentary Hx Dermatological Disorder: Yes Other/Comment: MULTIPLE BRUISING. - Musculoskeletal/Rheumatological Hx Musculoskeletal Disorders: Yes (LUMBAR SPODYLOSIS,13 ORTHO SX,) Hx Falls: Yes (recent) Hx Unsteady Gait: Yes (WALKER) - Gastrointestinal Hx Gastrointestinal Disorders: Yes Other/Comment: gi bleed - Genitourinary/Gynecological Hx Genitourinary Disorders: Yes Hx Urinary Tract Infection: Yes - Psychiatric Hx Psychophysiologic Disorder: No Hx Substance Use: No - Surgical History Hx Coronary Stent: Yes (7 STENTS) Other/Comment: right ankle pin, right knee fx with pin, carpal tunnel, right hip replacement, vertebrae replacement with 2 screws, 2 rods, 2 artificial verterbrae to cervical spine, and 2 in mid back, left knee. arthoscopic sx - Anesthesia Hx Anesthesia: Yes Hx Anesthesia Reactions: No Hx Malignant Hyperthermia: No - Suicidal Assessment Feels Threatened In Home Enviroment: No Family/Social History - Physician Review Nursing Documentation Reviewed: Yes Family/Social History: Unknown Family HX Smoking Status: Never Smoked Hx Alcohol Use: No Hx Substance Use: No Hx Substance Use Treatment: No Allergies/Home Meds Allergies/Adverse Reactions: Allergies codeine Allergy (Verified 04/25/18 21:13) ANAPHYLAXIS hydromorphone HCl [From Dilaudid] Allergy (Verified 04/25/18 21:13) ANAPHYLAXIS meperidine HCl [From Demerol] Allergy (Verified 04/25/18 21:13) ANAPHYLAXIS Home Medications: Home Meds Medication Instructions Recorded Confirmed Clopidogrel [Plavix] 75 mg PO DAILY 04/18/12 04/25/18 Raloxifene HCl [Evista] 60 mg PO DAILY 04/18/12 04/25/18 Aspirin [Adult Low Dose Aspirin EC] 81 mg PO DAILY 10/18/16 04/25/18 Pantoprazole Sodium [Protonix] 40 mg PO DAILY 10/18/16 04/25/18 Rosuvastatin Calcium [Crestor] 20 mg PO HS 10/18/16 04/25/18 ALPRAZolam [Xanax] 1 mg PO DAILY 10/28/16 04/25/18 Ascorbate Calcium [Vitamin C] 500 mg PO DAILY 10/28/16 04/25/18 Calcium Carbonate/Vitamin D3 1 each PO DAILY 10/28/16 04/25/18 [Calcium 1,000 + D3 Caplet] Folic Acid 1 mg PO DAILY 10/28/16 04/25/18 Levocetirizine Dihydrochloride 5 mg PO DAILY 10/28/16 04/25/18 [Xyzal] Montelukast [Singulair] 10 mg PO DAILY 10/28/16 04/25/18 Multivit,Iron,Min 5/Folic Acid 1 tab PO DAILY 10/28/16 04/25/18 [Strovite Forte Caplet] Oxycodone HCl/Acetaminophen 1 each PO PRN PRN 10/28/16 04/25/18 [Percocet 10-325 mg Tablet] Tolterodine Tartrate [Detrol LA] 4 mg PO DAILY 10/28/16 04/25/18 Albuterol HFA [Ventolin HFA 90 2 puff IH QID PRN 09/02/17 04/25/18 mcg/actuation (8 g)] Benzonatate 200 mg PO TID 09/02/17 04/25/18 Ferrous Sulfate [Feosol] 325 mg PO DAILY 09/02/17 04/25/18 Fluticasone Nasal [Flonase] 1 spr NS HS 09/02/17 04/25/18 Review of Systems - Review of Systems Constitutional: absent: Fatigue, Fevers Eyes: absent: Vision Changes ENT: absent: Hearing Changes Respiratory: SOB. absent: Cough, Sputum, Wheezing Cardiovascular: Chest Pain Gastrointestinal: absent: Abdominal Pain, Diarrhea, Nausea, Vomiting Genitourinary Female: absent: Dysuria, Frequency Musculoskeletal: absent: Arthralgias, Back Pain Skin: absent: Rash, Pruritis Neurological: absent: Headache, Dizziness Psychiatric: absent: Anxiety, Depression Physical Exam Vital Signs Reviewed: Yes Temperature: Afebrile Blood Pressure: Hypotensive Pulse: Regular Respiratory Rate: Other (Hypoxic) Appearance: Positive for: Well-Appearing, Non-Toxic, Comfortable Pain Distress: Mild Mental Status: Positive for: Alert and Oriented X 3 - Systems Exam Head: Present: Atraumatic, Normocephalic Pupils: Present: PERRL Extroacular Muscles: Present: EOMI Conjunctiva: Present: Normal Mouth: Present: Moist Mucous Membranes Neck: Present: Normal Range of Motion Respiratory/Chest: Present: Clear to Auscultation, Good Air Exchange. No: Respiratory Distress, Accessory Muscle Use, Wheezes, Decreased Breath Sounds, Rales, Retracting, Rhonchi, Tachypneic, Tender to Palpation Cardiovascular: Present: Regular Rate and Rhythm, Normal S1, S2, Other (1+ pedal edema noted. ). No: Murmurs Abdomen: No: Tenderness, Distention, Peritoneal Signs, Rebound, Guarding Back: Present: Normal Inspection Upper Extremity: Present: Normal Inspection, Normal ROM, NORMAL PULSES, Neurovascularly Intact, Capillary Refill < 2s. No: Cyanosis, Edema, Deformity Lower Extremity: Present: Normal Inspection. No: Edema Neurological: Present: GCS=15, CN II-XII Intact, Speech Normal, Motor Func Grossly Intact, Gait Normal, Memory Normal Skin: Present: Warm, Dry, Normal Color. No: Rashes Psychiatric: Present: Alert, Oriented x 3, Normal Insight, Normal Concentration Medical Decision Making ED Course and Treatment: 07/26/18 12:34 -Labs -EKG -CXR -Aspirin/morphine/nitro -Observe and reassess 07/26/18 14:15 -EKG: SR @ 50 BPM, 2nd degree Heart Block with 2:1 AV conduction, no ST elevation or depression, no T wave inversion. -Repeated EKG: NSR @ 77 BPM, no ST elevation or depression, no T wave inversion, no heart blocks. -CXR show no active pulmonary disease. COPD. -Labs show no acute findings -Mg within normal limit -Trop within normal limit -BNP within normal limit -Pt. is vitally stable at this time, paging Dr. Mccarthy, pending for call back. 07/26/18 14:32 -I spoke to the PMD Dr. Mccarthy, discussed about the case/labs/radiology result and vital signs, agreed on admission and agreed that this patient is not on any beta blockers, agreed to admit telemetry with inpatient, and place DR. 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 Dr. Mccarthy will continue the care -Case discussed with DR. العلي and agreed on the plan of care/admission. - RAD Interpretation Radiology Orders: Date of service: 07/26/2018 HISTORY: Chest pain and shortness of breath COMPARISON: 04/25/2018. FINDINGS: LUNGS: The lungs are hyperinflated and there is peribronchial thickening with chronic changes in both lungs. No focal consolidation. PLEURA: No pleural effusions or pneumothorax. CARDIOVASCULAR: The heart is normal in size. Atherosclerotic aortic arch calcifications are present. OSSEOUS STRUCTURES: Within normal limits for the patient's age. VISUALIZED UPPER ABDOMEN: Normal. OTHER FINDINGS: None. IMPRESSION: No active pulmonary disease. COPD. Teaching Artist: Radiologist - PA / WET SILK HANGER / Resident Statement MD/DO has reviewed & agrees with the documentation as recorded. - Scribe Statement The provider has reviewed the documentation as recorded by the Scribe Damián Lopez. All medical record entries made by the Carmenibelvira were at my direction and beatriz shepherd dictated by me. I have reviewed the chart and agree that the record accurately reflects my personal performance of the history, physical exam, medical decision making, and the department course for this patient. I have also personally directed, reviewed, and agree with the discharge instructions and disposition. Disposition/Present on Arrival - Present on Arrival Any Indicators Present on Arrival: No History of DVT/PE: No History of Uncontrolled Diabetes: No Urinary Catheter: No History of Decub. Ulcer: No History Surgical Site Infection Following: None - Disposition Have Diagnosis and Disposition been Completed?: Yes Diagnosis: Second-degree heart block, Chest pain, Bradycardia Disposition: HOSPITALIZED Disposition Time: 14:22 Patient Plan: Admission, Telemetry Patient Problems: Current Active Problems Problem Status Onset Chest pain Acute Second-degree heart block Acute Condition: STABLE Discharge Instructions (ExitCare): Chest Pain (ED)
[2018-07-26] MEDS ORDERED: Albuterol-Ipratrop 3 mg / 0.5 (3 ml) UD IH STA ×2 (12:26→18:19)
[2018-07-26 13:11] LABS: BASO # 0.03 K/mm3 (0.0-2.0); BASO % 0.5 % (0.0-3.0); EOS # 0.2 (0.0-0.7); EOS % 2.6 % (1.5-5.0); GRAN # 3.99 (1.4-6.5); GRAN % 69.5 % (50.0-68.0); HEMOGLOBIN 11.9 g/dL (12.0-16.0); LYMPH # 1.3 (1.2-3.4); MEAN CELL VOLUME 88.3 fl (80.0-105.0); MEAN CORPUSCULAR HEMOGLOBIN 28.4 pg (25.0-35.0); MEAN CORPUSCULAR HGB CONC 32.2 g/dl (31.0-37.0); MONO # 0.3 (0.1-0.6); MONO % 5.4 % (1.0-6.0); RBC 4.19 10^6/uL (3.5-6.1); RED CELL DISTRIBUTION WIDTH 13.6 % (11.5-14.5); WHITE BLOOD COUNT 5.7 10^3/uL (4.5-11.0)
[2018-07-26] MEDS ORDERED: Albuterol-Ipratrop 3 mg / 0.5 (3 ml) UD ONE (13:16)
[2018-07-26 13:21] LABS: INR 1.09; PARTIAL THROMBOPLASTIN TIME 29.1 Seconds (25.1-36.5); PROTHROMBIN TIME 12.5 SECONDS (9.4-12.5)
[2018-07-26 13:42] LABS: ALB/GLOB RATIO 1.3 (1.1-1.8); ALBUMIN 4.2 g/dL (3.0-4.8); ALT/SGPT 23 U/L (7-56); AST/SGOT 30 U/L (14-36); BLOOD UREA NITROGEN 15 mg/dL (7-21); CALCIUM 9.6 mg/dL (8.4-10.5); GFR NON-AFRICAN AMERICAN > 60
--- NOTE | 2018-07-26 13:46 | RAD ---
Date of service: 07/26/2018 HISTORY: Chest pain and shortness of breath COMPARISON: 04/25/2018. FINDINGS: LUNGS: The lungs are hyperinflated and there is peribronchial thickening with chronic changes in both lungs. No focal consolidation. PLEURA: No pleural effusions or pneumothorax. CARDIOVASCULAR: The heart is normal in size. Atherosclerotic aortic arch calcifications are present. OSSEOUS STRUCTURES: Within normal limits for the patient's age. VISUALIZED UPPER ABDOMEN: Normal. OTHER FINDINGS: None. IMPRESSION: No active pulmonary disease. COPD.
[2018-07-26 13:48] LABS: B-TYPE NATRIURETIC PEPTIDE 250 pg/mL (0-450); TROPONIN I < 0.01 ng/mL
--- NOTE | 2018-07-26 15:35 | CARD ---
APPROVED REPORT Date of service: 07/26/2018 EKG Measurement Heart [id number] <Conclusion> Sinus rhythm with 2nd degree AV block with 2:1 AV conduction Possible Left atrial enlargement Abnormal ECG
--- NOTE | 2018-07-26 15:35 | CARD ---
APPROVED REPORT Date of service: 07/26/2018 EKG Measurement Heart [id number] <Conclusion> Normal sinus rhythm Normal ECG
[2018-07-26] MEDS ORDERED: DOPamine 400mg/250ml D5W 400 MG/250 ML BAG IV PRN ×2 (18:09→23:39)
[2018-07-26] MEDS ORDERED: Alum-Mag Hydrox-Simethicone Susp (30 mL) PO PRN (20:59)
[2018-07-26] MEDS: Pantoprazole 40 mg EC Tab PO SCH (22:27)
--- NOTE | 2018-07-27 03:29 | CON ---
DATE: 07/26/2018 CARDIOLOGY CONSULTATION REASON FOR CONSULTATION: Cardiac evaluation, high grade AV block, second degree block, history of coronary artery disease, peripheral arterial disease. BRIEF CLINICAL HISTORY: This is a 78 year old female with past medical history significant for coronary artery disease, status post multiple stents in LAD, circumflex, and RCA, came in with complaint of shortness of breath with the patient getting rehab and back pain. Also complained of some sharp stabbing pain, off and on, in the chest. They found the oxygen saturation at the rehab facility to be 7% and the patient found also to have heart rate 50, so the patient was transferred to [facility] with the patient found to be in Mobitz type 2 block, heart rate of 50. The patient denies any chest pain now, denies any palpitation, but feels some shortness of breath every now and then. PAST MEDICAL HISTORY: Significant for coronary artery disease status post multiple stents in the past, multiple PTCAs in the past, last PTCA in 01/2012. History of premature coronary artery disease, hypertension, hyperlipidemia, history of GI bleed, history of multiple endoscopy in the past. RECENT CARDIAC WORKUP: As follows; the patient had a stress test 01/10/2018, that shows ejection fraction 55% 73%, no ischemia, no change from 09/2016. The patient had also echocardiography done in the [facility] dated 01/10/2018, that shows ejection fraction 55% 60%, trace to mild mitral regurgitation, trace to mild aortic regurgitation, systolic pressure 31, dated 01/10/2018. History of multiple stents as mentioned in LAD, circumflex, and RCA, last stent in 2011. CURRENT MEDICATIONS: The patient at home is taking Detrol LA, Singulair 10 mg daily, Crestor 1 tablet daily, Plavix 75 mg daily, and aspirin 81 mg daily. ALLERGIES: ALLERGY TO CODEINE, ALLERGY TO DILAUDID, AND ALLERGY TO DEMEROL. SOCIAL HISTORY: Denies any smoking. Denies any history of alcohol abuse. REVIEW OF SYSTEMS: As per HPI. PHYSICAL EXAMINATION: GENERAL: As follows: Height of the patient 4 feet 10 inches, weight of the patient 122 pounds, body mass index 25.5 kg/m2. EKG on admitting shows Mobitz type 2 block heart rate of 45. VITAL SIGNS: Temperature afebrile, heart rate 50, blood pressure 141/76. HEENT: PERRLA. Extraocular muscles intact. NECK: Supple. No carotid bruit or thyromegaly. CHEST: Clear to auscultation. HEART: S1 and S2 regular. ABDOMEN: Soft. EXTREMITIES: Clubbing and cyanosis negative. LABORATORY WORKUP: As follows: WBC 5.7, hemoglobin 11.9, hematocrit 37, platelet count 205,000. Chemistry shows sodium 141, potassium 4.5, chloride 107, carbon dioxide 26, anion gap of 12, BUN of 15, creatinine 0.8. Troponin 0.01. IMPRESSION: Mobitz type 2 block; bradycardia, asymptomatic, history of coronary artery disease, multiple stents. RECOMMENDATIONS: Start low dose of IV dopamine, lipid profile, TSH, hemoglobin A1c. If the patient still remains bradycardic, possibly may need a pacemaker. Discussed with the patient and tentatively scheduled for 4 p.m. Keep n.p.o. after the breakfast given the benefit of doubt, the patient recovers. If not recovers, we will consider pacemaker. We will discuss with you. Thank you Dr. Mccarthy for providing us an opportunity in taking care of the patient, Ban Baker. Adeola Deshapnde MD
[2018-07-27] MEDS: Pantoprazole 40 mg EC Tab PO SCH (06:06)
[2018-07-27 07:08] LABS: BASO # 0.03 K/mm3 (0.0-2.0); BASO % 0.4 % (0.0-3.0); EOS # 0.2 (0.0-0.7); EOS % 2.5 % (1.5-5.0); GRAN # 6.2 (1.4-6.5); GRAN % 74.1 % (50.0-68.0); HEMOGLOBIN 12.9 g/dL (12.0-16.0); LYMPH # 1.5 (1.2-3.4); LYMPH % 18.2 % (22.0-35.0); MEAN CORPUSCULAR HEMOGLOBIN 28.1 pg (25.0-35.0); MEAN CORPUSCULAR HGB CONC 31.9 g/dl (31.0-37.0); MEAN PLATELET VOLUME 10.6 fl (7.0-11.0); MONO # 0.4 (0.1-0.6); MONO % 4.8 % (1.0-6.0); RBC 4.59 10^6/uL (3.5-6.1); RED CELL DISTRIBUTION WIDTH 13.5 % (11.5-14.5); WHITE BLOOD COUNT 8.4 10^3/uL (4.5-11.0)
[2018-07-27 07:55] LABS: ALB/GLOB RATIO 1.4 (1.1-1.8); ALBUMIN 4.4 g/dL (3.0-4.8); ALT/SGPT 24 U/L (7-56); AST/SGOT 30 U/L (14-36); BLOOD UREA NITROGEN 14 mg/dL (7-21); CALCIUM 9.5 mg/dL (8.4-10.5); GFR NON-AFRICAN AMERICAN > 60; HDL CHOLESTEROL 53 mg/dL (29-60)
[2018-07-27 08:05] LABS: LDL CHOLESTEROL 77 mg/dL (0-129)
[2018-07-27] MEDS ORDERED: Non Formulary Medication (Rosuvastatin Calcium [Crestor] 1 TAB) PO SCH (10:00)
[2018-07-27] MEDS: Tolterodine 4 mg ER Cap PO SCH (10:30)
--- NOTE | 2018-07-27 12:58 | HP ---
DATE OF EXAM: 07/27/2018 HISTORY OF PRESENT ILLNESS: The patient is a 78-year-old female who was feeling in her normal state of health when her in-home physical therapist came to visit. The patient was told that her heart rate is low, pulse ox was also low and therefore the physical therapist strongly suggested the patient present to the emergency room for further evaluation. When she did, she was found to be in Mobitz type 2 heart block and was therefore admitted. The patient is known to have a history of hypertension, coronary artery disease status post PTCA. She has a history of COPD, renal calculi in the distant past, chronic low back pain status post lubna placement in the cervical and thoracic spine. She walks with a walker. She also had pinning in her right ankle status post fracture, pinnings in her right knee status post fracture. She is status post total right hip replacement. She also has carpal tunnel syndrome. She never smoked. She does not drink alcohol. She is known to be ALLERGIC TO CODEINE, HYDROMORPHONE AND MEPERIDINE which had rather severe anaphylactic reactions in the past. MEDICATIONS: At the time admission included Plavix 75 mg once a day, Evista 60 mg once a day, aspirin 81 mg once a day, Protonix 40 mg, Crestor 20 mg, alprazolam 1 mg three times a day as needed, multivitamins, vitamin C, vitamin D, folic acid, she takes Xyzal 5 mg once a day, Singulair 10 mg once a day, oxycodone 10/325 four times a day as needed, Detrol LA 4 mg daily, Ventolin HFA 2 puffs 4 times a day as needed, benzonatate 200 mg three times a day p.r.n. chronic cough, ferrous sulfate 325 mg daily and Flonase nasal spray. REVIEW OF SYSTEMS: Otherwise unremarkable. PHYSICAL EXAMINATION: GENERAL: The patient is awake, alert and oriented. HEENT: The head is atraumatic. Head, eyes, ears, nose and throat are unremarkable. NECK: Supple with no lymphadenopathy. No goiter. LUNGS: Clear to auscultation and percussion. HEART: Regular but bradycardic. No murmurs are appreciated. LUNGS: Clear to auscultation and percussion. ABDOMEN: Soft, nontender with no organomegaly. EXTREMITIES: Free of cyanosis, clubbing or edema. NEUROLOGIC: The patient is awake, alert and oriented with no focal neurological signs. LABORATORY DATA: Show the white blood cell count to be 5.7, hemoglobin and hematocrit are 11.9 and 37.0 respectively, platelet count is 205,000. PT/INR is 1.09. PT/INR is 1.09. Serum chemistry shows sodium 141, potassium 4.4, chloride 107, carbon dioxide is 26, blood urea nitrogen is 15, creatinine is 0.8. Troponins are less than 0.01. Liver enzymes are normal. GFR is greater than 60. DIAGNOSTIC DATA: Chest x-ray shows calcifications present in the aortic arch but there is no active pulmonary disease, it is positive for COPD. EKG showed sinus rhythm with a second-degree AV block with 2:1 AV conduction Mobitz type 2. There is possible left atrial enlargement. Approximately 1 hour later, followup EKG showed regular sinus rhythm. The patient is evaluated by Dr. Deshpande, the aerial applicator pilot. She will be reevaluated in the morning. We are considering permanent pacemaker implant. ADMISSION DIAGNOSIS: Second-degree heart block. Carlos Mccarthy MD [id number]
--- NOTE | 2018-07-27 13:07 | PN ---
DATE: 07/27/2018 DAILY PROGRESS NOTE SUBJECTIVE: The patient is a 78-year-old female with a past medical history positive for hypertension, coronary artery disease, status post PTCA, COPD, chronic low back pain, status post right ankle fracture, right knee fracture, total right hip replacement, back and neck surgery, who ambulates with a walker, who was seen by her physical therapist and found to be hypoxic and bradycardic, was told to present to the emergency room and when she did was found to be in Mobitz type II second-degree heart block. The patient is admitted. She is feeling well. She is asymptomatic. She was evaluated by Dr. Deshpande and we are planning for a permanent pacemaker implant later on today. The patient voices no complaints other than nervousness and anxiety. She is asking to be sure that her Xanax 1 mg is ordered. She also states she was planning a bronchoscopy for her chronic cough with her lining feller blindstitch, Dr. Winn and asked that he be called for consultation, which he was. The patient is otherwise awake, alert and oriented. Her heart sounds are regular. No murmur is appreciated today. Lungs are clear. Abdomen is soft. Extremities are free of cyanosis, clubbing or edema on physical exam. Laboratory studies from this morning show her white blood cell count to be 8.4, hemoglobin and hematocrit are 12.9 and 40.4 respectively, platelet count is 248. Sodium is 141, potassium 5, blood urea nitrogen is 14, creatinine 0.9. Her troponins are negative at 0.01, thyroid-stimulating hormone is normal at 1.11, blood pressure is 126/50, heart rate is 43 and she is afebrile. So the patient will be going for a permanent pacemaker implant later on today. She will be reevaluated in the morning. As mentioned above, Xanax is ordered at the patient's request and consults with Dr. Winn, her lining feller blindstitch is also requested. Carlos Mccarthy MD
--- NOTE | 2018-07-27 13:13 | PN ---
DATE: 07/27/2018 REASON FOR CONSULTATION AND FOLLOWUP: High-grade AV block, Mobitz type 2. SUBJECTIVE: The patient denies any chest pain, shortness of breath, or any palpitation. PHYSICAL EXAMINATION: VITAL SIGNS: Temperature afebrile, heart rate 43, and blood pressure 123/50. HEENT: PERRLA. Extraocular muscles intact. NECK: Supple. No carotid bruit or thyromegaly. CHEST: Clear to auscultation. HEART: S1 and S2, regular. ABDOMEN: Soft. EXTREMITIES: Clubbing, cyanosis negative. LABORATORY DATA: Blood workup as follows: WBC 8.5, hemoglobin 12.9, hematocrit 40.4, and platelet count 245. Chemistry shows sodium 141, potassium 5, chloride 106, carbon dioxide 25, anion gap of 14, BUN 14, and creatinine 0.9. Troponin is 0.01. IMPRESSION: This is a 78-year-old female with past medical history significant for peripheral arterial disease, coronary artery disease, status post multiple stents, admitted with sharp pain. So far, no evidence of acute myocardial infarction. High-grade atrioventricular block, on dopamine. Now, the patient is not on beta-damien. RECOMMENDATIONS: Continue dopamine. TSH is 1.1. We suggest pacemaker. The patient is scheduled for pacemaker at 4:00 p.m. The patient is hesitant. Explained to the patient, we will follow and possible pacemaker at 4:00 p.m. The patient is n.p.o. for pacemaker at 4:00 p.m. Adeola Deshpande MD
[2018-07-27] MEDS ORDERED: Lidocaine 2% Inj (20ml) ONE (15:42)
[2018-07-27] MEDS: MethylPREDNISolone 40 mg Vial IVP SCH ×2 (15:46→22:15)
[2018-07-27] MEDS ORDERED: Albuterol-Ipratrop 3 mg / 0.5 (3 ml) UD IH STA (15:55)
[2018-07-27] MEDS ORDERED: Midazolam 2 MG/2 ML VIAL ONE ×2 (16:10→16:25)
[2018-07-27] MEDS ORDERED: Sodium Chloride 0.9% 1,000 ML IV SCH (17:30)
--- NOTE | 2018-07-27 18:02 | CARD ---
APPROVED REPORT Date of service: 07/27/2018 HISTORY The Patient is a 78 year-old female with a history of CAD S/p PTCA admitted with High grade AV Block, Mobitz type -II PROCEDURES Insertion Single Chamber Ventricle Pacemaker INDICATIONS High grade AV Block, Mobitz Type _ II Bradycardia CONSCIOUS SEDATION AGENTS Versed IMPLANTED DEVICES Medtronic 5076 - 52cm, Ventricular Lead MRI Safe Medtronic REYES XT SR MRI safe OPERATIVE NOTE The patient was brought to the Cardiac Catheterization Laboratory in a fasting state and was prepped and draped in a sterile manner. The left subclavian region was infiltrated with 2% Lidocaine, subcutaneous anesthesia. A transverse incision was made in the left subclavicular area. The subcutaneous pocket was formed via blunt dissection, Percutaneous venous access was achieved and an introducer sheath was inserted into the Lt Subclavian vein. Through the introducer sheath, the ventricular lead wire was postitioned in the right ventricular apex utilizing fluoroscopic guidance. The ventricular was advanced over the wire under fluoroscopic guidance and positioned in the right ventricle. Capturing and sensing thresholds were verified. THE VENTRICULAR ELECTRODE PARAMETERS R WAVE 12 THRESHOLD0.5 RESISTANCE 1100 The ventricular lead was then secured using Silk 0. The subcutaneous pocket was irrigated with Betadine. The ventricular lead was attached to the appropriate receptacle on the pulse generator and set screws firmly tightened to insure adequate contact and stability. The lead and pulse generator were placed into the subcutaneous pocket. Sharp and sponge counts were confirmed to be correct. At this time the pocket was closed subcutaneously with a Vicryl 2.0 and the skin was closed with a Vicryl 4.0 .The operative site was dressed in sterile fashion. The patient tolerated the procedure well and was transferred to the floor in stable condition. COMPLICATIONS The patient tolerated the procedure well and there were no complications associated with the procedure. CONCLUSION Successful Implantation of MRI safe, VVIR ( Medtronic REYES XT SR). CC; Santino Mccarthy / Krista.
--- NOTE | 2018-07-27 18:58 | RAD ---
Date of service: 07/27/2018 HISTORY: Post Pacemaker COMPARISON: 07/26/2018 FINDINGS: LUNGS: No active pulmonary disease. PLEURA: No significant pleural effusion identified, no pneumothorax apparent. CARDIOVASCULAR: Atherosclerotic calcifications identified primarily aortic arch. Position/ configuration of pacemaker No radiographic findings to suggest acute or significant cardiovascular disease. OSSEOUS STRUCTURES: No significant abnormalities. VISUALIZED UPPER ABDOMEN: Normal. OTHER FINDINGS: None. IMPRESSION: No adverse findings following pacemaker insertion. No active pulmonary disease or interval change.
[2018-07-27 21:40] LABS: BASO # 0.01 K/mm3 (0.0-2.0); BASO % 0.1 % (0.0-3.0); EOS % 0.1 % (1.5-5.0); GRAN # 11.35 (1.4-6.5); GRAN % 95.1 % (50.0-68.0); HEMOGLOBIN 12.5 g/dL (12.0-16.0); LYMPH # 0.5 (1.2-3.4); LYMPH % 3.9 % (22.0-35.0); MEAN CORPUSCULAR HEMOGLOBIN 28.9 pg (25.0-35.0); MEAN CORPUSCULAR HGB CONC 32.9 g/dl (31.0-37.0); MEAN PLATELET VOLUME 10.1 fl (7.0-11.0); MONO # 0.1 (0.1-0.6); MONO % 0.8 % (1.0-6.0); PLATELET COUNT 200 10^3/uL (120.0-450.0); RBC 4.32 10^6/uL (3.5-6.1); RED CELL DISTRIBUTION WIDTH 13.4 % (11.5-14.5); WHITE BLOOD COUNT 11.9 10^3/uL (4.5-11.0)
[2018-07-27] MEDS: Albuterol-Ipratrop 3 mg / 0.5 (3 ml) UD IH SCH (21:48)
[2018-07-27 22:07] LABS: BAND 1 % (0-2); LYMPHOCYTE 3 % (22.0-35.0); NEUTROPHIL 96 % (50.0-70.0); PLATELET ESTIMATE NORMAL (NORMAL)
[2018-07-28] MEDS: Albuterol-Ipratrop 3 mg / 0.5 (3 ml) UD IH SCH ×4 (02:00→22:24)
--- NOTE | 2018-07-28 02:35 | CON ---
DATE: 07/27/2018 REASON FOR CONSULT: Chronic obstructive lung disease, cough and shortness of breath. HISTORY OF PRESENT ILLNESS: This is a 78-year-old female with a known history of chronic obstructive lung disease, also has degenerative joint disease, coronary artery disease, history of multiple coronary stents, hypertension, hyperlipidemia, history of GI bleed in the past, comes into emergency room with burning type of chest pain, shortness of breath, cough, mostly dry. No hemoptysis or emesis, hematuria, no diarrhea reported. Found to be in a cardiac arrhythmia with bradycardia, scheduled for cardiac pacemaker today. The patient seen in engineer geophysical laboratory. Does have a cough. No sputum production. No nausea, no vomiting, no diarrhea. PAST MEDICAL HISTORY: As per history of present illness. ALLERGIES: TO CODEINE, DILAUDID AND MORPHINE. SOCIAL HISTORY: Stopped smoking many years ago. Denies any alcohol use. FAMILY HISTORY: No significant cardiopulmonary disease reported. MEDICATIONS: She is on Ambien 5 mg at bedtime p.r.n., Detrol LA 4 mg daily, DuoNeb every 6 hours, Ecotrin 81 mg daily, Keflex 250 mg three times a day, Lipitor 8 mg daily, Plavix 75 mg daily, Protonix 40 mg daily, Tylenol p.r.n., Xanax 1 mg three times a day p.r.n., Zofran p.r.n. basis. REVIEW OF SYSTEMS: No headache, no rhinitis. Has cough, shortness of breath. Not much sputum production, burning or chest discomfort. No nausea or abdominal pain. No dysuria, leg pain or leg swelling. PHYSICAL EXAMINATION: GENERAL: Mild distress and cough and shortness of breath. VITAL SIGNS: Temperature is 98, heart rate 60, respiratory is 20, blood pressure 126/62, pulse ox 97%, 2 liters cannula. HEENT: Moist mucous membranes. NECK: Supple. No JVD. LUNGS: Has a poor airflow with prolonged expiratory phase and wheezing. HEART: S1 and S2. ABDOMEN: Soft, nontender, no organomegaly. EXTREMITIES: No edema. NEUROLOGIC: Awake, alert and follows simple commands. LABORATORY DATA: Shows hemoglobin 12.9, hematocrit 40.4, WBC 8.4, platelet is 245,000. INR 1.09. PTT 29. Sodium 141, potassium 5.0, chloride 107, bicarbonate 25, BUN 14, creatinine 0.9, glucose 104, calcium 9.5, magnesium 2.3, AST 30, ALT 24, alk phos is 69. Albumin is 4.4. Cholesterol is 137. TSH is 1.1. DIAGNOSTIC DATA: She had a chest x-ray done today, shows no adverse finding allowing pacemaker insertion, no active pulmonary disease. IMPRESSION AND PLAN: Chronic obstructive lung disease, coronary artery disease, history of multiple coronary disease, cardiac arrhythmia, bradycardic, pacemaker is being placed today, hyperlipidemia. Added Solu-Medrol 40 mg every 12 hours. Inhaled bronchodilators, Singulair 10 mg at bedtime. Will need further workup including PFT as outpatient. Thank you and we will follow with you. Adeola Winn MD
[2018-07-28] MEDS: MethylPREDNISolone 40 mg Vial IVP SCH ×3 (05:03→23:11)
[2018-07-28] MEDS: Pantoprazole 40 mg EC Tab PO SCH (06:00)
[2018-07-28] MEDS: Tolterodine 4 mg ER Cap PO SCH (09:11)
--- NOTE | 2018-07-28 09:40 | CARD ---
APPROVED REPORT Date of service: 07/27/2018 EKG Measurement Heart [id number] P69 [id number] <Conclusion> Electronic ventricular pacemaker
--- NOTE | 2018-07-28 10:27 | PN ---
DATE: 07/28/2018 SUBJECTIVE: The patient is a 78-year-old female with a past medical history positive for hypertension, coronary artery disease status post PTCA, history of COPD, chronic low back pain, status post ankle fracture, knee fracture, status post total right hip replacement, back and neck surgery. She ambulates with a walker. She was admitted with bradycardia, found to be in Mobitz type 2 second-degree heart block. She underwent implantation of a permanent pacemaker with Dr. Deshpande. Of note is the pacemaker is safe to undergo MRI studies with this new type pacemaker. The patient tolerated the procedure well. Her two way radio technician has shown paced rhythm since it was implanted. There is some problem with oozing and hematoma as the patient was on aspirin and Plavix up to the time of her hospitalization. At the patient's request, she was seen by Dr. Winn, her electrical accessories assembler. He started on intravenous Solu-Medrol and his consult is appreciated. When seen today, the patient is resting comfortably. She is easily aroused. She is awake, alert and oriented. She has no complaints. She is however concerned about the pressure dressing over the site of the pacemaker implant. I discussed with the nursing staff the wound is not oozing, however, there is still a hematoma at the site of the pacemaker implant. She is to be reevaluated by Dr. Deshpande later this afternoon. Her white blood cell count is 11.9 yesterday evening and this is status post two doses of intravenous Solu-Medrol as ordered by Dr. Winn. The remainder of her CBC and chemistries are acceptable. The patient is concerned about her wound. She lives alone. However, tomorrow her daughter will be with her to assist in any dressing changes that may be needed. The patient is to be reevaluated in the morning and hopefully discharged at that time. Carlos Mccarthy MD
--- NOTE | 2018-07-28 14:26 | PN ---
DATE: 07/28/2018 REASON FOR CONSULTATION AND FOLLOWUP: Status post pacemaker for high-grade AV block, hematoma at the pacemaker site. SUBJECTIVE: The patient denies any chest pain, shortness of breath, or any palpitation. PHYSICAL EXAMINATION: GENERAL: Not in apparent distress. VITAL SIGNS: Temperature afebrile, heart rate 60, blood pressure 106/48. HEENT: PERRLA. Extraocular muscles intact. NECK: Supple. No carotid bruits or thyromegaly. CHEST: Clear to auscultation. HEART: S1 and S2, regular. ABDOMEN: Soft. EXTREMITIES: Clubbing cyanosis negative. LABORATORY DATA: WBC 11.6, hemoglobin 12.5, hematocrit 38, and platelet count 200. Chemistry shows sodium 141, potassium 5, chloride 106, carbon dioxide 25, anion gap of 14, BUN 14, and creatinine 0.7. IMPRESSION: This is a 78-year-old female with past medical history significant for coronary artery disease, status post multiple stents, admitted with high-grade atrioventricular block. Yesterday, the patient underwent pacemaker implantation. Last night, the patient developed hematoma. A pressure bandage is applied. Repeat CBC done, hemoglobin repeat showed 12.5. No significant drop, baseline was 12.5. Today, the dressing changed and put a Band-Aid. Repeat CBC in the morning. The patient is stable. We will follow with you. Thank you, Dr. Mccarthy, for providing us an opportunity in taking care of the patient, Ban Baker. Adeola Deshpande MD [place]
--- NOTE | 2018-07-28 20:18 | PN ---
DATE: 07/28/2018 PULMONARY PROGRESS NOTE REFERRING PHYSICIAN: Dr. Mccarthy. SUBJECTIVE: She is sitting in the bed. Feels better than yesterday. Still has a cough, some tenderness on pacemaker area. No nausea, vomiting, or diarrhea. No leg pain or leg swelling. PHYSICAL EXAMINATION: GENERAL: In no acute distress. VITAL SIGNS: Temperature is 98, heart rate is 85, respiratory rate is 20, blood pressure 108/60, pulse ox 98% on nasal cannula. At room air, pulse ox is 85%. HEENT: Moist mucous membranes. Crowded airway. NECK: Supple. No JVD. LUNGS: Have a prolonged expiratory phase with few rhonchi. HEART: S1 and S2. CHEST: Left chest has a pacemaker, some air pocket is palpable. ABDOMEN: Soft, nontender, no organomegaly. EXTREMITIES: No edema. NEUROLOGIC: Awake, alert, and follows simple commands. MEDICATIONS: She is on Ambien 5 mg at bedtime p.r.n., Detrol LA 4 mg daily, DuoNeb every 6 hours, Ecotrin 81 mg daily, Keflex 250 mg three times a day, Lipitor 80 mg daily, Maalox p.r.n. basis, Plavix 75 mg daily, Protonix 40 mg daily, Singulair 10 mg daily, Solu-Medrol 40 mg every 8 hours, Tylenol p.r.n., Xanax 1 mg three times a day p.r.n., and Zofran p.r.n. basis. LABORATORY DATA: Shows no new lab is available since yesterday. Yesterday, chest x-ray shows left-sided pacemaker. IMPRESSION AND PLAN: Chronic obstructive lung disease, coronary artery disease, history of multiple coronary stents, cardiac arrhythmia, bradycardia requiring pacemaker, hyperlipidemia, has some air pocket on the pacemaker site. Pulmonary point of view, improved. O2 nunu is about 86%. May need supplemental oxygen upon discharge as outpatient. We will do PFT as an outpatient. Consider sleep study as an outpatient. Thank you and we will follow with you. Adeola Winn MD
[2018-07-29] MEDS: Albuterol-Ipratrop 3 mg / 0.5 (3 ml) UD IH SCH ×4 (02:55→20:49)
[2018-07-29] MEDS: MethylPREDNISolone 40 mg Vial IVP SCH ×3 (06:41→21:32)
[2018-07-29] MEDS: Pantoprazole 40 mg EC Tab PO SCH (06:42)
[2018-07-29 07:38] LABS: GRAN # 10.51 (1.4-6.5); GRAN % 93.6 % (50.0-68.0); HEMOGLOBIN 10.7 g/dL (12.0-16.0); LYMPH # 0.5 (1.2-3.4); LYMPH % 4.4 % (22.0-35.0); MEAN CORPUSCULAR HEMOGLOBIN 27.9 pg (25.0-35.0); MEAN CORPUSCULAR HGB CONC 31.8 g/dl (31.0-37.0); MEAN PLATELET VOLUME 10.7 fl (7.0-11.0); MONO # 0.2 (0.1-0.6); RBC 3.83 10^6/uL (3.5-6.1); RED CELL DISTRIBUTION WIDTH 13.5 % (11.5-14.5); WHITE BLOOD COUNT 11.2 10^3/uL (4.5-11.0)
[2018-07-29 07:46] LABS: BLOOD UREA NITROGEN 28 mg/dL (7-21); CALCIUM 8.8 mg/dL (8.4-10.5); GFR NON-AFRICAN AMERICAN > 60
[2018-07-29] MEDS: Tolterodine 4 mg ER Cap PO SCH (09:24)
--- NOTE | 2018-07-29 12:19 | RAD ---
Date of service: 07/29/2018 HISTORY: Status post pacemaker insertion COMPARISON: 07/27/2018 TECHNIQUE: Chest PA and lateral FINDINGS: LINES AND TUBES: None. LUNG AND PLEURA: There pulmonary hyperinflation. There is interstitial thickening in the lower lobes likely related to interstitial fibrosis. No pleural effusion or pneumothorax. HEART AND MEDIASTINUM: The heart is normal in size. There is stable position of left-sided unipolar permanent pacing device. Aortic atherosclerotic calcification present. The hilar and mediastinal contours are within normal limits. SKELETAL STRUCTURES: The bony structures are within normal limits for the patient's age. Postsurgical changes in the lower cervical spine and lumbar spine. An IVC filter is visualized. VISUALIZED UPPER ABDOMEN: Normal. OTHER FINDINGS: None. IMPRESSION: No active pulmonary disease. Stable position of left-sided unipolar permanent pacing device.
[2018-07-29] MEDS: Benzocaine/Menthol (Cepacol) Lozenge MT SCH ×2 (20:18→23:45)
--- NOTE | 2018-07-29 21:35 | PN ---
DATE: 07/29/2018 PULMONARY PROGRESS NOTE REFERRING PHYSICIAN: Dr. Mccarthy SUBJECTIVE: She is sitting up in the bed, still has some cough. No chest pain. No nausea. Does have a significant nocturnal GERD. Ecchymotic area at the pacemaker site. No abdominal pain. No dysuria. No leg pain, no leg swelling. OBJECTIVE: GENERAL: In no acute distress. VITAL SIGNS: Temperature is 98, heart rate 80, respiratory rate is 18, blood pressure 126/66, pulse ox 95% on nasal cannula. HEENT: Moist mucous membrane. Crowded airway. NECK: Supple. No JVD. LUNGS: Prolonged expiratory phase with few rhonchi. HEART: S1, S2. Pacemaker site has a ecchymotic area. ABDOMEN: Soft, nontender. No organomegaly. EXTREMITIES: No edema. NEUROLOGIC: Awake, alert, follows simple commands. MEDICATIONS: She is on Ambien 5 mg at bedtime p.r.n., Detrol LA 4 mg daily, DuoNeb every 6 hours, Ecotrin 81 mg daily, Keflex 250 mg 3 times a day, Lipitor 80 mg daily, Maalox every 2 hours p.r.n., Plavix 75 mg daily, Protonix 40 mg at bedtime, Singulair 10 mg daily, Solu-Medrol 40 mg every 8 hours, Xanax 1 mg three times a day p.r.n., and Zofran p.r.n. basis. LABORATORY DATA: Shows hemoglobin 10.7, hematocrit 33.7, WBC 11.2, platelet count is 165. Sodium 137, potassium 5, chloride 108, bicarbonate 24, BUN 28, creatinine 0.8, glucose is 121, calcium is 8.8. TSH 1.1. Chest x-ray done this afternoon shows stable position of left-sided unipolar pulmonary pacemaker device. IMPRESSION AND PLAN: Bradycardia requiring pacemaker, chronic obstructive lung disease, coronary artery disease, history of multiple coronary stents, hyperlipidemia, may have sleep apnea syndrome and gastroesophageal reflux disease, already on Protonix at bedtime. We will add Reglan only for 2 to 3 days and see how she feels. May add Cepacol lozenges. Keep head elevated at 45 degrees. Gastroesophageal reflux disease precaution. Had hemoglobin drop about 2 g or so. We will start her on supplement iron. Follow up labs in the morning. Thank you and we will follow with you. Adeola Winn MD
[2018-07-30] MEDS: Albuterol-Ipratrop 3 mg / 0.5 (3 ml) UD IH SCH ×2 (01:22→08:03)
[2018-07-30 06:14] VITALS: O2SAT 95
[2018-07-30] MEDS: Benzocaine/Menthol (Cepacol) Lozenge MT SCH ×3 (06:16→11:15)
[2018-07-30] MEDS: Pantoprazole 40 mg EC Tab PO SCH (06:18)
[2018-07-30] MEDS: MethylPREDNISolone 40 mg Vial IVP SCH (06:18)
[2018-07-30 07:02] LABS: HEMOGLOBIN 10.7 g/dL (12.0-16.0); MEAN CORPUSCULAR HEMOGLOBIN 27.9 pg (25.0-35.0); MEAN CORPUSCULAR HGB CONC 31.4 g/dl (31.0-37.0); MEAN PLATELET VOLUME 10.4 fl (7.0-11.0); RBC 3.83 10^6/uL (3.5-6.1); RED CELL DISTRIBUTION WIDTH 13.7 % (11.5-14.5); WHITE BLOOD COUNT 8.8 10^3/uL (4.5-11.0)
--- NOTE | 2018-07-30 08:17 | CPOSTOP ---
DATE: 07/27/2018 PRODUCER ARBORIST MANAGER: Cris Mckeon, emergency medical technician basic. TYPE OF ANESTHESIA: Moderate conscious sedation. Total 3 mg of Versed given. Periodically started 1 mg of Versed. PREPROCEDURE DIAGNOSIS: High-grade atrioventricular block Mobitz type 2. PROCEDURE PERFORMED: Implantation of permanent pacemaker. FINDINGS: High-grade AV block. FINAL DIAGNOSIS: High-grade AV block, pacemaker dependent. POSTPROCEDURE CONDITION: Postprocedure, the patient's condition is stable. VASCULAR ACCESS SITE: Left subclavian vein. CLOSURE DEVICE: Dermabond and surgical suture. TOTAL RADIATION DOSE: 114.2 milligray unit. TOTAL FLUORO TIME: 4.3 minutes. Adeola Deshpande MD
[2018-07-30] MEDS: Tolterodine 4 mg ER Cap PO SCH (09:48)
[2018-07-30 12:03] VITALS: BP 139/67; PULSE 59; RESP 20; TEMP 98.3
--- NOTE | 2018-07-30 17:22 | PN ---
DATE: 07/30/2018 REASON FOR CONSULTATION AND FOLLOWUP: Status post pacemaker for high-grade AV block, resolving hematoma at the pacemaker site. SUBJECTIVE: The patient denies any chest pain, shortness of breath, or any palpation. Wanted to go home. PHYSICAL EXAMINATION: GENERAL: Not in apparent distress. VITAL SIGNS: Temperature afebrile, heart rate 84, blood pressure 135/67. HEENT: PERRLA. Extraocular muscles intact. NECK: Supple. No carotid bruits or thyromegaly. CHEST: Clear to auscultation. HEART: S1 and S2, regular. ABDOMEN: Soft. EXTREMITIES: Clubbing and cyanosis negative. BLOOD WORKUP: As follows; WBC 8.8, hemoglobin 10.7, hematocrit 34.1,and platelet count 150. Chemistry showed sodium 137, potassium 5, chloride , carbon dioxide 24, anion gap 15, BUN 28, and creatinine 0.8. IMPRESSION: This is a 78-year-old female with past medical history significant for coronary artery disease with multiple stents, last stent in 2012, admitted with high-grade atrioventricular block status post pacemaker was done. Post pacemaker, the patient developed hematoma if bandage is applied. Now it is bruised, but hematoma resolving. Indra bandage was removed and bandage applied. Repeat CBC stable at 10.7. Denies any chest pain, shortness of breath or any palpitation. History of chronic obstructive pulmonary disease, was wheezing. Still the patient had some shortness of breath secondary to chronic obstructive pulmonary disease exacerbation, on intravenous steroid. RECOMMENDATIONS: Continue aspirin. Continue Plavix. Continue Keflex for five days. Continue atorvastatin. We will discontinue telemetry. Repeat EKG on 07/27/2018 shows V-paced rhythm. Probably high upper end of potassium is normal because of the steroid. We will put ice pack on this cool compression on the chest for next 24 hours. We will repeat lab in the morning. Repeat chest x-ray was normal. Thank you, Dr. Mccarthy, for providing us opportunity in taking care of the patient, Olivia Cevallos. Adeola Deshpande MD
--- NOTE | 2018-07-30 21:12 | PN ---
DATE: 07/30/2018 PULMONARY PROGRESS NOTE REFERRING PHYSICIAN: Dr. Mccarthy. SUBJECTIVE: He is sitting up in a chair, being discharged home today, and feels better. Decrease cough. No nausea. No vomiting. No diarrhea, leg pain or leg swelling. Has a large ecchymotic area in the pacemaker area. OBJECTIVE: GENERAL: In no acute distress. VITAL SIGNS: Temperature is 98, heart rate is , respiratory rate is 20, blood pressure 139/67, and pulse ox 95% on 3 L nasal cannula. HEENT: Moist mucous membranes. No ulcer or thrush noted. Crowded airway. LUNGS: Has a prolonged expiratory phase. No wheezing. HEART: S1 and S2. Has an ecchymotic area at the pacemaker area. ABDOMEN: Soft and nontender. No organomegaly; EXTREMITIES: There is no edema. NEUROLOGIC: Awake, alert, and follows simple command. MEDICATIONS: Reviewed and noted. No new change in medication reported since yesterday. LABORATORY DATA: Reviewed and show hemoglobin 10.7, hematocrit 34.1, WBC 8.8, platelet count is 150,000. Chest x-ray done yesterday shows no active pulmonary disease, stable position of left-sided unipolar pacemaker. IMPRESSION AND PLAN: Admitted with bradycardia, requiring pacemaker; chronic obstructive lung disease, also has a chronic obstructive pulmonary disease exacerbation, requiring steroids and inhaled bronchodilator, antibiotics, also has a gastroesophageal reflux disease, suspected sleep apnea syndrome. Gastroesophageal reflux disease precaution, Protonix 40 mg at bedtime. Pulmonary function test as an outpatient. We recommend attended sleep study upon discharge as outpatient. Inhaled bronchodilator. Thank you and we will follow with you. Adeloa Winn MD
== END 2018-07-30 13:14 | disposition home or self-care (01) | DRG 243 ==
LOC: ED 11:56 → ERH 14:29 → 2RNO 16:09
PROVIDERS: ADMIT Internal Medicine; ATTEND Internal Medicine
PROC: 0JH604Z Insertion of Pacemaker, Single Chamber into Chest Subcutaneous Tissue and Fascia, Open Approach (ICD-10-PCS; principal; 2018-07-27)
PROC: 02HK3JZ Insertion of Pacemaker Lead into Right Ventricle, Percutaneous Approach (ICD-10-PCS; 2018-07-27)
DX: I44.1 Atrioventricular block, second degree (principal); L76.32 Postprocedural hematoma of skin and subcutaneous tissue following other procedure; J44.1 Chronic obstructive pulmonary disease with (acute) exacerbation; I10 Essential (primary) hypertension; R09.02 Hypoxemia; I25.10 Atherosclerotic heart disease of native coronary artery without angina pectoris; I73.9 Peripheral vascular disease, unspecified; K21.9 Gastro-esophageal reflux disease without esophagitis; M81.0 Age-related osteoporosis without current pathological fracture; E78.5 Hyperlipidemia, unspecified; Y83.1 Surgical operation with implant of artificial internal device as the cause of abnormal reaction of the patient, or of later complication, without mention of misadventure at the time of the procedure; Z79.02 Long term (current) use of antithrombotics/antiplatelets; Z79.82 Long term (current) use of aspirin; Z79.899 Other long term (current) drug therapy; Z95.5 Presence of coronary angioplasty implant and graft; Z95.2 Presence of prosthetic heart valve; Z87.891 Personal history of nicotine dependence; Z88.5 Allergy status to narcotic agent

== ENCOUNTER 2018-09-16 15:47 | Inpatient (IN) | payer MEDICARE, OTHER ==
[2018-09-16 15:48] VITALS: BMI 25.4
--- NOTE | 2018-09-16 16:08 | ED PDOC ---
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 Patient notes she slipped after getting out the shower and fell on her but t. Patient denies any fever, chills, chest pain, shortness of breath, nausea, vomiting, diarrhea, neck pain, headache, dizziness, or any other complaints. PMD: Dr. Mccarthy Cardio: Dr. Deshpande Time/Duration: Prior to Arrival Symptom Onset: Sudden Symptom Course: Unchanged Activities at Onset: Light Context: Home Past Medical History - Provider Review Nursing Documentation Reviewed: Yes - Infectious Disease Hx of Infectious Diseases: None - Tetanus Immunization Tetanus Immunization: Unknown - Reproductive Menopause: Yes - Cardiac Hx Cardiac Disorders: Yes (CAD) Other/Comment: VALVE REPLACEMENT - Pulmonary Hx Respiratory Disorders: Yes Hx Chronic Obstructive Pulmonary Disease (COPD): Yes Hx Pneumonia: Yes - Neurological Hx Neurological Disorder: Yes Hx Dizziness: Yes (VERTIGO) Other/Comment: paralysis 20 yrs ago post fall for 6-8 wks - HEENT Hx HEENT Disorder: No - Renal Hx Renal Disorder: Yes Hx Kidney Stones: Yes - Endocrine/Metabolic Hx Endocrine Disorders: No - Hematological/Oncological Hx Blood Transfusions: No Hx Blood Transfusion Reaction: No - Integumentary Hx Dermatological Disorder: Yes Other/Comment: MULTIPLE BRUISING. - Musculoskeletal/Rheumatological Hx Falls: Yes - Gastrointestinal Hx Gastrointestinal Disorders: Yes Other/Comment: gi bleed - Genitourinary/Gynecological Hx Genitourinary Disorders: Yes Hx Urinary Tract Infection: Yes - Psychiatric Hx Psychophysiologic Disorder: No Hx Substance Use: No - Surgical History Hx Coronary Stent: Yes (7 STENTS) Other/Comment: right ankle pin, right knee fx with pin, carpal tunnel, right hip replacement, vertebrae replacement with 2 screws, 2 rods, 2 artificial verterbrae to cervical spine, and 2 in mid back, left knee. arthoscopic sx - Anesthesia Hx Anesthesia Reactions: No Hx Malignant Hyperthermia: No - Suicidal Assessment Feels Threatened In Home Enviroment: No Family/Social History - Physician Review Nursing Documentation Reviewed: Yes Family/Social History: Unknown Family HX Smoking Status: Heavy Smoker > 10 Cigarettes Daily Hx Alcohol Use: No Hx Substance Use: No Hx Substance Use Treatment: No Allergies/Home Meds Allergies/Adverse Reactions: Allergies codeine Allergy (Verified 07/26/18 15:29) ANAPHYLAXIS hydromorphone HCl [From Dilaudid] Allergy (Verified 07/26/18 15:29) ANAPHYLAXIS meperidine HCl [From Demerol] Allergy (Verified 07/26/18 15:29) ANAPHYLAXIS Home Medications: Home Meds Medication Instructions Recorded Confirmed Aspirin [Adult Low Dose Aspirin EC] 81 mg PO DAILY 07/26/18 07/30/18 Clopidogrel [Plavix] 75 mg PO DAILY 07/26/18 07/30/18 Montelukast [Singulair] 10 mg PO DAILY 07/26/18 07/30/18 Rosuvastatin Calcium [Crestor] 1 tab PO DAILY 07/26/18 07/26/18 Tolterodine Tartrate [Detrol LA] 4 mg PO DAILY 07/26/18 07/30/18 Review of Systems - Physician Review All systems were reviewed & negative as marked: Yes - Review of Systems Constitutional: Normal Eyes: Normal ENT: Normal Respiratory: Normal. absent: SOB, Cough Cardiovascular: Normal. absent: Chest Pain Gastrointestinal: Normal. absent: Abdominal Pain, Diarrhea, Nausea, Vomiting Genitourinary Female: Normal. absent: Dysuria, Frequency Musculoskeletal: Back Pain (lower back pain), Other (bilateral hip pain) Skin: Normal. absent: Rash Neurological: Normal. absent: Headache, Dizziness Endocrine: Normal Hemo/Lymphatic: Normal Psychiatric: Normal Physical Exam Vital Signs Reviewed: Yes Vital Signs Temp Pulse Resp BP Pulse Ox 09/16/18 16:03 97.8 F 79 18 134/84 99 Temperature: Afebrile Blood Pressure: Normal Pulse: Regular Respiratory Rate: Normal Appearance: Positive for: Well-Appearing, Non-Toxic, Comfortable Pain Distress: None Mental Status: Positive for: Alert and Oriented X 3 - Systems Exam Head: Present: Atraumatic, Normocephalic Pupils: Present: PERRL Extroacular Muscles: Present: EOMI Conjunctiva: Present: Normal Mouth: Present: Moist Mucous Membranes Neck: Present: Normal Range of Motion Respiratory/Chest: Present: Clear to Auscultation, Good Air Exchange. No: Respiratory Distress, Accessory Muscle Use Cardiovascular: Present: Regular Rate and Rhythm, Normal S1, S2. No: Murmurs Abdomen: No: Tenderness, Distention, Peritoneal Signs Back: Present: Other (Lumbar tenderness) Upper Extremity: Present: Normal Inspection. No: Cyanosis, Edema Lower Extremity: Present: Normal Inspection. No: Edema Neurological: Present: GCS=15, CN II-XII Intact, Speech Normal Skin: Present: Warm, Dry, Normal Color. No: Rashes Psychiatric: Present: Alert, Oriented x 3, Normal Insight, Normal Concentration Medical Decision Making ED Course and Treatment: 09/16/18 16:10 Impression: 78 year old female presents to the Emergency department complaining of bilateral hip pain and lower back pain. Plan: -- CT L-Spine -- Tylenol -- Xray Pelvis -- Reassess and disposition Progress Notes: - RAD Interpretation Radiology Orders: 09/16/18 16:04 LUMBAR SPINE W/O CONTRAST [CT] Stat PELVIS ONE VIEW [RAD] Stat - Scribe Statement The provider has reviewed the documentation as recorded by the Scribelvira Vivas All medical record entries made by the Scribe were at my direction and personally dictated by me. I have reviewed the chart and agree that the record accurately reflects my personal performance of the history, physical exam, medical decision making, and the department course for this patient. I have also personally directed, reviewed, and agree with the discharge instructions and disposition. Disposition/Present on Arrival - Present on Arrival History of DVT/PE: No History of Uncontrolled Diabetes: No Urinary Catheter: No History of Decub. Ulcer: No History Surgical Site Infection Following: None - Disposition
--- NOTE | 2018-09-16 17:52 | CT ---
Date of service: 09/16/2018 PROCEDURE: CT Lumbar Spine without contrast HISTORY: fall COMPARISON: 06/28/2018. TECHNIQUE: Axial computed tomography images were obtained of the lumbar spine without the use of intravenous contrast. Coronal and sagittal reformatted images were created and reviewed. Radiation dose: Total exam DLP = 720.19 mGy-cm. This CT exam was performed using one or more of the following dose reduction techniques: Automated exposure control, adjustment of the mA and/or kV according to patient size, and/or use of iterative reconstruction technique. FINDINGS: VERTEBRAE: There is severe diffuse bone demineralization. There is an acute inferior endplate compression fracture in the T12 vertebral body with approximately 30 percent loss of anterior vertebral height. No retropulsion. No acute fracture in the lumbar spine. No spondylolysis. There is degenerative grade 1 anterior listhesis of L4 on L5 and degenerative 5 mm retrolisthesis of L2 on L3. DISCS/SPINAL CANAL/NEURAL FORAMINA: S again seen are postsurgical changes of posterior spinal fixation with transpedicular screws from L3-L5. There is a interconnecting lubna through the sacroiliac joints. No evidence for loosening or screw fracture. There is desiccation of the L5-S1 disc. PARASPINAL SOFT TISSUES: The paraspinous soft tissues are normal. OTHER FINDINGS: An infrarenal IVC filter remains in place. Sigmoid diverticulosis without CT evidence for acute diverticulitis. IMPRESSION: Acute inferior endplate compression fracture in the T12 vertebral body with approximately 30 percent loss of anterior vertebral height. No retropulsion. No other significant interval change since the prior examination.
--- NOTE | 2018-09-16 17:59 | RAD ---
Date of service: 09/16/2018 PROCEDURE: Radiographs of the pelvis. HISTORY: fall COMPARISON: 03/09/2017 FINDINGS: BONES: The pelvic ring is intact. There is no acute displaced fracture or bone destruction. Status post open reduction and internal fixation of left superior pubic ramus fracture. Metallic screws remain in stable position across the sacroiliac joints and left superior pubic ramus. Six status post reduction and internal fixation of left femoral fracture. JOINTS: Status post total right hip arthroplasty. The left hip joint is preserved. Pubic Symphysis: Unremarkable. OTHER FINDINGS: None. IMPRESSION: No acute displaced fracture or dislocation. Stable appearance of hardware.
[2018-09-16 18:55] LABS: BASO # 0.03 K/mm3 (0.0-2.0); BASO % 0.5 % (0.0-3.0); EOS # 0.2 (0.0-0.7); GRAN # 4.42 (1.4-6.5); GRAN % 69.1 % (50.0-68.0); HEMOGLOBIN 12.4 g/dL (12.0-16.0); LYMPH # 1.4 (1.2-3.4); LYMPH % 22.1 % (22.0-35.0); MEAN CORPUSCULAR HEMOGLOBIN 28.1 pg (25.0-35.0); MEAN CORPUSCULAR HGB CONC 31.9 g/dl (31.0-37.0); MONO # 0.3 (0.1-0.6); MONO % 5.3 % (1.0-6.0); RBC 4.42 10^6/uL (3.5-6.1); RED CELL DISTRIBUTION WIDTH 14.2 % (11.5-14.5); WHITE BLOOD COUNT 6.4 10^3/uL (4.5-11.0)
[2018-09-16 18:59] LABS: INR 1.13; PARTIAL THROMBOPLASTIN TIME 28.8 Seconds (25.1-36.5); PROTHROMBIN TIME 12.9 SECONDS (9.4-12.5)
[2018-09-16 19:10] LABS: ALB/GLOB RATIO 1.3 (1.1-1.8); ALBUMIN 4.3 g/dL (3.0-4.8); ALT/SGPT 19 U/L (7-56); AST/SGOT 34 U/L (14-36); BLOOD UREA NITROGEN 10 mg/dL (7-21); CALCIUM 9.5 mg/dL (8.4-10.5); GFR NON-AFRICAN AMERICAN > 60
[2018-09-16] MEDS ORDERED: Oxycodone/Acetaminophen 5/325 mg Tab PO PRN ×2 (19:39→19:51)
--- NOTE | 2018-09-16 21:30 | CP.PCM.PCO ---
Physician Communication Note - Physician Communication Note Physician Communication Note: Nursing Page - [phone] Addendum Addendum: 09/16/18 21:28 Nursing paged resident to inform patient reports she takes ambien to sleep while she is here; and that she was wheezing on presentation Orders from previous admission reviewed; will start Ambien 5mg PO HS No complaints of SOB at this time; Will also start duonebs prn wheezing
[2018-09-16] MEDS: Albuterol-Ipratrop 3 mg / 0.5 (3 ml) UD IH PRN (23:19)
[2018-09-17] MEDS: Albuterol-Ipratrop 3 mg / 0.5 (3 ml) UD IH PRN (07:45)
--- NOTE | 2018-09-17 09:02 | RAD ---
Date of service: 09/16/2018 HISTORY: admission COMPARISON: 07/29/2018 FINDINGS: LUNGS: No active pulmonary disease. PLEURA: No significant pleural effusion identified, no pneumothorax apparent. CARDIOVASCULAR: Aortic calcification Normal cardiac size. No pulmonary vascular congestion. OSSEOUS STRUCTURES: No significant abnormalities. VISUALIZED UPPER ABDOMEN: Normal. OTHER FINDINGS: Single lead pacemaker IMPRESSION: No active disease.
--- NOTE | 2018-09-17 09:26 | CP.PCM.APN ---
Subjective - Date & Time of Evaluation Date of Evaluation: 09/17/18 Time of Evaluation: 09:00 - Subjective Subjective: Pt is seen and examined at bedside. In no acute distress. Denies chest pain or shortness of breath. +tingling sensation on evan lower ext on ambulation. Objective - Vital Signs/Intake and Output Vital Signs (last 24 hours): Temp Pulse Resp BP Pulse Ox 98 F 67 20 138/78 96 09/17/18 06:00 09/17/18 06:00 09/17/18 06:00 09/17/18 06:00 09/17/18 06:00 Intake and Output: 09/17/18 09/17/18 06:59 18:59 Intake Total 120 Balance 120 - Medications Medications: Current Medications Acetaminophen (Tylenol 325mg Tab) 650 mg PO Q4 PRN PRN Reason: Pain, Mild (1-3) Last Admin: 09/17/18 01:21 Dose: 650 mg Albuterol/Ipratropium (Duoneb 3 Mg/0.5 Mg (3 Ml) Ud) 3 ml IH [id number] PRN PRN Reason: Wheezing Last Admin: 09/17/18 07:45 Dose: 3 ml Albuterol/Ipratropium (Duoneb 3 Mg/0.5 Mg (3 Ml) Ud) 3 ml IH [id number] LAMAR Oxycodone/Acetaminophen (Percocet 5/325 Mg Tab) 1 tab PO Q4H PRN PRN Reason: Pain, severe (8-10) Stop: 09/19/18 19:46 Tramadol HCl (Ultram) 50 mg PO Q6H PRN PRN Reason: Pain, moderate (4-7) Last Admin: 09/17/18 04:12 Dose: 50 mg Zolpidem Tartrate (Ambien) 5 mg PO HS PRN; Protocol PRN Reason: Insomnia Last Admin: 09/16/18 23:12 Dose: 5 mg - Labs Labs: 09/16/18 18:37 09/16/18 18:37 PT 12.9 SECONDS (9.4-12.5) H 09/16/18 18:37 INR 1.13 09/16/18 18:37 APTT 28.8 Seconds (25.1-36.5) 09/16/18 18:37 - Constitutional Appears: Well, No Acute Distress - Head Exam Head Exam: ATRAUMATIC - Eye Exam Eye Exam: Normal appearance - ENT Exam ENT Exam: Mucous Membranes Moist - Neck Exam Neck Exam: Full ROM - Respiratory Exam Respiratory Exam: Wheezes - Cardiovascular Exam Cardiovascular Exam: REGULAR RHYTHM, +S1, +S2 - GI/Abdominal Exam GI & Abdominal Exam: Soft, Normal Bowel Sounds - Rectal Exam Rectal Exam: Deferred - Extremities Exam Extremities Exam: Normal Inspection - Neurological Exam Neurological Exam: Alert, Awake, Oriented x3 Assessment and Plan - Assessment and Plan (Free Text) Assessment: Pt is a 78 y.o. 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 She was found to have compression fx at T12. Impressions Lumbar Spine CT 09/16/18 16:04 IMPRESSION: Acute inferior endplate compression fracture in the T12 vertebral body with approximately 30 percent loss of anterior vertebral height. No retropulsion. No other significant interval change since the prior examination. Pelvis X-Ray 09/16/18 16:04 IMPRESSION: No acute displaced fracture or dislocation. Stable appearance of hardware. Chest X-Ray 09/16/18 17:54 IMPRESSION: No active disease. Plan: Dr. Humphrey on consult for possible kypho Pulm on consult Physical therapy eval pending Meds per MAR Will continue to follow BPCI/TIC - BPCIA/TIC Educated pt/family on BPCIA/CIR/Med to Bed Programs: N/A Flyers given, including [facility] Beneficiary letter: N/A Pt/family verbalized understanding & agreed to program: N/A
[2018-09-17] MEDS: Tolterodine 4 mg ER Cap PO SCH (11:03)
[2018-09-17] MEDS: Cholecalciferol 1,000 INTLU TAB PO SCH (11:03)
[2018-09-17] MEDS: Albuterol-Ipratrop 3 mg / 0.5 (3 ml) UD IH SCH ×3 (13:41→22:43)
[2018-09-17] MEDS ORDERED: Benzocaine/Menthol (Cepacol) Lozenge MT PRN (19:28)
[2018-09-17] MEDS ORDERED: Budesonide 0.5 mg/2 ml Inhal Susp UD IH SCH (20:00)
[2018-09-17] MEDS ORDERED: Arformoterol 15 mcg/2 ml Inh Sol IH SCH (20:00)
--- NOTE | 2018-09-17 23:18 | CON ---
DATE: 09/17/2018 PULMONARY CONSULT REFERRING PHYSICIAN: Barak Mccarthy MD REASON FOR CONSULT: Chronic lung disease, cough and shortness of breath, status post fall with vertebral fracture. HISTORY OF PRESENT ILLNESS: This is a 78 years old female with known history of chronic obstructive lung disease, degenerative joint disease, coronary artery disease, history of multiple coronary stents, hypertension, hyperlipidemia, history of GI bleed in the past, complete heart block requiring pacemaker, apparently had a mechanical fall at home with back pain, came in to ER. X-ray was done, seems like has a compression fracture of T12, admitted. Presently sitting up in a chair complaining about back pain. Has cough. No sputum production. No nausea, no diarrhea, leg pain, or leg swelling. PAST MEDICAL HISTORY: As per history of present illness. ALLERGIES: TO CODEINE, DILAUDID, AND MORPHINE. SOCIAL HISTORY: Stopped smoking many years ago. Denied any alcohol use. FAMILY HISTORY: No significant cardiopulmonary disease reported. MEDICATIONS: She is on Ambien 5 mg h.s. p.r.n., calcium carbonate 600 mg twice a day, Detrol LA 4 mg daily, DuoNeb every 4 hours p.r.n. and every 6 hours [id number], Ecotrin 81 mg daily, Lipitor 20 mg daily, Percocet 5/325 one tablet every 4 hours p.r.n., Plavix 75 mg daily, Singulair 10 mg daily, Tylenol p.r.n. basis, Ultram 50 mg every 6 hours p.r.n., vitamin D 1000 International Units daily. REVIEW OF SYSTEMS: No headache, no rhinitis. Has a cough, shortness of breath, mid back pain. No nausea, no diarrhea. No leg pain or leg swelling. PHYSICAL EXAMINATION: GENERAL: Sitting up, with cough and shortness of breath. VITAL SIGNS: Temperature is 98, heart rate 82, respiratory rate is 20, blood pressure 133/75, pulse ox 90% on nasal cannula. HEENT: Moist mucous membrane. Crowded airway. NECK: Supple. No JVD. LUNGS: Has a prolonged expiratory phase with some rhonchi and wheezing. HEART: S1 and S2. ABDOMEN: Soft, nontender. No organomegaly. EXTREMITIES: No edema. NEUROLOGIC: Awake and follows simple commands. LABORATORY DATA: Shows hemoglobin 12.4, hematocrit 38.9, WBC 6.4, platelet count is 209. INR 1.13, PTT 29. Sodium 141, potassium 4.5, chloride 108, bicarbonate 27, BUN 10, creatinine 0.7, calcium is 9.5, AST 34, ALT 19, alk phos is 66. Albumin is 4.3. TSH 1.11. Chest x-ray done on admission shows no active pulmonary disease. Has a CT of the lumbar spine done, which shows acute inferior endplate compression fracture in the T12 vertebral body with approximately 30% loss of anterior vertebral height. She has a low-dose CT of the chest done in May, which shows Lung-RADS category 4A solid nodule greater than 8 to less than 50 mm. It showed hyperinflated lung, peribronchial thickening. IMPRESSION AND PLAN: Status post mechanical fall with T12 compression fracture, chronic obstructive lung disease, pulmonary nodule, history of gastroesophageal reflux disease, suspected sleep apnea syndrome. I agree with the present management. We will add inhaled bronchodilator, cough suppressor, proton inhibitors, gastric prophylaxis, DVT prophylaxis. Repeat CT of the chest to follow up for lung nodule from lung screening three months ago. Interventional radiology consult for possible vertebroplasty. Thank you and we will follow with you. Adeola Winn MD
[2018-09-18] MEDS: Albuterol-Ipratrop 3 mg / 0.5 (3 ml) UD IH SCH ×2 (01:30→07:57)
[2018-09-18] MEDS ORDERED: Pantoprazole 40 mg EC Tab PO SCH (06:00)
[2018-09-18 08:25] VITALS: BP 112/64; PULSE 65; RESP 17; TEMP 97.8; O2SAT 96
[2018-09-18 08:33] LABS: BASO # 0.03 K/mm3 (0.0-2.0); BASO % 0.6 % (0.0-3.0); EOS # 0.3 (0.0-0.7); EOS % 6.7 % (1.5-5.0); GRAN # 3.06 (1.4-6.5); GRAN % 59.9 % (50.0-68.0); HEMOGLOBIN 11.7 g/dL (12.0-16.0); LYMPH # 1.3 (1.2-3.4); LYMPH % 25.8 % (22.0-35.0); MEAN CELL VOLUME 88.5 fl (80.0-105.0); MEAN CORPUSCULAR HEMOGLOBIN 28.1 pg (25.0-35.0); MEAN CORPUSCULAR HGB CONC 31.8 g/dl (31.0-37.0); MEAN PLATELET VOLUME 10.1 fl (7.0-11.0); MONO # 0.4 (0.1-0.6); RBC 4.16 10^6/uL (3.5-6.1); RED CELL DISTRIBUTION WIDTH 14.2 % (11.5-14.5); WHITE BLOOD COUNT 5.1 10^3/uL (4.5-11.0)
[2018-09-18 08:56] LABS: ALB/GLOB RATIO 1.3 (1.1-1.8); ALBUMIN 3.8 g/dL (3.0-4.8); ALT/SGPT 19 U/L (7-56); AST/SGOT 31 U/L (14-36); BLOOD UREA NITROGEN 16 mg/dL (7-21); CALCIUM 9.5 mg/dL (8.4-10.5); GFR NON-AFRICAN AMERICAN > 60
[2018-09-18] MEDS: Cholecalciferol 1,000 INTLU TAB PO SCH (09:35)
[2018-09-18] MEDS: Tolterodine 4 mg ER Cap PO SCH (09:35)
[2018-09-18] MEDS ORDERED: Acetylcysteine 20% Inhal Soln (4ml) IH SCH (10:00)
--- NOTE | 2018-09-18 11:09 | CT ---
Date of service: 09/18/2018 PROCEDURE: CT Chest without contrast HISTORY: follow up for lung nodule COMPARISON: CT chest dated 06/28/2018. TECHNIQUE: Contiguous axial images were obtained through the chest without intravenous contrast enhancement. Sagittal and coronal reconstructions were performed. Radiation dose: Total exam DLP = 160.25 mGy-cm. This CT exam was performed using one or more of the following dose reduction techniques: Automated exposure control, adjustment of the mA and/or kV according to patient size, and/or use of iterative reconstruction technique. FINDINGS: LUNGS: Severe diffuse emphysema. Stable 4 mm nodule along the right minor fissure (series 3, image 65). 1.0 cm subpleural right lower lobe nodule (series 3, image 68) versus atelectatic change. Clear lungs. Visualized airway clear MEDIASTINUM: Implanted cardiac device leads. Unremarkable thoracic aorta. No aneurysm. Normal sized heart. Main pulmonary artery unremarkable. No vascular congestion. No lymphadenopathy. Aortic atherosclerotic calcifications present. PLEURA: No pleural fluid. No pneumothorax. BONES: Degenerative changes. New probable Schmorl node along the inferior T12 endplate. No destructive lesion. UPPER ABDOMEN: Grossly unremarkable. OTHER FINDINGS: None. IMPRESSION: Stable 4 mm nodule along the right minor fissure. New 1.0 cm right lower lobe subpleural nodule versus confluent atelectatic change. Short interval CT follow-up in 3 months is recommended to assess for resolution/stability/interval change. New probable Schmorl node along the inferior T12 endplate plate
--- NOTE | 2018-09-18 12:40 | HP ---
DATE OF EXAM: 09/16/2018 HISTORY OF PRESENT ILLNESS: This is 78-year-old woman without any history of multiple falls at home, who fell today landing on her buttocks and complaining of immediate mid to low back pain. She came to the emergency department and compression fracture was noted. Therefore, arrangements were made for admission. PAST MEDICAL HISTORY: Significant for fall in the bath tub in April of this year as well as a fall in the past as well with fractured ribs and a fall with the fractured hip in 2013. She is also status post pacemaker placement one month ago July of 2018. Past medical history is significant for advanced COPD, cigarette smoking, coronary artery disease status post PCTA pacemaker placement in July of 2018, osteoporosis, sciatica status post laminectomy infusion, gastric AVMs, left hip fracture and status post appendectomy. HOME MEDICATIONS: Include Evista, fluticasone nasal spray, , Combivent, Crestor, Ventolin HFA, Protonix,Detrol, aspirin, Plavix and meloxicam. ALLERGIES: SHE SAID SHE IS ALLERGIC TO DEMEROL AND CODEINE, THAT REPORTEDLY CAUSE RASH; AZITHROMYCIN GIVES HER AN UPSET STOMACH AND DILAUDID CAUSE AGITATION. SOCIAL HISTORY: She quit smoking in 2013. She rarely drinks alcohol. Drinks 1 cup of coffee per day. Eats regular diet. She has been disabled since 1993 because of back pain. She is with growned children. FAMILY HISTORY: Noncontributory and due to the patient's age. REVIEW OF SYSTEMS: Unremarkable, except for symptoms related to arthritis, osteoporosis, low back pain, fractures in the past. PHYSICAL EXAMINATION: GENERAL: Patient seen in room 562, bed 2. Resting comfortably at rest, but uncomfortable with movement . She is fatigue, frail with dark black hair, light complexion. HEAD AND NECK: Otherwise unremarkable. Conjunctivae were pink. Mucous membranes are moist. NECK: Supple without masses. Thyroid is not palpable. LUNGS: Good aeration, right and left but markedly decreased breath sounds with COPD with prolong expiratory phase. HEART: Regular. Pacemaker is present. ABDOMEN: Thin, soft, nontender. EXTREMITIES: Show no edema with decreased DP and PT pulses. IMPRESSION: 1. Compression fracture of the lumbar spine. Due to mechanical slip and fall. 2. Recent fall at home with right-sided rib fractures. 3. Coronary artery disease. 4. Recent implantation of pacemaker. 5. Chronic obstructive pulmonary disease. 6. Status post lumbar surgery. 7. Osteoarthritis. 8. Osteoporosis. PLAN: Patient is relatively comfortable at this time. We will order analgesics as needed basis. I talked to her about availability and possibility of kyphoplasty only if there is persistent pain after several days. Will have Dr. Nick Humphrey to consult as well as Dr. Winn, the core inserter who knows her well. Barak Mccarthy MD
--- NOTE | 2018-09-18 13:00 | PN ---
DATE: 09/18/2018 PULMONARY PROGRESS NOTE REFERRING PHYSICIAN: Barak Mccarthy MD SUBJECTIVE: The patient lying in bed, no acute distress. Reports cough with no sputum production. No headache, rhinitis, shortness of breath, chest pain, abdominal pain, nausea, vomiting, diarrhea, leg pain, leg swelling reported. PHYSICAL EXAMINATION: GENERAL: No acute distress. VITAL SIGNS: Blood pressure 112/64, pulse 65, temperature 97.8, oxygen saturation 96% on room air. HEENT: Moist mucous membranes. Crowded airway. NECK: Supple. No JVD. LUNGS: Few rhonchi bilaterally. No audible wheezing. CARDIOVASCULAR: S1 and S2 audible. ABDOMEN: Soft and nontender. No distention. No organomegaly. EXTREMITIES: No bilateral lower extremity edema. NEUROLOGIC: Awake, alert, verbal, and follow simple commands. MEDICATIONS: Reviewed. Tylenol 650 mg every 4 hours p.r.n. mild pain, Mucomyst 3 mL inhalation twice a day, DuoNeb 3 mL inhalation every 4 hours p.r.n., DuoNeb 3 mL inhalation every 6 hours, Brovana 15 mcg every 12 hours, aspirin 81 mg daily, Lipitor 20 mg at dinner, Cepacol lozenges every 2 hours p.r.n., Tessalon Perles 200 mg three times a day, Pulmicort 0.5 mg every 12 hours, calcium carbonate 600 mg twice a day, vitamin D 1000 units daily, Plavix 75 mg daily, Reglan 5 mg every 12 hours, Singulair 10 mg at bedtime, Percocet 5/325 mg one tab every 4 hours p.r.n., Protonix 40 mg twice a day, Lyrica 25 mg twice a day, Detrol LA 4 mg daily, tramadol 50 mg every 6 hours p.r.n. moderate pain, Ambien 5 mg p.o. h.s. p.r.n. LABORATORY DATA: Reviewed. WBC 5.1, RBC 4.16, hemoglobin 11.6, hematocrit 36.8, platelets 193. Sodium 138, potassium 4.3, chloride 103, carbon dioxide 30, anion gap 9, BUN 16, creatinine 0.6, GFR greater than 60. Random glucose 74, calcium 9.5, total bilirubin 0.3, AST 31, ALT 19, alkaline phosphatase 54, total protein 6.7, albumin 3.8, globulin 2.9, albumin globulin ratio 1.3. Chest CT showed stable 4 mm nodule along the right minor fissure. There is a new 1 cm right lower lobe subpleural nodule versus confluent atelectatic change. New probable Schmorl node along the inferior T12 end plate. IMPRESSION AND PLAN: Status post mechanical fall with T12 compression fracture, chronic obstructive lung disease, pulmonary nodules, history of gastroesophageal reflux disease, obstructive sleep apnea syndrome. Pulmonary point of view: Continue inhaled bronchodilators, cough suppressor, gastric prophylaxis, deep venous thrombosis prophylaxis. We will add Zithromax 250 mg daily for chronic lung disease. We will speak with the patient and family in detail regarding chest CT finding, nodule and discuss options of biopsy versus followup CT scan. Sleep apnea precaution, head of bed elevated 45 degrees. This patient was seen and examined with Dr. Winn. Discussed assessment and plan as described above. Thank you for this consult. We will follow with you. Alvin Yao APN Adeola Winn MD [place]
--- NOTE | 2018-09-19 03:11 | DS ---
HISTORY OF PRESENT ILLNESS: This is a 78-year-old woman with a history of multiple falls at home, who fell landing on her buttocks with a low back pain. She came to the emergency room, x-ray showed compression fracture and so arrangements were made for her to be admitted from possible pain management and or kyphoplasty if the pain persisted. PAST MEDICAL HISTORY: Significant for other falls in the recent past with broken ribs, a pacemaker placed 1 month ago and advanced COPD. COURSE OF HOSPITAL STAY: The patient was admitted to the medical floor, treated with analgesics, although she did not want opiates. She did not rather well during her 2 overnights at [facility]. She became more ambulatory and was pain free. I had explained the procedure of kyphoplasty should it be needed if pain continued. But she was doing so well. When I came to see her today, the date of discharge, she was dressed and asking to leave. FINAL DISCHARGE DIAGNOSES: 1. Compression fracture of lumbar spine. 2. Recent falls at home with right-sided rib fractures. 3. Fall with fractured hips several years ago. 4. Recent pacemaker placement on July 2018. 5. Coronary artery disease. 6. Severe chronic obstructive pulmonary disease. 7. Status post lumbar surgery. 8. Osteoarthritis. 9. Osteoporosis. PLAN: The patient is advised to follow up with us in 1 week. No new prescriptions were necessary. A routine follow up CY of the chest was ordered by Dr Dutton, her home health aid, who is following a chronic stable pulmonary nodule. The CT reports a possible NEW 1 cm nodule and recommends [address] This will be scheduled as an out patient in a few months. Discussed with Dr Dutton. Barak Mccarthy MD [place]
== END 2018-09-18 12:30 | disposition home or self-care (01) | DRG 543 ==
LOC: ED 15:47 → ERH 19:13 → 5RNO 21:01
PROVIDERS: ADMIT Internal Medicine; ATTEND Internal Medicine
DX: M48.56XA Collapsed vertebra, not elsewhere classified, lumbar region, initial encounter for fracture (principal); S22.089A Unspecified fracture of T11-T12 vertebra, initial encounter for closed fracture; M81.0 Age-related osteoporosis without current pathological fracture; E78.5 Hyperlipidemia, unspecified; G47.33 Obstructive sleep apnea (adult) (pediatric); I10 Essential (primary) hypertension; I25.10 Atherosclerotic heart disease of native coronary artery without angina pectoris; J44.9 Chronic obstructive pulmonary disease, unspecified; K21.9 Gastro-esophageal reflux disease without esophagitis; M19.90 Unspecified osteoarthritis, unspecified site; W18.2XXA Fall in (into) shower or empty bathtub, initial encounter; Y93.E1 Activity, personal bathing and showering; Z79.02 Long term (current) use of antithrombotics/antiplatelets; Z79.82 Long term (current) use of aspirin; Z87.01 Personal history of pneumonia (recurrent); Z87.440 Personal history of urinary (tract) infections; Z87.442 Personal history of urinary calculi; Z87.891 Personal history of nicotine dependence; Z90.49 Acquired absence of other specified parts of digestive tract; Z95.0 Presence of cardiac pacemaker; Z95.2 Presence of prosthetic heart valve; Z95.5 Presence of coronary angioplasty implant and graft; Z96.641 Presence of right artificial hip joint; Z88.5 Allergy status to narcotic agent; Z87.892 Personal history of anaphylaxis; R40.2412 Glasgow coma scale score 13-15, at arrival to emergency department

== ENCOUNTER 2018-12-04 20:19 | Inpatient (IN) | payer MEDICARE, OTHER ==
[2018-12-04] MEDS ORDERED: Magnesium Sulfate 2 GM in Sodium Chloride 0.9% 100 ML IVPB ONE (20:32)
[2018-12-04] MEDS ORDERED: Magnesium Sulfate 2 GM in 50 ml Water IVPB ONE (20:45)
[2018-12-04] MEDS: Albuterol-Ipratrop 3 mg / 0.5 (3 ml) UD IH SCH ×3 (20:49→21:14)
[2018-12-04 21:09] LABS: BASO # 0.02 K/mm3 (0.0-2.0); BASO % 0.2 % (0.0-3.0); EOS # 0.2 (0.0-0.7); EOS % 2.3 % (1.5-5.0); HEMOGLOBIN 12.8 g/dL (12.0-16.0); LYMPH # 0.8 (1.2-3.4); LYMPH % 9.7 % (22.0-35.0); MEAN CELL VOLUME 89.3 fl (80.0-105.0); MEAN CORPUSCULAR HEMOGLOBIN 28.1 pg (25.0-35.0); MEAN CORPUSCULAR HGB CONC 31.4 g/dl (31.0-37.0); MONO # 0.6 (0.1-0.6); MONO % 6.7 % (1.0-6.0); RBC 4.56 10^6/uL (3.5-6.1); RED CELL DISTRIBUTION WIDTH 14.2 % (11.5-14.5); WHITE BLOOD COUNT 8.2 10^3/uL (4.5-11.0)
[2018-12-04 21:17] LABS: ALB/GLOB RATIO 1.2 (1.1-1.8); ALBUMIN 4.1 g/dL (3.0-4.8); ALT/SGPT 17 U/L (7-56); AST/SGOT 33 U/L (14-36); BLOOD UREA NITROGEN 14 mg/dL (7-21); CALCIUM 8.9 mg/dL (8.4-10.5); GFR NON-AFRICAN AMERICAN > 60
[2018-12-04 21:29] LABS: B-TYPE NATRIURETIC PEPTIDE 962 pg/mL (0-450); TROPONIN I < 0.01 ng/mL
[2018-12-04] MEDS ORDERED: Azithromycin 500MG/NS 250ml 500 MG/250 ML BAG IVPB STA (22:06)
[2018-12-05 00:57] VITALS: BMI 25.6
--- NOTE | 2018-12-05 01:20 | ED PDOC ---
Arrival/HPI - General Chief Complaint: Shortness Of Breath Historian: Patient - Critical Care Critical Care Minutes: 30 minutes - History of Present Illness Narrative History of Present Illness (Text): 12/05/18 01:16 78 year old female, whose past medical history includes CAD, 7 stents, COPD, PNA, renal disorder, right ankle pin, right knee fx with pin, carpal tunnel, right hip replacement, vertebrae replacement with 2 screws, 2 rods, and 2 artificial vertebrae to cervical spine, and 2 in mid back, left knee, presents to the Emergency department with shortness of breath, for past few days. Patient informs she has had a dry cough and has been breathing hard at times. Patient informs she was a former smoker and has a history of bronchitis. Patient states she did not take her nebulizer treatments at home because her machine is broken. Patient denies any recent travel. Patient denies any chest pain, fever, headache, dizziness, or any other complaint. Time/Duration: < week Symptom Onset: Gradual Symptom Course: Unchanged Activities at Onset: Light Context: Home Past Medical History - Provider Review Nursing Documentation Reviewed: Yes - Infectious Disease Hx of Infectious Diseases: None - Tetanus Immunization Tetanus Immunization: Unknown - Cardiac Hx Cardiac Disorders: Yes (CAD) Other/Comment: VALVE REPLACEMENT - Pulmonary Hx Respiratory Disorders: Yes Hx Chronic Obstructive Pulmonary Disease (COPD): Yes Hx Pneumonia: Yes - Neurological Hx Neurological Disorder: Yes Hx Dizziness: Yes (VERTIGO) Other/Comment: paralysis 20 yrs ago post fall for 6-8 wks - HEENT Hx HEENT Disorder: No - Renal Hx Renal Disorder: Yes Hx Kidney Stones: Yes - Endocrine/Metabolic Hx Endocrine Disorders: No - Hematological/Oncological Hx Blood Disorders: No - Integumentary Hx Dermatological Disorder: Yes Other/Comment: MULTIPLE BRUISING. - Musculoskeletal/Rheumatological Hx Falls: Yes - Gastrointestinal Hx Gastrointestinal Disorders: Yes Other/Comment: gi bleed - Genitourinary/Gynecological Hx Genitourinary Disorders: Yes Hx Urinary Tract Infection: Yes - Psychiatric Hx Psychophysiologic Disorder: No Hx Substance Use: No - Surgical History Hx Coronary Stent: Yes (7 STENTS) Other/Comment: right ankle pin, right knee fx with pin, carpal tunnel, right hip replacement, vertebrae replacement with 2 screws, 2 rods, 2 artificial verterbrae to cervical spine, and 2 in mid back, left knee. arthoscopic sx - Anesthesia Hx Anesthesia: Yes Hx Anesthesia Reactions: No Hx Malignant Hyperthermia: No - Suicidal Assessment Feels Threatened In Home Enviroment: No Family/Social History - Physician Review Nursing Documentation Reviewed: Yes Family/Social History: No Known Family HX Smoking Status: Former Smoker Hx Alcohol Use: No Hx Substance Use: No Hx Substance Use Treatment: No Allergies/Home Meds Allergies/Adverse Reactions: Allergies codeine Allergy (Verified 07/26/18 15:29) ANAPHYLAXIS hydromorphone HCl [From Dilaudid] Allergy (Verified 07/26/18 15:29) ANAPHYLAXIS meperidine HCl [From Demerol] Allergy (Verified 07/26/18 15:29) ANAPHYLAXIS Home Medications: Home Meds Medication Instructions Recorded Confirmed Aspirin [Adult Low Dose Aspirin EC] 81 mg PO DAILY 07/26/18 07/30/18 Clopidogrel [Plavix] 75 mg PO DAILY 07/26/18 07/30/18 Montelukast [Singulair] 10 mg PO DAILY 07/26/18 07/30/18 Rosuvastatin Calcium [Crestor] 1 tab PO DAILY 07/26/18 07/26/18 Tolterodine Tartrate [Detrol LA] 4 mg PO DAILY 07/26/18 07/30/18 Review of Systems - Physician Review All systems were reviewed & negative as marked: Yes - Review of Systems Constitutional: absent: Fevers Respiratory: SOB, Cough Cardiovascular: absent: Chest Pain Neurological: absent: Headache, Dizziness Physical Exam Vital Signs Reviewed: Yes Vital Signs Temp Pulse Resp BP Pulse Ox 12/04/18 21:44 91 H 22 111/61 95 12/04/18 20:20 97.4 F L 64 18 143/57 L 97 Temperature: Afebrile Blood Pressure: Normal Pulse: Regular Respiratory Rate: Normal Appearance: Positive for: Well-Appearing, Non-Toxic, Comfortable Pain Distress: Mild Mental Status: Positive for: Alert and Oriented X 3 - Systems Exam Head: Present: Atraumatic, Normocephalic Pupils: Present: PERRL Extroacular Muscles: Present: EOMI Conjunctiva: Present: Normal Mouth: Present: Moist Mucous Membranes Neck: Present: Normal Range of Motion Respiratory/Chest: Present: Wheezes (Coarse breath sounds bilaterally with expiratory wheezes bilaterally). No: Accessory Muscle Use Cardiovascular: Present: Regular Rate and Rhythm, Normal S1, S2. No: Murmurs Abdomen: No: Tenderness, Distention, Peritoneal Signs Back: Present: Normal Inspection Upper Extremity: Present: Normal Inspection. No: Cyanosis, Edema Lower Extremity: Present: Normal Inspection. No: Edema Neurological: Present: GCS=15, CN II-XII Intact, Speech Normal Skin: Present: Warm, Dry, Normal Color. No: Rashes Psychiatric: Present: Alert, Oriented x 3, Normal Insight, Normal Concentration Medical Decision Making ED Course and Treatment: 12/05/18 01:25 Impression: 78 year old female presents with shortness of breath and cough Plan: -- EKG -- Mag Sulfate -- Solumedrol -- Tamiflu -- Rocephin -- Zithromax -- Ambien -- Blood Cultures -- Reassess and disposition Prior Visits: Notes and results from previous visits were reviewed. Progress Notes: EKG reviewed by me, shows: Ventricularly paced at 61bpm 12/05/18 01:[address] Demetra Mccarthy who reviewed case, patient will be admitted to [facility] in isolation secondary to influenza. - Lab Interpretations Lab Results: Troponin I < 0.01 ng/mL 12/04/18 20:40 NT-Pro-B Natriuret Pep 962 pg/mL (0-450) H 12/04/18 20:40 Total Bilirubin 0.2 mg/dL (0.2-1.3) 12/04/18 20:40 AST 33 U/L (14-36) 12/04/18 20:40 ALT 17 U/L (7-56) 12/04/18 20:40 Alkaline Phosphatase 63 U/L (38-126) 12/04/18 20:40 Total Protein 7.5 g/dL (5.8-8.3) 12/04/18 20:40 Albumin 4.1 g/dL (3.0-4.8) 12/04/18 20:40 Globulin 3.3 gm/dL 12/04/18 20:40 Albumin/Globulin Ratio 1.2 (1.1-1.8) 12/04/18 20:40 - RAD Interpretation Radiology Orders: 12/04/18 20:33 CHEST PORTABLE [RAD] Stat - Medication Orders Current Medication Orders: Ceftriaxone Sodium (Rocephin 1 Gram Ivpb) 1 gm in 100 mls @ 100 mls/hr IVPB DAILY LAMAR; Protocol Zolpidem Tartrate (Ambien) 5 mg PO HS PRN; Protocol PRN Reason: Insomnia Last Admin: 12/04/18 23:12 Dose: 5 mg Re-Assess: Reassess Psych Meds Document 12/05/18 00:12 MB (Rec: 12/05/18 00:31 MB [facility] [id number]) Reassess Psych Med Effective Discontinued Medications Albuterol/Ipratropium (Duoneb 3 Mg/0.5 Mg (3 Ml) Ud) 3 ml IH Q15M LAMAR Stop: 12/04/18 21:16 Last Admin: 12/04/18 21:14 Dose: 3 ml Magnesium Sulfate (Magnesium Sulfate 2 Gm/50 Ml Water) 2 gm in 50 mls @ 50 mls/hr IVPB ONCE ONE Stop: 12/04/18 21:44 Last Admin: 12/04/18 20:50 Dose: 50 mls/hr eMAR Start Stop Document 12/04/18 20:50 CNR (Rec: 12/04/18 20:50 CNR [id number]) Intravenous Solution Start Date 12/04/18 Start Time 20:50 End Date 12/04/18 End time 21:50 Total Infusion Time 60 Azithromycin (Zithromax 500mg In Ns) 500 mg in 250 mls @ 167 mls/hr IVPB STAT STA; Protocol Stop: 12/04/18 23:35 Last Admin: 12/04/18 22:26 Dose: 167 mls/hr eMAR Start Stop Document 12/04/18 22:26 CNR (Rec: 12/04/18 22:28 CNR [id number]) Intravenous Solution Start Date 12/04/18 Start Time 22:28 End Date 12/04/18 End time 23:58 Total Infusion Time 90 Methylprednisolone (Solu-Medrol) 125 mg IVP STAT STA Stop: 12/04/18 20:33 Last Admin: 12/04/18 20:49 Dose: 125 mg IVP Administration Document 12/04/18 20:49 CNR (Rec: 12/04/18 20:49 CNR [id number]) Charges for Administration # of IVP Administrations 1 Oseltamivir Phosphate (Tamiflu Cap) 75 mg PO STAT STA; Protocol Stop: 12/04/18 22:07 Last Admin: 12/04/18 22:28 Dose: 75 mg - Scribe Statement The provider has reviewed the documentation as recorded by the Carmenibe Nick Choi All medical record entries made by the Carmenibelvira were at my direction and personally dictated by me. I have reviewed the chart and agree that the record accurately reflects my personal performance of the history, physical exam, medical decision making, and the department course for this patient. I have also personally directed, reviewed, and agree with the discharge instructions and disposition. Disposition/Present on Arrival - Present on Arrival Any Indicators Present on Arrival: No History of DVT/PE: No History of Uncontrolled Diabetes: No Urinary Catheter: No History of Decub. Ulcer: No History Surgical Site Infection Following: None - Disposition Have Diagnosis and Disposition been Completed?: Yes Diagnosis: COPD exacerbation, Influenza A Disposition: HOSPITALIZED Disposition Time: 21:45 Condition: GUARDED
[2018-12-05] MEDS ORDERED: Albuterol-Ipratrop 3 mg / 0.5 (3 ml) UD IH PRN (06:52)
[2018-12-05] MEDS: Albuterol-Ipratrop 3 mg / 0.5 (3 ml) UD IH SCH ×4 (07:24→21:04)
[2018-12-05] MEDS: Budesonide 0.5 mg/2 ml Inhal Susp UD IH SCH ×2 (07:25→21:05)
--- NOTE | 2018-12-05 08:26 | CON ---
DATE: 12/05/2018 PULMONARY CONSULTATION REFERRING PHYSICIAN: Dr. Mccarthy REASON FOR CONSULTATION: Chronic obstructive pulmonary disease. History is obtained via extensive discussion with the night nurse. I have also reviewed the chart at length, and discussed the case with the patient at length. The patient is a chronically ill 78-year-old female, with past medical history significant for advanced chronic obstructive pulmonary disease, former smoker, extensive coronary artery disease, status post multiple cardiac stents, previous falls at home, who presents to [facility] with increasing shortness of breath at rest, dyspnea on exertion, cough, and minimal sputum production for the past 3 days. There is no history of chest pain, coughing up of blood, or chest pain - brought on with deep respirations. The patient did state to temperatures at home. They have been no temperatures measured in the hospital. No history of chills or infectious exposure. No history of night sweats, weight loss, or appetite change prior to the above events. No history of calf pains. No history of syncope or diaphoresis. No history of recent travel or trauma. REVIEW OF SYSTEMS: No history of nausea, vomiting, or diarrhea. No acute urinary symptoms. No new neurologic complaints. Rest of the review of systems is negative. ALLERGIES: TO CODEINE, DILAUDID, AND DEMEROL. SOCIAL HISTORY: Positive for former tobacco usage. No alcohol. FAMILY HISTORY: No inheritable diseases. HOME MEDICATIONS: Include Detrol, Crestor, Singulair, Plavix, Keflex, aspirin. PHYSICAL EXAMINATION: GENERAL: The patient appears comfortable this morning. She is not short of breath at rest. She is not using accessory muscles for breathing. VITALS: Temperature is 97.4, pulse 64, respirations 18/20, blood pressure 110/62. Oxygen saturation on nasal cannula is 96%. HEENT: Normocephalic, atraumatic. No JVD. CARDIOVASCULAR: Systolic ejection murmur at the lower left sternal border. No S3 gallop. LUNGS: Decreased breath sounds at the bases. Mild rhonchi and wheezing bilaterally are appreciated. EXTREMITIES: No clubbing, cyanosis, or edema. Calves are nontender to palpation. GASTROINTESTINAL: Abdomen is soft, nontender, nondistended. Bowel sounds are positive. SKIN: No acute rash. NEUROLOGIC: Exam limited at the present time. PERTINENT LABORATORY DATA: Chest x-ray was done late last night and reviewed. I do not appreciate any new or significant infiltrates. Official results are pending. CBC: White count 8.2K, hemoglobin 12.8, hematocrit 40.7, platelets of 189,000. Complete metabolic profile: Glucose 121. B-type natriuretic peptide 962. Rest of the metabolic profile is within normal limits. Serologies were done for influenza A - positive. IMPRESSION: 1. Acute bronchitis. 2. Advanced chronic obstructive pulmonary disease. 3. Influenza A positivity. 4. Extensive coronary artery disease. PLAN: Again, I discussed the case with the night nurse at length. I have also reviewed the chart at length, and discussed the case with the patient at length. The patient presents to [facility] with a 3-day history of worsening pulmonary symptoms. Again, I did review the chest x-ray as above. I do not appreciate any new or significant infiltrates. Official results are pending. I have also reviewed the laboratory data. Influenza A serology positivity is noted. I will start the patient on Tamiflu this morning. On physical exam, there is mild to moderate bronchospasm noted. I will start the patient on DuoNeb treatments, inhaled Pulmicort, and intravenous steroids this morning. There is no significant alveolar-arterial gradient. Oxygen saturation on nasal cannula is 96%. The patient does state to feeling better this morning, and is clinically improved. However, given the above, the future status/prognosis for this patient does remain somewhat guarded. Additional Pulmonary intervention will be based on the clinical status of the patient. I will discuss the above with Dr. Mccarthy. Thank you very much for this pulmonary consultation. Kendrick Zimmerman MD [place]
[2018-12-05] MEDS: MethylPREDNISolone 40 mg Vial IVP SCH ×2 (09:16→21:09)
[2018-12-05] MEDS: levoFLOXacin 500 MG TAB PO SCH (09:18)
--- NOTE | 2018-12-05 09:23 | RAD ---
Date of service: 12/04/2018 HISTORY: cough r/o infiltrate COMPARISON: 09/16/2018 FINDINGS: LUNGS: Minimal bibasilar interstitial changes showing no change. PLEURA: No significant pleural effusion identified, no pneumothorax apparent. CARDIOVASCULAR: Aortic calcification Normal cardiac size. No pulmonary vascular congestion. OSSEOUS STRUCTURES: No significant abnormalities. VISUALIZED UPPER ABDOMEN: Normal. OTHER FINDINGS: Single lead pacemaker IMPRESSION: No active disease.
[2018-12-05] MEDS ORDERED: cefTRIAXone 1 gm 1 GM/100 ML BAG IVPB SCH (10:00)
[2018-12-05] MEDS: guaiFENesin 100 mg/5 ml Syrup UD PO PRN ×2 (13:53→17:30)
--- NOTE | 2018-12-05 17:23 | CARD ---
APPROVED REPORT Date of service: 12/04/2018 EKG Measurement Heart [id number] <Conclusion> Demand electronic ventricular pacemaker
[2018-12-06] MEDS: Albuterol-Ipratrop 3 mg / 0.5 (3 ml) UD IH SCH ×4 (01:20→20:40)
[2018-12-06] MEDS: Budesonide 0.5 mg/2 ml Inhal Susp UD IH SCH ×2 (07:24→20:40)
--- NOTE | 2018-12-06 09:26 | PN ---
DATE: 12/06/2018 PULMONARY NOTE SUBJECTIVE: The patient appears very comfortable this morning. She is not short of breath at rest. OBJECTIVE: VITALS (Last noted in the computer): Temperature is 97.9, pulse 60, respirations 18, blood pressure 119/58. Oxygen saturation on nasal cannula is 97%. HEENT: Normocephalic, atraumatic. No JVD. CARDIOVASCULAR: Systolic ejection murmur at the lower left sternal border. No S3 gallop. LUNGS: Improved breath sounds at the bases. Much less rhonchi. No wheezing this morning. EXTREMITIES: No clubbing, cyanosis, or edema. Calves are nontender to palpation. GASTROINTESTINAL: Abdomen is soft, nontender, and nondistended. Bowel sounds are positive. SKIN: No acute rash. NEUROLOGIC: Limited at the present time. IMPRESSION: 1. Acute bronchitis. 2. Advanced chronic obstructive pulmonary disease. 3. Influenza A positivity. 4. Extensive coronary artery disease. PLAN: The patient appears very comfortable this morning. She is not short of breath at rest. She does state to feeling much better overall. On physical exam, her bronchospasm is certainly less. In addition, there is no significant alveolar-arterial gradient. I will continue the current nebulizer treatments and decrease the intravenous steroids this morning. The patient also remains on oral Levaquin and oral Tamiflu. There have been no temperatures measured in the hospital. Clinical status of the patient appears significantly improved - compared to the initial presentation. The patient is advised to be out of bed as much as possible. I will discuss the above with the attending physician. Kendrick Zimmerman MD [place]
[2018-12-06] MEDS: Tolterodine 4 mg ER Cap PO SCH (10:05)
[2018-12-06] MEDS: levoFLOXacin 500 MG TAB PO SCH (10:05)
[2018-12-06] MEDS: MethylPREDNISolone 40 mg Vial IVP SCH ×2 (10:05→21:05)
--- NOTE | 2018-12-06 13:00 | CON ---
DATE: 12/06/2018 PULMONARY CONSULTATION NOTE REFERRING PHYSICIAN: Dr. Mccarthy. REASON FOR CONSOLATION: Chronic lung disease, suspected sleep apnea syndrome, cough, and shortness of breath. HISTORY OF PRESENT ILLNESS: This is a 78-year-old female well known to us from previous admissions and from as outpatient. The patient has past medical history significant for chronic obstructive lung disease, degenerative joint disease, coronary artery disease status post coronary stent, hypertension, hyperlipidemia, history of GI bleed in the past, complete heart block requiring pacemaker, right hip replacement, carpal tunnel syndrome, right knee fracture with pin, right ankle pin, vertebrae replacement with screws, and 2 rods and artificial vertebrae to cervical spine. The patient presented to emergency room complaining of shortness of breath for a couple of days. Reported that she had dry cough and has been having a hard time breathing. The patient did not take nebulizer treatment at home because she reports her machine is broken. Denies any recent travel or any sick contacts. Presently, the patient is lying in bed, reports having cough and shortness of breath. PAST MEDICAL HISTORY: As per history of present illness. ALLERGIES: CODEINE, HYDROMORPHONE, AND MEPERIDINE. SOCIAL HISTORY: Former smoker. Denies EtOH abuse. No illicit drug use. FAMILY HISTORY: No significant cardiopulmonary disease reported. MEDICATIONS: Reviewed. DuoNeb 3 mL inhalation every 2 hours p.r.n., DuoNeb 3 mL inhalation every 6 hours, Xanax 1 mg twice a day, aspirin 81 mg daily, Lipitor 80 mg at dinner, Pulmicort 0.5 mg inhalation every 12 hours, Plavix 75 mg daily, Robitussin 100 mg every 4 hours p.r.n., Levaquin 500 mg daily, Solu-Medrol 30 mg every 12 hours, Singulair 10 mg daily, Tamiflu 75 mg twice a day, Detrol LA 4 mg p.o. daily, and Ambien 5 mg p.o. at bedtime p.r.n. REVIEW OF SYSTEMS: No headache, rhinitis, abdominal pain, nausea, vomiting, diarrhea, leg pain or leg swelling reported. The patient reports having cough. She reports to having shortness of breath. Reports having some chest discomfort when she coughs only. Reports last bowel movement was 2 days ago. PHYSICAL EXAMINATION: GENERAL: The patient is sitting up in bed, coughing. VITAL SIGNS: Blood pressure 122/62, pulse 61, temperature 98.3 and oxygen saturation 100% on nasal cannula. HEENT: Moist mucous membranes. Crowded airway. NECK: Supple. No JVD. LUNGS: Some rhonchi and wheezing bilaterally. CARDIOVASCULAR: S1 and S2. ABDOMEN: Soft and nontender. No distention. No organomegaly. EXTREMITIES: No bilateral lower extremity edema. NEUROLOGIC: Awake, alert, verbal, and follow simple commands. LABORATORY DATA: Reviewed. WBC 8.2, RBC 4.56, hemoglobin 12.8, hematocrit 40.7 and platelets 189. Sodium 141, potassium 4.6, chloride 107, carbon dioxide 26, anion gap 16, BUN 14, creatinine 0.8, GFR greater than 60, random glucose 121, calcium 8.9, magnesium 2.0, total bilirubin 0.2, AST 33, ALT 17, alkaline phosphatase 63, lactate dehydrogenase 465 and total creatine kinase 29. Troponin less than 0.01. ProBNP 962, total protein 7.5, albumin 4.1, globulin 3.3 and albumin-globulin ratio 1.2. Influenza positive for influenza A. Blood culture preliminary no growth after 24 hours. EKG shows demand electronic ventricular pacemaker. Chest x-ray shows no active disease. Minimal bibasilar interstitial changes showing no change. IMPRESSION AND PLAN: Chronic obstructive pulmonary disease exacerbation, influenza, history of gastroesophageal reflux disease, suspected sleep apnea syndrome, degenerative joint disease, coronary artery disease, lumbar radiculopathy, valvular heart disease, hypertension, history of pulmonary nodule, agree with inhaled bronchodilators, antibiotic therapy and steroids. Continue leukotriene inhibitors. We will place the patient on Lyrica 25 mg twice a day and Tessalon Perles three times a day for cough. We will order continuous positive airway pressure 7 cm 30% oxygen nasal mask for suspected sleep apnea syndrome. Sleep apnea precaution, head of bed elevated at 45 degrees and gastric prophylaxis. We will place the patient on Protonix. We will place the patient on sequential compression devices due to history of gastrointestinal bleed in the past. This patient was seen and examined with Dr. Winn. Discussed assessment and plan as described above. This patient was seen and examined with Alvin Yao, nurse practitioner. Discussed assessment and plan as described above. Thank you for this consult and we will follow with you. Alvin Yao APN Adeola Winn MD [facility] # [id number]
[2018-12-06] MEDS: guaiFENesin 100 mg/5 ml Syrup UD PO PRN (19:27)
[2018-12-06] MEDS ORDERED: Pantoprazole 40 mg EC Tab PO SCH (22:00)
[2018-12-07] MEDS: Albuterol-Ipratrop 3 mg / 0.5 (3 ml) UD IH SCH ×3 (01:09→13:54)
[2018-12-07] MEDS: Budesonide 0.5 mg/2 ml Inhal Susp UD IH SCH (07:44)
[2018-12-07] MEDS ORDERED: Benzocaine/Menthol (Cepacol) Lozenge MT PRN (09:46)
[2018-12-07] MEDS ORDERED: POLYETHYLENE GLYCOL 3350 17 GM/Dose PACKET PO SCH (10:00)
[2018-12-07] MEDS: MethylPREDNISolone 40 mg Vial IVP SCH (10:19)
[2018-12-07] MEDS: levoFLOXacin 500 MG TAB PO SCH (10:20)
[2018-12-07] MEDS: Tolterodine 4 mg ER Cap PO SCH (10:20)
--- NOTE | 2018-12-07 12:09 | PN ---
DATE: 12/07/2018 PULMONARY PROGRESS NOTE REFERRING PHYSICIAN: Dr. Mccarthy. SUBJECTIVE: The patient is seen lying in bed. No acute distress. No overnight events reported. States that she still has cough, that is better, has shortness of breath with exertion. Reporting some sore throat this morning. The patient reports not using CPAP machine last night, states she does not want to use CPAP machine, also reports that she does not want to use Lyrica for cough. We will prefer to stay on just Tessalon Perles at this time. No headache, rhinitis, chest pain, abdominal pain, nausea, vomiting, diarrhea, leg pain or leg swelling reported. OBJECTIVE: GENERAL: No acute distress. VITAL SIGNS: Blood pressure 150/68, pulse 73, temperature 97.6 and oxygen saturation 96% on nasal cannula. HEENT: Moist mucous membranes. Crowded airway. NECK: Supple. No JVD. LUNGS: Rhonchi bilaterally. CARDIOVASCULAR: S1 and S2. ABDOMEN: Soft and nontender. No distention. No organomegaly. EXTREMITIES: No bilateral lower extremity edema. NEUROLOGIC: Awake, alert and verbal. Following commands. MEDICATIONS: Reviewed. DuoNeb 3 mL every 2 hours p.r.n., DuoNeb 3 mL inhalation every 6 hours, Xanax 1 mg twice a day, aspirin 81 mg daily, Lipitor 80 mg at dinner, Cepacol throat lozenges every 2 hours p.r.n., Tessalon Perles 100 mg 3 times a day, Pulmicort 0.5 mg inhalation every 12 hours, Plavix 75 mg daily, clotrimazole 10 mg five times a day, Robitussin 100 mg every 4 hours p.r.n., Levaquin 500 mg daily, Solu-Medrol 30 mg every 12 hours, Singulair 10 mg daily, Tamiflu 75 mg twice a day, Protonix 40 mg at bedtime, MiraLax 17 g daily, Lyrica 25 mg twice a day, Detrol LA 4 mg daily and Ambien 5 mg at bedtime p.r.n. LABORATORY DATA: Reviewed. Blood cultures preliminary no growth after 48 hours. IMPRESSION AND PLAN: Chronic obstructive pulmonary disease exacerbation, influenza A, gastroesophageal reflux disease, suspected sleep apnea syndrome, degenerative joint disease, coronary artery disease, lumbar radiculopathy, hypertension, history of pulmonary nodule, valvular heart disease. Continue inhaled bronchodilators. Continue antibiotic therapy. Continue steroids, leukotriene inhibitors. We will discontinue Lyrica as the patient does not want to take Lyrica. Continue Tessalon Perles for cough p.r.n. cough medicine. Continue to encourage continuous positive airway pressure use at bedtime, sleep apnea precaution, head of bed elevated at 45 degrees. Continue gastric prophylaxis, sequential compression devices to bilateral lower extremities for deep venous thrombosis prophylaxis due to history of gastrointestinal bleed, fall precautions. Recommend physical therapy, out of bed to chair. Agree with Cepacol throat lozenges for the patient's complaint of sore throat. This patient was seen and examined with Dr. Winn. Discussed assessment and plan as described above. This patient was seen and examined with Alvin Yao, nurse practitioner. Discussed assessment and plan as described above. Thank you for this consult and we will follow with you. Alvin Yao APN Adeola Winn MD
[2018-12-07 15:31] VITALS: BP 130/69; PULSE 60; RESP 18; TEMP 97.9; O2SAT 97
--- NOTE | 2018-12-08 11:39 | PN ---
DATE: 12/06/2018 SUBJECTIVE: The patient was seen this morning in room 570, bed 1. She is clinically improving, breathing a bit easier, less short of breath, less wheezing, although still a bit dyspneic with activity about the room. I spoke with the patient at length. Unfortunately, we errored in that her tank house operator is Dr. Winn, who has been seeing her as an outpatient. I spoke with Dr. Zimmerman, my thanks and appreciation to him for his care. This patient, in the recent past, changed pulmonologists so I will relieve him from the case and I look forward to working with Dr. Winn on this unfortunate lady with extensive COPD. PHYSICAL EXAMINATION: LUNGS: Show improved aeration, right and left. Few residual scattered wheezes. ASSESSMENT AND PLAN: I hope to continue antibiotics, aerosol treatments, slowly taper the steroids and perhaps she will be ready for transfer to transitional care as early as tomorrow. Barak Mccarthy MD MTDD
--- NOTE | 2018-12-09 01:04 | DS ---
HOSPITAL COURSE: This is a 78-year-old woman with COPD who presented to acute care facility at [facility] complaining of respiratory distress and shortness of breath after a few days of having run out of her aerosol treatments, nebulizers and perhaps other medicines at home. She developed a cough and short of breath, came to the emergency room, evaluated and admitted. She was seen and admitted by Dr. Carlos Mccarthy followed by the canal driver, who was Dr. Flores and Erasmo, but we find that the patient had changed and had recently seen Dr. Winn. So, during the course of her hospital stay, Pulmonary consultations were switched. I thank Dr. Zimmerman for his work and I am looking forward to working with Dr. Winn in the future with this delightful young lady with severe COPD. Her course of hospital stay was uneventful. She improved clinically with less short of breath, ambulatory, still had a cough, complained of some mouth symptoms with what look like a thrush, irritation on the tongue, treated with Mycelex Barbara as nystatin liquid is not available. She had improved clinically and was ready for transfer to the Transitional Care Unit at [facility] for continued medication, antibiotic, aerosol treatment, and Pulmonary follow up with Dr. Winn and physical therapy. FINAL DISCHARGE DIAGNOSES: 1. Acute exacerbation of chronic obstructive pulmonary disease related to medication adherence issues . 2. Status post hip fracture. 3. Status post compression fracture of the lumbar spine. 4. Osteoporosis. 5. Nonsmoker, chronic obstructive pulmonary disease. 6. ALLERGY TO CODEINE, HYDROMORPHONE, AND MEPERIDINE. PLAN: We will continue to follow her on Transitional Care Unit. Barak Mccarthy MD
== END 2018-12-07 15:59 | DRG 192 ==
LOC: ED 20:19 → ERH 22:06 → OBSVTOIN 22:10 → ERH 23:19 → 5RSO 12-05 00:37
PROVIDERS: ADMIT Internal Medicine; ATTEND Internal Medicine
DX: J44.1 Chronic obstructive pulmonary disease with (acute) exacerbation (principal); J11.1 Influenza due to unidentified influenza virus with other respiratory manifestations; J20.9 Acute bronchitis, unspecified; J44.0 Chronic obstructive pulmonary disease with (acute) lower respiratory infection; M81.0 Age-related osteoporosis without current pathological fracture; M48.56XD Collapsed vertebra, not elsewhere classified, lumbar region, subsequent encounter for fracture with routine healing; I25.10 Atherosclerotic heart disease of native coronary artery without angina pectoris; I10 Essential (primary) hypertension; E78.5 Hyperlipidemia, unspecified; K21.9 Gastro-esophageal reflux disease without esophagitis; Z96.641 Presence of right artificial hip joint; Z87.891 Personal history of nicotine dependence; Z95.5 Presence of coronary angioplasty implant and graft; Z79.02 Long term (current) use of antithrombotics/antiplatelets; Z79.82 Long term (current) use of aspirin; Z88.5 Allergy status to narcotic agent; Z79.899 Other long term (current) drug therapy; Z87.81 Personal history of (healed) traumatic fracture

== ENCOUNTER 2018-12-07 16:02 | Inpatient (IN) | payer OTHER ==
[2018-12-07] MEDS ORDERED: Albuterol-Ipratrop 3 mg / 0.5 (3 ml) UD IH PRN ×2 (16:06→20:00)
[2018-12-07 16:10] VITALS: BMI 24.5
[2018-12-07] MEDS: MethylPREDNISolone 40 mg Vial IVP SCH (17:40)
[2018-12-07] MEDS: Budesonide 0.5 mg/2 ml Inhal Susp UD IH SCH (20:42)
[2018-12-07] MEDS: Arformoterol 15 mcg/2 ml Inh Sol IH SCH (20:42)
[2018-12-07] MEDS: Pantoprazole 40 mg EC Tab PO SCH (21:10)
[2018-12-08] MEDS: guaiFENesin 100 mg/5 ml Syrup UD PO PRN ×2 (00:33→23:13)
[2018-12-08] MEDS: levoFLOXacin 500 MG TAB PO SCH (05:37)
[2018-12-08] MEDS: MethylPREDNISolone 40 mg Vial IVP SCH ×2 (05:38→17:15)
[2018-12-08] MEDS: Arformoterol 15 mcg/2 ml Inh Sol IH SCH ×2 (07:06→20:13)
[2018-12-08] MEDS: Budesonide 0.5 mg/2 ml Inhal Susp UD IH SCH ×2 (07:06→20:13)
[2018-12-08] MEDS: POLYETHYLENE GLYCOL 3350 17 GM/Dose PACKET PO SCH (09:38)
[2018-12-08] MEDS ORDERED: Tolterodine 4 mg ER Cap PO SCH (10:00)
[2018-12-08] MEDS: Benzocaine/Menthol (Cepacol) Lozenge MT SCH ×4 (10:29→21:01)
--- NOTE | 2018-12-08 11:01 | CON ---
DATE: 12/08/2018 PULMONARY CONSULTATION NOTE REFERRING PHYSICIAN: Dr. Mccarthy. REASON FOR CONSOLATION: Chronic lung disease, suspected sleep apnea syndrome, cough and shortness of breath. HISTORY OF PRESENT ILLNESS: This is a 78-year-old female with past medical history significant for chronic obstructive lung disease, degenerative joint disease, coronary artery disease status post coronary stent, hypertension, hyperlipidemia, history of GI bleed in the past, complete heart block requiring pacemaker, right hip replacement, carpal-tunnel syndrome, right knee fracture with pin, right ankle pin, vertebrae replacement with screws, and 2 rods and artificial vertebrae to cervical spine. The patient presented to [facility] the [facility] complaining of shortness of breath and cough. The patient was treated for COPD, exacerbation and influenza A for which she is currently still receiving treatments. The patient transferred to [facility] for rehabilitation reconditioning. PAST MEDICAL HISTORY: As per history of present illness. ALLERGIES: CODEINE, HYDROMORPHONE AND MEPERIDINE. SOCIAL HISTORY: Former smoker. Denies EtOH abuse. No illicit drug use. FAMILY HISTORY: No significant cardiopulmonary disease reported. MEDICATIONS: Reviewed. DuoNeb 3 mL inhalation every 2 hours p.r.n., DuoNeb 3 mL inhalation every 6 hours p.r.n., Xanax 1 mg twice a day, Brovana 15 mcg every 12 hours, aspirin 81 mg, Tessalon-Perles 100 mg three times a day, Pulmicort 0.5 mg inhalation every 12 hours, Plavix 75 mg daily, clotrimazole 10 mg five times a day, Robitussin 100 mg every 4 hours p.r.n., Levaquin 500 mg daily, Solu-Medrol 20 mg twice a day, Singulair 10 mg at bedtime, Detrol LA 4 mg daily, Tamiflu 30 mg twice a day, Protonix 40 mg at bedtime, MiraLax 17 g daily and Ambien 5 mg p.o. at bedtime p.r.n. REVIEW OF SYSTEMS: No headache, rhinitis, abdominal pain, nausea, vomiting, diarrhea, leg pain or leg swelling reported. The patient does have cough, had shortness of breath with exertion and complaining also of sore throat. PHYSICAL EXAMINATION: GENERAL: No acute distress. Noted ambulating in room. VITAL SIGNS: Blood pressure 134/88, pulse 84 and temperature 97.5. HEENT: Moist mucous membranes. Crowded airway. NECK: Supple. No JVD. LUNGS: Rhonchi bilaterally. CARDIOVASCULAR: S1 and S2. ABDOMEN: Soft and nontender. No distention. No organomegaly. EXTREMITIES: No bilateral lower extremity edema. NEUROLOGIC: Awake, alert and verbal. Following commands. LABORATORY DATA: Reviewed. No new labs. IMPRESSION AND PLAN: Chronic obstructive pulmonary disease exacerbation, influenza A, gastroesophageal reflux disease, suspected sleep apnea syndrome, degenerative joint disease, coronary artery disease, lumbar radiculopathy, valvular heart disease, hypertension, history of pulmonary nodules. Continue inhaled bronchodilators. We will change DuoNeb to routine. Continue leukotriene inhibitors. Continue antibiotic therapy. Continue Tessalon Perles for cough. Continue to encourage continuous positive airway pressure use at bedtime, sleep apnea precaution, head of bed elevated at 45 degrees and gastric prophylaxis. Will use sequential compression devices to bilateral lower extremities for deep venous thrombosis prophylaxis. This patient has history of gastrointestinal bleed in the past. Fall precaution. Physical therapy. We will place the patient on Cepacol throat lozenges for complaint of sore throat. Continue current steroid dosing at this time. This patient was seen and examined with Dr. Winn. Discussed assessment and plan as described above. This patient was seen and examined with Alvin Yao nurse practitioner. Discussed assessment and plan as described above. Thank you for this consult and we will follow with you. Alvin Yao APN Adeola Winn MD
--- NOTE | 2018-12-08 15:48 | PN ---
DATE: 12/08/2018 SUBJECTIVE: The patient was seen this Monday morning on telemetry in room 304, bed 1, undergoing evaluation for physical therapy. Later in the day, I saw her ambulating about the floor on 3R with the physical therapist and rolling walker making rather nice improvements with little exertional dyspnea, but with oxygen on board. PHYSICAL EXAMINATION: LUNGS: Shows improved aeration, right and left, although we get a few wheezes at the right base, but overall air exchange is good given the severity of her COPD. EXTREMITIES: Show no edema. ABDOMEN: Soft. PLAN: Continue physical therapy, ambulation, we will taper her steroids tomorrow. Case was discussed with Dr. Winn. We will work together on her pulmonary status and improvement. Barak Mccarthy MD
[2018-12-08 17:23] VITALS: PULSE 69
--- NOTE | 2018-12-08 20:43 | PCM.FALL ---
<Ryan Ornelas - Last Filed: 12/08/18 20:39> Post Fall Progress Note - Post Fall Fall Date: 12/08/18 Fall Time: 20:32 Description of Fall: Patient seen and examined shortly after code star called. Patient states that she fell on to her R knee while trying to get to her walker. She denies head trauma, worsened R knee pain, or back pain. Patient states she has broken her R knee before and does not have that type of pain at this time. Patient was seen and examined ambulating from chair to her walker without significant difficulty or pain. - Post Fall Exam Vital Sign: Temp Pulse Resp BP Pulse Ox 97.5 F L 69 20 148/75 94 L 12/08/18 17:22 12/08/18 17:22 12/08/18 17:22 12/08/18 17:22 12/08/18 17:22 Skull Exam: Negative for: Scalp wound, Scalp hematoma, Scalp depression, Ridge in skull Eye Exam: Positive for: Pupils equal, Pupils reactive Ear Exam: Negative for: Discharge, Bleeding Nose Exam: Negative for: Discharge, Bleeding Skin Exam: Negative for: Lacerations, Bruising Mouth Exam: Negative for: Tongue bitten, Teeth dislodge Neck Exam: Negative for: Tenderness Spinal Exam: Negative for: Tenderness Chest Exam: Negative for: Difficulty breathing, Tenderness in collar bones, Tenderness in ribs Abdomen Exam: Negative for: Tenderness Arm Exam: Negative for: Alteration in range of movement Leg Exam: Negative for: Alteration in range of movement Impression/Plan: Patient seen and examined ambulating despite instruction not to ambulate. No malcom ss deformity witnessed. Patient ambulating without significant pain or difficulty. No further intervention warranted at this time. <Tu Taylor - Last Filed: 12/08/18 20:48> Post Fall Progress Note - Post Fall Exam Vital Sign: Temp Pulse Resp BP Pulse Ox 97.5 F L 69 20 148/75 94 L 12/08/18 17:22 12/08/18 17:22 12/08/18 17:22 12/08/18 17:22 12/08/18 17:22 Attending/Attestation - Attestation I have personally seen and examined this patient.: No I have fully participated in the care of the patient.: No I have reviewed all pertinent clinical information, including history, physical exam and plan: No
[2018-12-08] MEDS: Pantoprazole 40 mg EC Tab PO SCH (21:00)
--- NOTE | 2018-12-08 22:54 | HP ---
DATE OF EXAM: 12/08/2018 CHIEF COMPLAINT: Deconditioning after acute care hospital stay and need for further medication adjustment and tapering. HISTORY OF PRESENT ILLNESS: This is a 78-year-old woman I have known for many years who usually sees Dr. Carlos Mccarthy in the office. She presented to the acute care facility at [facility] complaining of worsening shortness of breath after having accidentally discontinued her home medications including aerosol treatments and nebulizer when they simply ran out. She was treated in the acute care facility at [facility], seen by her former senior communications engineer as well as her new current senior communications engineer, Dr. Winn and now comes to the Transitional Care Unit for additional physical therapy , IV antibiotics, and tapering of her IV steroids as well as close medical and pulmonary followup. PAST MEDICAL HISTORY: Significant for hypertension, coronary artery disease, status post PTCA, COPD, although she is a nonsmoker, never did smoke, renal calculi in the distant past, chronic low back, status post cervical and thoracic spine surgery. She walks with a walker. She had compression fractures of the spine in the past and has osteoporosis. She also underwent pinning of the right ankle post fracture. She is also status post right knee fracture and total right hip replacement. She is post surgery for carpal tunnel. MEDICATIONS: Include Plavix, Evista, aspirin, Protonix, Crestor, alprazolam, vitamins, folic acid, Xyzal, Singulair, oxycodone, Detrol, Ventolin, benzonatate Perles, iron supplements, vitamins, and Flonase nasal spray. SOCIAL HISTORY: She does not smoke, never did. Does not drink alcohol. ALLERGIES: SHE IS KNOWN TO BE ALLERGIC TO CODEINE, HYDROMORPHONE AND PYRIDIUM, WHICH HAS HAD A RATHER SEVERE ANAPHYLACTIC TYPE REACTION IN THE PAST. REVIEW OF SYSTEMS: On admission is essentially negative except for complaints related to the diagnoses listed above, mostly that being are respiratory, dyspnea with the severity of COPD and arthritic changes and complaints. PHYSICAL EXAMINATION: GENERAL: The patient is awake, alert, clear, oriented, and appropriate in response. HEAD AND NECK: Show her to be thin with some temporalis muscle wasting. Mucous membranes are moist. Neck is supple without masses. Thyroid is not palpable. There is no JVD. No carotid bruits. LUNGS: Show good aeration right and left with decreased breath sounds with severe COPD and a few scattered wheezes heard on occasion. HEART: Regular, not tachycardic. ABDOMEN: Thin and nontender. EXTREMITIES: Thin and a bit frail with no edema. IMPRESSION: 1. Acute exacerbation of chronic obstructive pulmonary disease related to medication error/compliance. 2. Chronic obstructive pulmonary disease in a nonsmoker who never smoked. 3. Coronary artery disease. 4. History of multiple fractures and compression fractures of the spine. 5. Hypertension. 6. Anxiety. 7. Seasonal allergies. 8. Chronic pain. 9. Chronic opiate use. PLAN: The patient will be admitted to the Transitional Care Unit. I will continue her current medication regimen as Dr. Winn to continue pulmonary followup. We will slowly taper her steroids over the course of the next few days. Continue IV antibiotics for now. Continue aerosol treatments indefinitely. Continue work with patient education on the importance of medication, although I think she has learned a lesson and follow closely. Barak Mccarthy MD
[2018-12-09] MEDS: MethylPREDNISolone 40 mg Vial IVP SCH ×2 (06:31→17:48)
[2018-12-09] MEDS: levoFLOXacin 500 MG TAB PO SCH (06:36)
[2018-12-09] MEDS: Budesonide 0.5 mg/2 ml Inhal Susp UD IH SCH ×2 (07:10→19:59)
[2018-12-09] MEDS: Arformoterol 15 mcg/2 ml Inh Sol IH SCH ×2 (07:10→19:59)
[2018-12-09] MEDS: Benzocaine/Menthol (Cepacol) Lozenge MT SCH ×4 (09:16→21:04)
[2018-12-09] MEDS: guaiFENesin 100 mg/5 ml Syrup UD PO PRN ×2 (09:23→21:05)
--- NOTE | 2018-12-09 12:19 | RAD ---
Date of service: 12/09/2018 PROCEDURE: Right Knee Radiographs. HISTORY: s/p fall; c/o pain COMPARISON: None. FINDINGS: BONES: Bone alignment is normal. There is mild diffuse bone demineralization. There is no acute displaced fracture or bone destruction. JOINTS: Normal. No osteoarthritis. JOINT EFFUSION: None. OTHER FINDINGS: None. IMPRESSION: No acute fracture or dislocation.
[2018-12-09] MEDS: POLYETHYLENE GLYCOL 3350 17 GM/Dose PACKET PO SCH (13:04)
--- NOTE | 2018-12-09 13:06 | PN ---
DATE: 12/09/2018 REFERRING PHYSICIAN: Dr. Mccarthy. SUBJECTIVE: The patient is seen lying in bed. No acute distress. The patient had a fall last night. States that she was getting up to go to her walker when she lost her balance and fell on her right knee. The patient states that she is having some pain to right knee. No swelling, no redness. States that she still has cough and sore throat. No headache, rhinitis, chest pain, abdominal pain, nausea, vomiting, diarrhea, or leg swelling reported. OBJECTIVE: GENERAL: No acute distress. VITAL SIGNS: Blood pressure 148/75, pulse 69, temperature 97.5, oxygen saturation 94% nasal cannula. HEENT: Moist mucous membranes. Crowded airway. NECK: Supple. No JVD. LUNGS: Rhonchi bilaterally. CARDIOVASCULAR: S1, S2. ABDOMEN: Soft, nontender. No distention. No organomegaly. EXTREMITIES: No bilateral lower extremity edema. Range of motion within normal limits to right lower extremity. No redness, no swelling noted. NEUROLOGIC: Awake, alert, verbal. Follows commands. MEDICATIONS: Reviewed. DuoNeb 3 mL inhalation every 6 hours p.r.n., Xanax 1 mg twice a day, Brovana 15 mcg every 12 hours, aspirin 81 mg daily, Cepacol throat lozenges four times a day, Tessalon Perles 100 mg 3 times a day, Pulmicort 0.5 mg every 12 hours, Plavix 75 mg daily, clotrimazole 10 mg five times a day, Robitussin 100 mg every 4 hours p.r.n., Levaquin 500 mg daily, Solu-Medrol 20 mg twice a day, Singulair 10 mg bedtime, Protonix 40 mg at bedtime, MiraLax 17 g daily, Detrol LA 4 mg daily, Ambien 5 mg at bedtime. LABORATORY DATA: Reviewed. No new labs. IMPRESSION AND PLAN: Chronic obstructive pulmonary disease exacerbation, influenza A, the patient completed Tamiflu, gastroesophageal reflux disease, suspected sleep apnea syndrome, degenerative joint disease, coronary artery disease, lumbar radiculopathy, valvular heart disease, hypertension, history of pulmonary nodule. The patient is status post fall from yesterday. Continue inhaled bronchodilators. Continue leukotriene inhibitors, antibiotic therapy. Continue to encourage continuous positive airway pressure use at bedtime, sleep apnea precaution, head of bed elevated at 45 degrees, gastric prophylaxis. Continue sequential compression devices to bilateral lower extremities for deep venous thrombosis prophylaxis, the patient has history of gastrointestinal bleed, fall precautions. We will order x-ray of the right knee for patient status post fall. We will also add as-needed ice packs to right knee and we will reevaluate the patient tomorrow regarding deceasing steroids. This patient was seen and examined with Dr. Winn. Discussed assessment and plan as described above. This patient was seen and examined with Alvin Yao, nurse practitioner. Discussed assessment and plan as described above. Thank you for this consult. We will follow with you. Alvin Yao APN Adeola Winn MD [place]
[2018-12-09] MEDS: Tolterodine 4 mg ER Cap PO SCH (20:02)
--- NOTE | 2018-12-09 20:43 | PN ---
DATE: 12/09/2018 SUBJECTIVE: The patient was seen this Monday morning in transitional care, room 304 as she ambulated in razo with physical therapy. She was awake, alert, and in good spirits. She still has a bit of a cough and some exertional dyspnea with exertion. She wears O2 while ambulating. PHYSICAL EXAMINATION: LUNGS: Show rather good aeration for her on both right and left, I was not able to appreciate any wheezing at this time. IMPRESSION: 1. Acute exacerbation of chronic obstructive pulmonary disease. 2. Severe chronic obstructive pulmonary disease. 3. Flu influenza. 4. Osteoporosis. 5, Osteoarthritis. 6. Compression fracture of the lumbar spine. 7. Thrush, currently treated with Mycelex Barbara. PLAN: Continue course of treatment and Pulmonary followup. Barak Mccarthy MD
[2018-12-09] MEDS: Pantoprazole 40 mg EC Tab PO SCH (21:03)
[2018-12-10] MEDS: levoFLOXacin 500 MG TAB PO SCH (06:12)
[2018-12-10] MEDS: MethylPREDNISolone 40 mg Vial IVP SCH (06:13)
[2018-12-10 06:43] LABS: HEMOGLOBIN 12.8 g/dL (12.0-16.0); LYMPH # 1.6 (1.2-3.4); MEAN CELL VOLUME 87.8 fl (80.0-105.0); MEAN CORPUSCULAR HEMOGLOBIN 27.4 pg (25.0-35.0); MEAN CORPUSCULAR HGB CONC 31.1 g/dl (31.0-37.0); MEAN PLATELET VOLUME 9.8 fl (7.0-11.0); MONO # 0.5 (0.1-0.6); MONO % 5.2 % (1.0-6.0); RBC 4.68 10^6/uL (3.5-6.1); RED CELL DISTRIBUTION WIDTH 13.9 % (11.5-14.5); WHITE BLOOD COUNT 9.5 10^3/uL (4.5-11.0)
[2018-12-10 07:05] LABS: BLOOD UREA NITROGEN 30 mg/dL (7-21); CALCIUM 9.3 mg/dL (8.4-10.5); GFR NON-AFRICAN AMERICAN > 60
[2018-12-10] MEDS: Arformoterol 15 mcg/2 ml Inh Sol IH SCH ×2 (07:16→20:19)
[2018-12-10] MEDS: Budesonide 0.5 mg/2 ml Inhal Susp UD IH SCH ×2 (07:16→20:19)
[2018-12-10] MEDS: Benzocaine/Menthol (Cepacol) Lozenge MT SCH ×4 (09:39→21:18)
[2018-12-10] MEDS: POLYETHYLENE GLYCOL 3350 17 GM/Dose PACKET PO SCH (09:39)
[2018-12-10 16:42] VITALS: O2SAT 93
[2018-12-10 16:47] VITALS: BP 115/68; RESP 17; TEMP 98.1
[2018-12-10] MEDS: Tolterodine 4 mg ER Cap PO SCH (21:19)
[2018-12-10] MEDS: Pantoprazole 40 mg EC Tab PO SCH (21:20)
[2018-12-10] MEDS: guaiFENesin 100 mg/5 ml Syrup UD PO PRN (21:20)
[2018-12-11] MEDS: levoFLOXacin 500 MG TAB PO SCH (06:01)
[2018-12-11] MEDS: Budesonide 0.5 mg/2 ml Inhal Susp UD IH SCH (07:13)
[2018-12-11] MEDS: Arformoterol 15 mcg/2 ml Inh Sol IH SCH (07:13)
[2018-12-11] MEDS ORDERED: MethylPREDNISolone 40 mg Vial IVP SCH (10:00)
--- NOTE | 2018-12-12 03:00 | DS ---
HOSPITAL COURSE: The patient is a 78-year-old female, who is admitted to [facility] with COPD exacerbation. She is known to have a history of COPD and chronic bronchitis. She was followed by Dr. Zimmerman, the paper rewinder. During her hospital stay, she was treated with intravenous steroids, antibiotics, nebulizer treatments, and bronchodilators and did well. She was transferred to the Transitional Care Unit for additional physical therapy and continued to do well. After 3 days on the Transitional Care Unit, the patient felt she wanted to go home and would do better and continue with her medications at that point. So, the patient is discharged to home to continue to take her medications as prior to hospitalization. A prescription for Medrol 4 mg tablets to be taken four times a day and tapered over time was sent to her local drug store [facility] and the patient will be seen post discharge. The patient was discharged in improved condition. DIAGNOSES: 1. Chronic obstructive pulmonary exacerbation. 2. Influenza type A infection. 3. Chronic bronchitis. Carlos Mccarthy MD [place]
== END 2018-12-11 08:42 | disposition home or self-care (01) | DRG 191 ==
LOC: TRCU 16:02
PROVIDERS: ADMIT Internal Medicine; ATTEND Internal Medicine
PROC: F07Z9FZ Gait Training/Functional Ambulation Treatment using Assistive, Adaptive, Supportive or Protective Equipment (ICD-10-PCS; principal; 2018-12-09)
PROC: F07Z5ZZ Bed Mobility Treatment (ICD-10-PCS; 2018-12-09)
PROC: F07L6YZ Therapeutic Exercise Treatment of Musculoskeletal System - Lower Back / Lower Extremity using Other Equipment (ICD-10-PCS; 2018-12-09)
PROC: F08Z1FZ Dressing Techniques Treatment using Assistive, Adaptive, Supportive or Protective Equipment (ICD-10-PCS; 2018-12-09)
PROC: F08Z2ZZ Grooming/Personal Hygiene Treatment (ICD-10-PCS; 2018-12-10)
DX: J44.1 Chronic obstructive pulmonary disease with (acute) exacerbation (principal); M80.88XA Other osteoporosis with current pathological fracture, vertebra(e), initial encounter for fracture; J11.1 Influenza due to unidentified influenza virus with other respiratory manifestations; B37.9 Candidiasis, unspecified; I10 Essential (primary) hypertension; I25.10 Atherosclerotic heart disease of native coronary artery without angina pectoris; J30.2 Other seasonal allergic rhinitis; K21.9 Gastro-esophageal reflux disease without esophagitis; M19.90 Unspecified osteoarthritis, unspecified site; F41.9 Anxiety disorder, unspecified; G89.29 Other chronic pain; E78.5 Hyperlipidemia, unspecified; Z96.641 Presence of right artificial hip joint; Z79.891 Long term (current) use of opiate analgesic; Z95.5 Presence of coronary angioplasty implant and graft; Z88.5 Allergy status to narcotic agent